=== PATIENT | female | born 1980 | race Caucasian/White ===

== ENCOUNTER 2020-09-14 07:09 | Inpatient (IN) ==
--- NOTE | 2020-09-14 07:34 | Emergency Department Note ---
Impression & Plan Pneumonia due to 2019 novel coronavirus, Hypokalemia, Hypomagnesemia, Hypophosphatemia, Hypoxia ED Provider Note NAME: OSCAR [id number] KINA AGE: 39 SEX: F ARRIVES VIA: Ambulance INFORMANT: Patient, ED PROVIDER(S): Jethro Hebert MD CHIEF COMPLAINT: Hypoxia, Sob PLAN: Disposition: Admit MEDICAL DECISION MAKING: The patient is a 39-year-old woman current snf inmate at [facility] with a past medical history of diabetes, morbid obesity, mood disorder, hypothyroidism hyper lipidemia, GERD who presents emerged department from snf facility for worsening shortness of breath with hypoxia in the 70s in the setting of being diagnosed with COVID-19 on Saturday seen emergency department 2 days ago for worsening symptoms with evidence of Covid pneumonia but with O2 saturation > 92% on room air and was started on dexamethasone. Since then, the patient has been worsening and feels as though she is unable to lie flat without becoming severely short of breath. Per EMS the patient was placed initially on nonrebreather to improve her oxygen saturation and so she was transitioned to nasal cannula. The patient denies any nausea or vomiting but does report regular diarrhea up to 5 times a day. On arrival the patient is ill-appearing, uncomfortable, febrile to 30.3 with heart in the 90s, tachypneic in the mid to upper 20s with blood pressure stable. She is saturating 94% on nasal cannula, 4 L. She does appear dry with cracked mucous membranes. Lungs with scant rhonchi at the bases with intermittent wheeze with mild increased work of breathing/accessory muscle use. EKG without overt acute ischemia. CXR with progression of multifocal PNA 2/2 Covid19. WBC and platelets wnl. H/H similar to prior. VBG unremarkable. Chemistry without acidosis. Potassium 3.0, Magnesium 1.5, and phosphorus 2.4 with repletion provided. LFTs unremarkable. Troponin negative. Bnp wnl. Procalcitonin 0.06, nonspecific and not convincing for superimposed bacterial infection at this time. UA negative for infection. Patient with some improvement after IVF hydration, dexamethasone, mucinex, Combivent. She agrees with plan for ad mission. Resident, Dr. Quijano discussed case with [place]. Gloria, [facility] [place], who will evaluate the patient for admission. This patient was managed with the assistance of resident, Dr. Quijano. I discussed the case with the resident, examined the patient, and confirm the findings and plan as documented in this note. Triage Nursing notes reviewed and agree them. Prior medical records reviewed Vital Signs: reviewed and remarkable for hypoxia and tachypnea. Differential diagnosis: Reactive airway disease, pneumonia, pneumothorax, COPD, CHF, infections, cardiac ischemia, pulmonary embolism, musculoskeletal, gastrointestinal, as well as other pathologies. ER treatment provided: See below. Diagnostics interpreted by me: ECG: Normal sinus rhythm, 92 bpm, no ectopy, no overt ST elevation or depression, QTC 42, QRS 88. Cardiac Monitoring: An order for continuous cardiac monitoring was placed and demonstrated Normal sinus rhythm, 92 bpm, no ectopy. Laboratory studies: See below Imaging studies: XR chest 1V portable CLINICAL HISTORY: SEPSIS COMPARISON STUDY: 09/12/2020 FINDINGS: The cardiac and mediastinal contours remain stable. There are multifocal airspace opacities consistent with a multifocal pneumonia. The findings are minimally progressive. Note is again made of a spinal stimulator.[ IMPRESSION: 1. Slight progression in the multifocal airspace opacities consistent with a multifocal pneumonia. -- CT angio chest PE protocol CT DOSE: 518.68 mGycm HISTORY: 39 years-old Female with PE. Acute hypoxia. COVID Positive. TECHNIQUE: Multiple CTA images of the chest were obtained after the intravenous administration of 120 ml Optiray 320. Coronal and sagittal MIPS were obtained from the axial data set and were submitted for review. All measurements were obtained according to NASCET criteria. A dose lowering technique was utilized adhering to the principles of ALARA. COMPARISON: Chest radiograph of same day FINDINGS: CTA: The heart is mildly enlarged. No pericardial effusion. No thoracic aortic aneurysm or dissection. There is patency of the imaged great vessels. Respiratory motion artifact limits the study. The pulmonary artery is opacified to the level of the proximal subsegmental branches and demonstrates no filling defects to suggest thromboembolic disease. CT CHEST: Unremarkable thyroid. Prominent mildly enlarged mediastinal and hilar lymph nodes measure up to 12 mm in short axis. Trace pleural effusions. No pneu mothorax. Moderate multilobar distribution of patchy groundglass and alveolar opacities. Central airways are patent. Hepatosplenomegaly with hepatic steatosis. Unremarkable soft tissues. The spinous processes at T8 and T9 or surgically absent. Postsurgical metallic density foci noted within the posterior aspect of the central canal and nearly the posterior elements at this level. IMPRESSION: 1. No pulmonary emboli. 2. Moderate multifocal groundglass and alveolar opacities throughout the bilat eral lungs is compatible with multifocal pneumonia. 3. Mild mediastinal and hilar adenopathy, likely reactive. 4. Hepatosplenomegaly with hepatic steatosis. ACT 112: Negative or not required by law. Consultation(s): Case was discussed with Dr. Gloria, [facility] [place], who will evaluate the patient for admission. HPI: The patient is a 39-year-old woman current snf inmate at [facility] with a past medical history of diabetes, morbid obesity, mood disorder, hypothyroidism hyper lipidemia, GERD who presents emerged department from snf facility for worsening shortness of breath with hypoxia in the 70s in the setting of being diagnosed with COVID-19 on Saturday seen emergency department 2 days ago for worsening symptoms with evidence of Covid pneumonia but with O2 saturation > 92% on room air and was started on dexamethasone. Since then, the patient has been worsening and feels as though she is unable to lie flat without becoming severely short of breath. Per EMS the patient was placed initially on nonrebreather to improve her oxygen saturation and so she was transitioned to nasal cannula. The patient denies any nausea or vomiting but does report regular diarrhea up to 5 times a day. ROS: See above HPI for pertinent positives & negatives. A total of 10 systems reviewed and were otherwise negative. PAST MEDICAL HISTORY:See Below PAST SURGICAL HISTORY:See Below FAMILY HISTORY:See Below SOCIAL HISTORY:See Below HOME MEDICATIONS:See Below ALLERGIES:See Below VITALS:See Below PHYSICAL EXAMINATION: GENERAL: Awake, alert, ill-appearing, in no distress, BMI 44. HENT: Normocephalic, atraumatic. Oropharynx with dry/cracked mm. EYES: Normal conjunctiva. Sclera non-icteric. NECK: Supple. No nuchal rigidity. FROM. No JVD. RESPIRATORY: Rhonchi at bases with intermittent wheeze. Mild increased WOB with accessory muscle use. CARDIAC: Regular rate, normal rhythm. Extremities warm and well perfused. Pulses equal. ABDOMEN: Soft, non-distended. No tenderness to palpation. No rebound or guarding. No masses. RECTAL: Deferred. MUSCULOSKELETAL: Chest examination reveals no tenderness. The back is symmetrical on inspection without obvious abnormality. There is no CVA tenderness to palpation. No joint edema. LOWER EXTREMITIES: Calves are equal size bilaterally and non-tender. No edema. No discoloration. NEURO: Normal sensorium. No sensory or motor deficits noted. SKIN: No rash or jaundice noted. Jethro Hebert MD Past Med/Surg History Medical History COVID-19 Diabetes GERD (gastroesophageal reflux disease) Hypercholesterolemia Hypothyroid Mood disorder Morbid obesity with BMI of 40.0-44.9, adult Family History Grandmother Cerebral aneurysm Other Myocardial infarction Stroke Denies family history of Deep vein thrombosis Pulmonary embolism Social History Smoking Status: Former smoker Number of Years Since Quit: 5; Hx Alcohol Use: No Hx Substance Use: No Preferred Language: Hungarian Communication Ability: Effective Kinesiology Professor Required: No Beliefs That Will Affect Care: None Current Living Situation: Other Current Living Situation Comment: [facility] Other Information That Helps Us Care for You: No Feels Safe at Home: No Assistive Devices: Oxygen - Continuous Allergies Allergies Allergy/AdvReac Type Severity Reaction Status Date / Time cephalexin [From Keflex] Allergy Severe Unknown Verified 09/14/20 17:54 ketorolac [From Toradol] Allergy Severe Unknown Verified 09/14/20 17:54 Penicillins Allergy Severe Unknown Verified 09/14/20 17:54 latex Allergy Mild Unknown Verified 09/14/20 17:54 Home Meds Home Medications Medication Instructions Recorded Confirmed albuterol sulfate 1 inh INHALATION QID PRN 09/12/20 09/14/20 ascorbic acid (vitamin C) [Vitamin 1,000 mg PO DAILY 09/12/20 09/14/20 C] baclofen 10 mg PO DAILY@11,16 09/12/20 09/14/20 bumetanide [Bumex] 1 mg PO BID 09/12/20 09/14/20 buspirone [BuSpar] 30 mg PO BID 09/12/20 09/14/20 cholecalciferol (vitamin D3) 50 mcg PO DAILY 09/12/20 09/14/20 [Vitamin D3] docusate sodium [Colace] 200 mg PO DAILY 09/12/20 09/14/20 gabapentin 300 mg PO TID 09/12/20 09/14/20 glimepiride 2 mg PO DAILY PRN 09/12/20 09/14/20 levothyroxine 50 mcg PO DAILY 09/12/20 09/14/20 metformin 1,000 mg PO BID 09/12/20 09/14/20 methocarbamol 1,000 mg PO BID 09/12/20 09/14/20 multivitamin 1 tab PO DAILY 09/12/20 09/14/20 nortriptyline 50 mg PO HS 09/12/20 09/14/20 omeprazole 40 mg PO DAILY 09/12/20 09/14/20 oxcarbazepine 150 mg PO BID 09/12/20 09/14/20 oxcarbazepine [Trileptal] 600 mg PO HS 09/12/20 09/14/20 pantoprazole 40 mg PO BID 09/12/20 09/14/20 prazosin 2 mg PO HS 09/12/20 09/14/20 propranolol 40 mg PO TID 09/12/20 09/14/20 quetiapine 400 mg PO BID 09/12/20 09/14/20 sertraline 200 mg PO DAILY 09/12/20 09/14/20 simvastatin 10 mg PO HS 09/12/20 09/14/20 topiramate 100 mg PO BID 09/12/20 09/14/20 trazodone 300 mg PO HS 09/12/20 09/14/20 trolamine salicylate [Analgesic 1 applic TOPICAL BID PRN 09/12/20 09/14/20 Creme] zinc sulfate 220 mg PO TID 09/12/20 09/14/20 dexamethasone 6 mg PO DAILY 09/14/20 09/14/20 Results & Data (ED) Vital Signs Vital Signs - 24 hr 09/14/20 07:21 09/14/20 07:23 09/14/20 07:30 Temperature 38.3 C H Temperature Source Oral Pulse Rate 94 H 93 H Pulse Rate from SpO2 Sensor 92 H Respiratory Rate 20 26 H Respiratory Effort / Characteristics Spontaneous Spontaneous Respiratory Depth Normal Blood Pressure 175/91 H 138/62 Blood Pressure Mean 119 87 Pulse Oximetry 79 L 94 94 Oxygen Delivery Method Room Air Nasal Cannula Oxygen Flow Rate 4 Sepsis Recent Fever Within 48 Hours Yes Sepsis New/Unexplained Change in Mental Status N/A Sepsis Action Taken by Nursing No Action Required 09/14/20 07:47 09/14/20 08:30 09/14/20 08:51 Temperature Temperature Source Pulse Rate 93 H 93 H Pulse Rate from SpO2 Sensor 93 H 93 H Respiratory Rate 29 H 22 Respiratory Effort / Characteristics Spontaneous Respiratory Depth Blood Pressure 136/80 125/87 Blood Pressure Mean 98 99 Pulse Oximetry 94 94 Oxygen Delivery Method Nasal Cannula Nasal Cannula Oxygen Flow Rate 4 4 Sepsis Recent Fever Within 48 Hours Sepsis New/Unexplained Change in Mental Status Sepsis Action Taken by Nursing 09/14/20 09:00 09/14/20 09:30 09/14/20 10:00 Temperature Temperature Source Pulse Rate 93 H 94 H 91 H Pulse Rate from SpO2 Sensor 93 H 94 H 89 Respiratory Rate 26 H 27 H 28 H Respiratory Effort / Characteristics Respiratory Depth Blood Pressure 135/76 142/86 H 134/63 Blood Pressure Mean 95 104 86 Pulse Oximetry 95 91 92 Oxygen Delivery Method Nasal Cannula Nasal Cannula Nasal Cannula Oxygen Flow Rate 4 4 4 Sepsis Recent Fever Within 48 Hours Sepsis New/Unexplained Change in Mental Status Sepsis Action Taken by Nursing 09/14/20 10:01 09/14/20 10:04 09/14/20 11:13 Temperature 38 C H Temperature Source Oral Pulse Rate 90 91 H Pulse Rate from SpO2 Sensor 91 H 91 H Respiratory Rate 33 H 23 Respiratory Effort / Characteristics Respiratory Depth Blood Pressure 123/61 Blood Pressure Mean 81 Pulse Oximetry 92 92 Oxygen Delivery Method Oxygen Flow Rate Sepsis Recent Fever Within 48 Hours Sepsis New/Unexplained Change in Mental Status Sepsis Action Taken by Nursing 09/14/20 11:30 09/14/20 12:07 09/14/20 12:30 Temperature Temperature Source Pulse Rate 88 91 H 90 Pulse Rate from SpO2 Sensor 88 91 H 90 Respiratory Rate 28 H 31 H 31 H Respiratory Effort / Characteristics Respiratory Depth Blood Pressure 108/51 L 134/67 130/85 Blood Pressure Mean 70 89 100 Pulse Oximetry 95 95 96 Oxygen Delivery Method Nasal Cannula Nasal Cannula Oxygen Flow Rate 4 4 Sepsis Recent Fever Within 48 Hours Sepsis New/Unexplained Change in Mental Status Sepsis Action Taken by Nursing Laboratory Data Attestation: I reviewed the patient's lab results. Result diagrams: 09/14/20 09:31 09/14/20 09:31 Lab Results 09/14/20 09/14/20 09/14/20 Range/Units 08:05 08:05 08:05 WBC Cancelled RBC Cancelled Hgb Cancelled Hct Cancelled MCV Cancelled MCH Cancelled MCHC Cancelled RDW Std Deviation Cancelled RDW Coeff of Giselle Cancelled Plt Count Cancelled MPV Cancelled Immature Gran % (Auto) Cancelled Neut % (Auto) Cancelled Lymph % (Auto) Cancelled [place]vier % (Auto) Cancelled Eos % (Auto) Cancelled Baso % (Auto) Cancelled Neut # (Auto) Cancelled Lymph # (Auto) Cancelled [place] # (Auto) Cancelled Eos # (Auto) Cancelled Baso # (Auto) Cancelled Immature Gran # (Auto) Cancelled Absolute Nucleated RBC Cancelled Nucleated RBC % (auto) Cancelled Neutrophils % (Manual) Cancelled Band Neutrophils % Cancelled Lymphocytes % (Manual) Cancelled Prolymphocyte % Cancelled Reactive Lymphs % (Man) Cancelled Monocytes % (Manual) Cancelled Eosinophils % (Manual) Cancelled Basophils % (Manual) Cancelled Metamyelocytes % (Man) Cancelled Myelocytes % (Man) Cancelled Promyelocytes % (Man) Cancelled Blast Cells % (Manual) Cancelled Plasma Cell % (Manual) Cancelled Other Cells % Cancelled Nucleated RBC % Cancelled Neutrophils # (Manual) Cancelled Band Neutrophils # Cancelled Total Absolute Neuts Cancelled Lymphocytes # (Manual) Cancelled Prolymphocyte # Cancelled Reactive Lymphs # Cancelled Total Abs Lymphocytes Cancelled Monocytes # (Manual) Cancelled Eosinophils # (Manual) Cancelled Basophils # (Manual) Cancelled Metamyelocytes # (Man) Cancelled Myelocytes # (Manual) Cancelled Promyelocytes # (Man) Cancelled Blast Cells # (Man) Cancelled Plasma Cell # (Manual) Cancelled Other Cells # Cancelled Nucleated RBCs # (Man) Cancelled Hypersegmented Neuts Cancelled Hyposegmented Neuts Cancelled Hypogranular Neuts Cancelled Large Granular Lymphs Cancelled # Lrg Granular Lymphs Cancelled Hairy Cells Cancelled Smudge Cells Cancelled Toxic Granulation Cancelled Toxic Vacuolation Cancelled Dohle Bodies Cancelled Micah Rods Cancelled Platelet Estimate Cancelled Hypogranular Platelets Cancelled Clumped Platelets Cancelled Giant Platelets Cancelled Platelet Satelliting Cancelled RBC Morphology Cancelled Polychromasia Cancelled Hypochromasia Cancelled Poikilocytosis Cancelled Basophilic Stippling Cancelled Anisocytosis Cancelled Microcytosis Cancelled Macrocytosis Cancelled Spherocytes Cancelled Pappenheimer Bodies Cancelled Sickle Cells Cancelled Target Cells Cancelled Tear Drop Cells Cancelled Ovalocytes Cancelled Stomatocytes Cancelled [place] Bodies Cancelled Echinocytes Cancelled Acanthocytes (Spur) Cancelled Rouleaux Cancelled RBC Agglutinates Cancelled Schistocytes Cancelled RBC Morph Comment Cancelled Sezary Cell Cancelled PT INR APTT PTT Ratio D-Dimer VBG pH (7.36-7.41) VBG pCO2 (38-50) mmHg VBG pO2 mmHg VBG HCO3 mmol/L VBG O2 Saturation % VBG Base Excess mEq/L Barometric Pressure mm/Hg Sodium 141 (136-145) mmol/L Potassium 2.9 L (3.5-5.1) mmol/L Chloride 106 (98-107) mmol/L Carbon Dioxide 25 (21-32) mmol/L Anion Gap 10.0 (3-11) BUN 13 (7-18) mg/dl Creatinine 0.95 (0.6-1.2) mg/dl Est Cr Clr Drug Dosing 103.2 ml/min Est GFR ( Amer) 87.4 Est GFR (Non-Af Amer) 75.4 BUN/Creatinine Ratio 13.3 (10-20) Glucose 165 H (70-99) mg/dl Lactate (0.4-2.0) mmol/L Calcium 9.0 (8.5-10.1) mg/dl Phosphorus 2.4 L (2.5-4.9) mg/dl Magnesium 1.5 L (1.8-2.4) mg/dl Total Bilirubin 0.3 (0.2-1) mg/dl Direct Bilirubin 0.1 (0-0.2) mg/dl AST 32 (15-37) U/L ALT 34 (12-78) U/L Alkaline Phosphatase 99 (45-117) U/L Troponin I < 0.015 (0-0.045) ng/ml NT-Pro-B Natriuret Pep 269 (0-450) pg/ml Total Protein 8.0 (6.4-8.2) gm/dl Albumin 3.2 L (3.4-5.0) gm/dl Globulin 4.8 H (2.5-4.0) gm/dl Albumin/Globulin Ratio 0.7 L (0.9-2) Procalcitonin (0-0.5) ng/ml HCG, Qual Cancelled Specimen Hemolysis 09/14/20 09/14/20 09/14/20 Range/Units 08:05 08:28 08:28 WBC RBC Hgb Hct MCV MCH MCHC RDW Std Deviation RDW Coeff of Giselle Plt Count MPV Immature Gran % (Auto) Neut % (Auto) Lymph % (Auto) [place]vier % (Auto) Eos % (Auto) Baso % (Auto) Neut # (Auto) Lymph # (Auto) [place] # (Auto) Eos # (Auto) Baso # (Auto) Immature Gran # (Auto) Absolute Nucleated RBC Nucleated RBC % (auto) Neutrophils % (Manual) Band Neutrophils % Lymphocytes % (Manual) Prolymphocyte % Reactive Lymphs % (Man) Monocytes % (Manual) Eosinophils % (Manual) Basophils % (Manual) Metamyelocytes % (Man) Myelocytes % (Man) Promyelocytes % (Man) Blast Cells % (Manual) Plasma Cell % (Manual) Other Cells % Nucleated RBC % Neutrophils # (Manual) Band Neutrophils # Total Absolute Neuts Lymphocytes # (Manual) Prolymphocyte # Reactive Lymphs # Total Abs Lymphocytes Monocytes # (Manual) Eosinophils # (Manual) Basophils # (Manual) Metamyelocytes # (Man) Myelocytes # (Manual) Promyelocytes # (Man) Blast Cells # (Man) Plasma Cell # (Manual) Other Cells # Nucleated RBCs # (Man) Hypersegmented Neuts Hyposegmented Neuts Hypogranular Neuts Large Granular Lymphs # Lrg Granular Lymphs Hairy Cells Smudge Cells Toxic Granulation Toxic Vacuolation Dohle Bodies [place] Rods Platelet Estimate Hypogranular Platelets Clumped Platelets Giant Platelets Platelet Satelliting RBC Morphology Polychromasia Hypochromasia Poikilocytosis Basophilic Stippling Anisocytosis Microcytosis Macrocytosis Spherocytes Pappenheimer Bodies Sickle Cells Target Cells Tear Drop Cells Ovalocytes Stomatocytes [place] Bodies Echinocytes Acanthocytes (Spur) Rouleaux RBC Agglutinates Schistocytes RBC Morph Comment Sezary Cell PT Cancelled INR Cancelled APTT Cancelled PTT Ratio Cancelled D-Dimer Cancelled VBG pH 7.43 H (7.36-7.41) VBG pCO2 36 L (38-50) mmHg VBG pO2 73 mmHg VBG HCO3 23 mmol/L VBG O2 Saturation 94.2 % VBG Base Excess -1.0 mEq/L Barometric Pressure 733.9 mm/Hg Sodium (136-145) mmol/L Potassium (3.5-5.1) mmol/L Chloride (98-107) mmol/L Carbon Dioxide (21-32) mmol/L Anion Gap (3-11) BUN (7-18) mg/dl Creatinine (0.6-1.2) mg/dl Est Cr Clr Drug Dosing ml/min Est GFR ( Amer) Est GFR (Non-Af Amer) BUN/Creatinine Ratio (10-20) Glucose (70-99) mg/dl Lactate 1.7 (0.4-2.0) mmol/L Calcium (8.5-10.1) mg/dl Phosphorus (2.5-4.9) mg/dl Magnesium (1.8-2.4) mg/dl Total Bilirubin (0.2-1) mg/dl Direct Bilirubin (0-0.2) mg/dl AST (15-37) U/L ALT (12-78) U/L Alkaline Phosphatase (45-117) U/L Troponin I (0-0.045) ng/ml NT-Pro-B Natriuret Pep (0-450) pg/ml Total Protein (6.4-8.2) gm/dl Albumin (3.4-5.0) gm/dl Globulin (2.5-4.0) gm/dl Albumin/Globulin Ratio (0.9-2) Procalcitonin (0-0.5) ng/ml HCG, Qual Specimen Hemolysis 09/14/20 09/14/20 09/14/20 Range/Units 09:31 09:31 09:31 WBC 5.85 RBC 3.82 L Hgb 10.6 L Hct 32.4 L MCV 84.8 MCH 27.7 MCHC 32.7 RDW Std Deviation 46.0 RDW Coeff of Giselle 14.8 H Plt Count 221 MPV 11.3 H Immature Gran % (Auto) 0.9 Neut % (Auto) 76.7 Lymph % (Auto) 20.3 Sevier % (Auto) 1.9 Eos % (Auto) 0.2 Baso % (Auto) 0.0 Neut # (Auto) 4.49 Lymph # (Auto) 1.19 L [place] # (Auto) 0.11 Eos # (Auto) 0.01 Baso # (Auto) 0.00 Immature Gran # (Auto) 0.05 H Absolute Nucleated RBC Nucleated RBC % (auto) Neutrophils % (Manual) Band Neutrophils % Lymphocytes % (Manual) Prolymphocyte % Reactive Lymphs % (Man) Monocytes % (Manual) Eosinophils % (Manual) Basophils % (Manual) Metamyelocytes % (Man) Myelocytes % (Man) Promyelocytes % (Man) Blast Cells % (Manual) Plasma Cell % (Manual) Other Cells % Nucleated RBC % Neutrophils # (Manual) Band Neutrophils # Total Absolute Neuts Lymphocytes # (Manual) Prolymphocyte # Reactive Lymphs # Total Abs Lymphocytes Monocytes # (Manual) Eosinophils # (Manual) Basophils # (Manual) Metamyelocytes # (Man) Myelocytes # (Manual) Promyelocytes # (Man) Blast Cells # (Man) Plasma Cell # (Manual) Other Cells # Nucleated RBCs # (Man) Hypersegmented Neuts Hyposegmented Neuts Hypogranular Neuts Large Granular Lymphs # Lrg Granular Lymphs Hairy Cells Smudge Cells Toxic Granulation Toxic Vacuolation Dohle Bodies [place] Rods Platelet Estimate Hypogranular Platelets Clumped Platelets Giant Platelets Platelet Satelliting RBC Morphology Polychromasia Hypochromasia Poikilocytosis Basophilic Stippling Anisocytosis Microcytosis Macrocytosis Spherocytes Pappenheimer Bodies Sickle Cells Target Cells Tear Drop Cells Ovalocytes Stomatocytes [place] Bodies Echinocytes Acanthocytes (Spur) Rouleaux RBC Agglutinates Schistocytes RBC Morph Comment Sezary Cell PT INR APTT PTT Ratio D-Dimer VBG pH (7.36-7.41) VBG pCO2 (38-50) mmHg VBG pO2 mmHg VBG HCO3 mmol/L VBG O2 Saturation % VBG Base Excess mEq/L Barometric Pressure mm/Hg Sodium 140 (136-145) mmol/L Potassium 3.0 L (3.5-5.1) mmol/L Chloride 107 (98-107) mmol/L Carbon Dioxide 23 (21-32) mmol/L Anion Gap 10.0 (3-11) BUN 13 (7-18) mg/dl Creatinine 0.86 (0.6-1.2) mg/dl Est Cr Clr Drug Dosing 114.0 ml/min Est GFR ( Amer) 98.6 Est GFR (Non-Af Amer) 85.1 BUN/Creatinine Ratio 14.8 (10-20) Glucose 158 H (70-99) mg/dl Lactate (0.4-2.0) mmol/L Calcium 8.7 (8.5-10.1) mg/dl Phosphorus (2.5-4.9) mg/dl Magnesium (1.8-2.4) mg/dl Total Bilirubin 0.3 (0.2-1) mg/dl Direct Bilirubin (0-0.2) mg/dl AST 35 (15-37) U/L ALT 34 (12-78) U/L Alkaline Phosphatase 92 (45-117) U/L Troponin I (0-0.045) ng/ml NT-Pro-B Natriuret Pep (0-450) pg/ml Total Protein 7.7 (6.4-8.2) gm/dl Albumin 3.0 L (3.4-5.0) gm/dl Globulin 4.7 H (2.5-4.0) gm/dl Albumin/Globulin Ratio 0.6 L (0.9-2) Procalcitonin 0.06 (0-0.5) ng/ml HCG, Qual Negative Specimen Hemolysis 09/14/20 Range/Units 10:38 WBC RBC Hgb Hct MCV MCH MCHC RDW Std Deviation RDW Coeff of Giselle Plt Count MPV Immature Gran % (Auto) Neut % (Auto) Lymph % (Auto) [place] % (Auto) Eos % (Auto) Baso % (Auto) Neut # (Auto) Lymph # (Auto) [place] # (Auto) Eos # (Auto) Baso # (Auto) Immature Gran # (Auto) Absolute Nucleated RBC Nucleated RBC % (auto) Neutrophils % (Manual) Band Neutrophils % Lymphocytes % (Manual) Prolymphocyte % Reactive Lymphs % (Man) Monocytes % (Manual) Eosinophils % (Manual) Basophils % (Manual) Metamyelocytes % (Man) Myelocytes % (Man) Promyelocytes % (Man) Blast Cells % (Manual) Plasma Cell % (Manual) Other Cells % Nucleated RBC % Neutrophils # (Manual) Band Neutrophils # Total Absolute Neuts Lymphocytes # (Manual) Prolymphocyte # Reactive Lymphs # Total Abs Lymphocytes Monocytes # (Manual) Eosinophils # (Manual) Basophils # (Manual) Metamyelocytes # (Man) Myelocytes # (Manual) Promyelocytes # (Man) Blast Cells # (Man) Plasma Cell # (Manual) Other Cells # Nucleated RBCs # (Man) Hypersegmented Neuts Hyposegmented Neuts Hypogranular Neuts Large Granular Lymphs # Lrg Granular Lymphs Hairy Cells Smudge Cells Toxic Granulation Toxic Vacuolation Dohle Bodies Mic[place] Rods Platelet Estimate Hypogranular Platelets Clumped Platelets Giant Platelets Platelet Satelliting RBC Morphology Polychromasia Hypochromasia Poikilocytosis Basophilic Stippling Anisocytosis Microcytosis Macrocytosis Spherocytes Pappenheimer Bodies Sickle Cells Target Cells Tear Drop Cells Ovalocytes Stomatocytes [place] Bodies Echinocytes Acanthocytes (Spur) Rouleaux RBC Agglutinates Schistocytes RBC Morph Comment Sezary Cell PT 10.8 INR 1.0 APTT 31.0 PTT Ratio 1.1 D-Dimer 710 H* VBG pH (7.36-7.41) VBG pCO2 (38-50) mmHg VBG pO2 mmHg VBG HCO3 mmol/L VBG O2 Saturation % VBG Base Excess mEq/L Barometric Pressure mm/Hg Sodium (136-145) mmol/L Potassium (3.5-5.1) mmol/L Chloride (98-107) mmol/L Carbon Dioxide (21-32) mmol/L Anion Gap (3-11) BUN (7-18) mg/dl Creatinine (0.6-1.2) mg/dl Est Cr Clr Drug Dosing ml/min Est GFR ( Amer) Est GFR (Non-Af Amer) BUN/Creatinine Ratio (10-20) Glucose (70-99) mg/dl Lactate (0.4-2.0) mmol/L Calcium (8.5-10.1) mg/dl Phosphorus (2.5-4.9) mg/dl Magnesium (1.8-2.4) mg/dl Total Bilirubin (0.2-1) mg/dl Direct Bilirubin (0-0.2) mg/dl AST (15-37) U/L ALT (12-78) U/L Alkaline Phosphatase (45-117) U/L Troponin I (0-0.045) ng/ml NT-Pro-B Natriuret Pep (0-450) pg/ml Total Protein (6.4-8.2) gm/dl Albumin (3.4-5.0) gm/dl Globulin (2.5-4.0) gm/dl Albumin/Globulin Ratio (0.9-2) Procalcitonin (0-0.5) ng/ml HCG, Qual Specimen Hemolysis Administered Medications Acetaminophen (Acetaminophen 325 Mg Tab) 650 mg PO Q4H PRN PRN Reason: Pain or Fever Stop: 10/14/20 13:53 Last Admin: 09/14/20 17:50 Dose: 650 mg Documented by: [id number] Albuterol (Albut/Ipratrop 3mg/0.5mg Neb 3 Ml Vial) 3 ml NEB QIDR [facility] Stop: 10/14/20 14:59 Last Admin: 09/14/20 19:06 Dose: 3 ml Documented by: [id number] Admin: 09/14/20 15:37 Dose: 3 ml Documented by: [id number] Baclofen (Baclofen 10 Mg Tab) 10 mg PO DAILY@11,16 [facility] Stop: 10/14/20 15:59 Last Admin: 09/14/20 19:40 Dose: 10 mg Documented by: [id number] Bumetanide (Bumetanide 1 Mg Tab) 1 mg PO [id number] [facility] Stop: 10/14/20 16:59 Last Admin: 09/14/20 19:40 Dose: 1 mg Documented by: [id number] Buspirone HCl (Buspirone 15 Mg Tab) 30 mg PO BID [facility] Stop: 10/14/20 20:59 Last Admin: 09/14/20 22:57 Dose: 30 mg Documented by: [id number] Gabapentin (Gabapentin 300 Mg Cap) 300 mg PO TID [facility] Stop: 10/14/20 13:59 Last Admin: 09/14/20 22:57 Dose: 300 mg Documented by: [id number] Admin: 09/14/20 15:39 Dose: 300 mg Documented by: [id number] Heparin Sodium (Porcine) (Heparin Sod 5,000 Unit/0.5 Ml Vial) 5,000 units SQ Q8 [facility] Stop: 10/14/20 14:29 Last Admin: 09/14/20 21:37 Dose: 5,000 units Documented by: [id number] Admin: 09/14/20 15:39 Dose: 5,000 units Documented by: [id number] Ibuprofen (Ibuprofen 200 Mg Tab) 800 mg PO Q8H PRN PRN Reason: Pain Stop: 10/14/20 21:07 Last Admin: 09/14/20 21:26 Dose: 800 mg Documented by: [id number] Insulin Aspart (Insulin Aspart 100 Units/Ml 3 Ml Pen) 0 units SC ACHS [facility] Stop: 10/14/20 16:29 Last Admin: 09/14/20 21:38 Dose: 4 units Documented by: [id number] Cosigned by: [id number] Admin: 09/14/20 18:19 Dose: 7 units Documented by: [id number] Cosigned by: [id number] Methocarbamol (Methocarbamol 500 Mg Tablet) 1,000 mg PO BID [facility] Stop: 10/14/20 20:59 Last Admin: 09/14/20 22:58 Dose: 1,000 mg Documented by: [id number] Nortriptyline HCl (Nortriptyline Hcl 25 Mg Cap) 50 mg PO [facility] Stop: 10/14/20 20:59 Last Admin: 09/14/20 21:28 Dose: 50 mg Documented by: [id number] Oxcarbazepine (Oxcarbazepine 150 Mg Tablet) 150 mg PO BID@0700,1600 [facility] Stop: 10/14/20 15:59 Last Admin: 09/14/20 15:41 Dose: 150 mg Documented by: [id number] Oxcarbazepine (Oxcarbazepine 150 Mg Tablet) 600 mg PO HS [facility] Stop: 10/14/20 20:59 Last Admin: 09/14/20 21:29 Dose: 600 mg Documented by: [id number] Pantoprazole Sodium (Pantoprazole 40 Mg Tab) 40 mg PO BID [facility] Stop: 10/14/20 20:59 Last Admin: 09/14/20 21:28 Dose: 40 mg Documented by: [id number] Prazosin HCl (Prazosin Hcl 1 Mg Cap) 2 mg PO [facility] Stop: 10/14/20 20:59 Last Admin: 09/14/20 21:28 Dose: 2 mg Documented by: [id number] Propranolol HCl (Propranolol Hcl 20 Mg Tab) 40 mg PO TID [facility] Stop: 10/14/20 14:29 Last Admin: 09/14/20 21:29 Dose: 40 mg Documented by: [id number] Admin: 09/14/20 15:40 Dose: 40 mg Documented by: [id number] Quetiapine Fumarate (Quetiapine Fumarate 200 Mg Tab) 400 mg PO BID [facility] Stop: 10/14/20 20:59 Last Admin: 09/14/20 21:32 Dose: 400 mg Documented by: [id number] Simvastatin (Simvastatin 10 Mg Tab) 10 mg PO HS [facility] Stop: 10/14/20 20:59 Last Admin: 09/14/20 21:33 Dose: 10 mg Documented by: [id number] Sodium Chloride (Sodium Chloride 0.9% 10ml Flush) 30 ml IV DAILY@1300 [facility] Stop: 09/18/20 13:01 Last Admin: 09/14/20 17:53 Dose: 30 ml Documented by: [id number] Topiramate (Topiramate 100 Mg Tab) 100 mg PO BID [facility] Stop: 10/14/20 20:59 Last Admin: 09/14/20 21:34 Dose: 100 mg Documented by: [id number] Trazodone HCl (Trazodone Hcl 100 Mg Tab) 300 mg PO HS [facility] Stop: 10/14/20 20:59 Last Admin: 09/14/20 21:33 Dose: 300 mg Documented by: [id number] Zinc Sulfate (Zinc Sulfate 220 Mg Capsule) 220 mg PO TID [facility] Stop: 10/14/20 20:59 Last Admin: 09/14/20 21:32 Dose: 220 mg Documented by: [id number] Discontinued Medications Albuterol (Ipratropium Iva/Albuterol Respimat Inh) 2 puffs INH NOW STA Stop: 09/14/20 07:52 Last Admin: 09/14/20 08:55 Dose: 2 puffs Documented by: [id number] Dexamethasone (Dexamethasone Sod Inj 10 Mg/Ml Vial) 6 mg IV NOW ONE Stop: 09/14/20 07:52 Last Admin: 09/14/20 08:54 Dose: 6 mg Documented by: [id number] Guaifenesin (Guaifenesin 600 Mg Tabcr) 600 mg PO NOW STA Stop: 09/14/20 07:52 Last Admin: 09/14/20 08:51 Dose: 600 mg Documented by: [id number] Acetaminophen (Ofirmev) 1,000 mg in 100 mls @ 400 mls/hr IV NOW STA Stop: 09/14/20 08:05 Last Infusion: 09/14/20 09:23 Dose: 0 mls/hr Documented by: [id number] Admin: 09/14/20 08:54 Dose: 400 mls/hr Documented by: [id number] Sodium Chloride (Nss 1000ml) 1,000 mls @ 999 mls/hr IV .Q1H1M ONE Stop: 09/14/20 08:56 Last Infusion: 09/14/20 09:53 Dose: 0 mls/hr Documented by: [id number] Admin: 09/14/20 08:52 Dose: 999 mls/hr Documented by: [id number] Magnesium Sulfate/Dextrose (Magnesium Sulfate / D5w) 1 gm in 100 mls @ 100 mls/hr IV NOW STA Stop: 09/14/20 10:05 Last Infusion: 09/14/20 10:56 Dose: 0 mls/hr Documented by: [id number] Admin: 09/14/20 09:40 Dose: 100 mls/hr Documented by: [id number] Potassium Chloride (K Branden / Wtr) 10 meq in 100 mls @ 100 mls/hr IV Q1H [facility] Stop: 09/14/20 11:14 Last Infusion: 09/14/20 11:59 Dose: 0 mls/hr Documented by: [id number] Admin: 09/14/20 10:57 Dose: 100 mls/hr Documented by: [id number] Infusion: 09/14/20 10:56 Dose: 0 mls/hr Documented by: [id number] Admin: 09/14/20 09:40 Dose: 100 mls/hr Documented by: [id number] Potassium Phosphate 6 mmol/ (Sodium Chloride) 252 mls @ 88 mls/hr IV ONE ONE Stop: 09/14/20 14:21 Last Infusion: 09/14/20 16:02 Dose: 0 mls/hr Documented by: [id number] Admin: 09/14/20 12:05 Dose: 88 mls/hr Documented by: [id number] Remdesivir 200 mg/ Sodium (Chloride) 250 mls @ 125 mls/hr IV ONE ONE; Protocol Stop: 09/14/20 16:29 Last Infusion: 09/14/20 17:44 Dose: 0 mls/hr Documented by: [id number] Admin: 09/14/20 15:40 Dose: 125 mls/hr Documented by: [id number] Ioversol (Optiray 320 125ml) 120 ml IV ONCE ONE Stop: 09/14/20 11:55 Last Admin: 09/14/20 11:55 Dose: 120 ml Documented by: [id number] Potassium Phosphate (Potassium Phos 3 Mmol/1 Ml Infusion) 6 mmol IV NOW STA Stop: 09/14/20 09:11 Last Admin: 09/14/20 12:06 Dose: Not Given Documented by: [id number] Discharge Plan Visit Data Chief Complaint: Shortness of Breath/Dyspnea ED Provider: Jethro Hebert ED Midlevel Provider: Lidia Quijano Discharge Problem: Pneumonia due to 2019 novel coronavirus, Hypokalemia, Hypomagnesemia, Hypophosphatemia, Hypoxia Patient Disposition: Admitted As Inpatient Discharge Instructions Interventions: ED Discharge Assessment Last Done: 09/14/20 13:16
[2020-09-14] MEDS ORDERED: guaiFENesin 600 MG TABCR PO STA (07:51)
[2020-09-14] MEDS ORDERED: DEXAMETHASONE SOD INJ 10 MG/ML VIAL IV ONE (07:51)
[2020-09-14] MEDS ORDERED: IPRATROPIUM BROMIDE/ALBUTEROL respimat INH INH STA (07:51)
[2020-09-14] MEDS ORDERED: ACETAMINOPHEN 1,000 MG/100 ML VIAL IV STA (07:51)
[2020-09-14] MEDS ORDERED: SODIUM CHLORIDE 0.9% 1000ML 1,000 ML IV ONE (07:56)
[2020-09-14 08:42] LABS: Oxygen Saturation VBG 94.2 %; pH VBG 7.43 (7.36-7.41)
[2020-09-14 08:58] LABS: Alanine Aminotransferase 34 U/L (12-78); Albumin Level 3.2 gm/dl (3.4-5.0); Aspartate Aminotransferase 32 U/L (15-37); BUN Creatinine Ratio 13.3 (10-20); Bilirubin Direct 0.1 mg/dl (0-0.2); Blood Urea Nitrogen 13 mg/dl (7-18); Carbon Dioxide 25 mmol/L (21-32); Chloride 106 mmol/L (98-107); Creatinine Clr Calc Pharmacy 103.2 ml/min; Est GFR (African American) 87.4; Est GFR (Non-African American) 75.4; Glucose 165 mg/dl (70-99); Magnesium 1.5 mg/dl (1.8-2.4); Potassium 2.9 mmol/L (3.5-5.1); Sodium 141 mmol/L (136-145)
[2020-09-14 09:03] LABS: Albumin Globulin Ratio 0.7 (0.9-2); Alkaline Phosphatase 99 U/L (45-117); Bilirubin,Total 0.3 mg/dl (0.2-1); Globulin 4.8 gm/dl (2.5-4.0); NT Pro B Type Natriuretic Pept 269 pg/ml (0-450); Phosphorus 2.4 mg/dl (2.5-4.9); Troponin I < 0.015 ng/ml (0-0.045)
[2020-09-14] MEDS ORDERED: MAGNESIUM SULFATE / D5W 1 GM/100 ML BAG IV STA (09:06)
[2020-09-14] MEDS ORDERED: POTASSIUM PHOS 3 MMOL/1 ML INFUSION IV STA (09:10)
[2020-09-14 09:39] LABS: Eosinophils # (auto) 0.01 K/uL (0-0.5); Eosinophils % (auto) 0.2 %; Hematocrit (blood only) 32.4 % (37-47); Hemoglobin 10.6 g/dL (12.0-16.0); Immature Granulocytes # (auto) 0.05 K/uL (0.00-0.02); Immature Granulocytes % (auto) 0.9 %; Lymphocytes # (auto) 1.19 K/uL (1.2-3.4); Lymphocytes % (auto) 20.3 %; Mean Corpuscular Hemoglobin 27.7 pg (25-34); Mean Corpuscular Hgb Conc 32.7 g/dL (32-36); Mean Corpuscular Volume 84.8 fL (80-100); Mean Platelet Volume 11.3 fL (7.4-10.4); Monocytes # (auto) 0.11 K/uL (0.11-0.59); Monocytes % (auto) 1.9 %; Neutrophils # (auto) 4.49 K/uL (1.4-6.5); Neutrophils % (auto) 76.7 %; Platelet Count 221 K/uL (130-400); RDW Coefficient of Variation 14.8 % (11.5-14.5); Red Blood Count 3.82 M/uL (4.2-5.4); White Blood Count 5.85 K/uL (4.8-10.8)
[2020-09-14] MEDS: POTASSIUM CHLORIDE / WTR 10 MEQ/100 ML PLCT IV SCH ×2 (09:40→10:57)
--- NOTE | 2020-09-14 09:40 | XRay Report ---
XR chest 1V portable CLINICAL HISTORY: SEPSIS COMPARISON STUDY: 09/12/2020 FINDINGS: The cardiac and mediastinal contours remain stable. There are multifocal airspace opacities consistent with a multifocal pneumonia. The findings are minimally progressive. Note is again made o f a spinal stimulator.[ IMPRESSION: 1. Slight progression in the multifocal airspace opacities consistent with a multifocal pneumonia. ACT 112: Negative or not required by law. Electronically signed by: Neftali Middleton M.D. 09/14/2020 9:39 AM
[2020-09-14 09:58] LABS: Pregnancy Test, Serum Negative (Negative)
--- NOTE | 2020-09-14 10:00 | Electrocardiogram Report ---
Test Reason : Blood Pressure : / mmHG Vent. Rate : 092 BPM Atrial Rate : 092 BPM P-R Int : 172 ms QRS Dur : 088 ms QT Int : 390 ms P-R-T Axes : 022 022 012 degrees QTc Int : 482 ms Normal sinus rhythm Poor R wave progression, consider anterior VA vs. lead placement vs. LVH Abnormal ECG When compared with ECG of 12-SEP-2020 09:49, No significant change was found Confirmed by Shahriar Lunsford ([id number]) on 09/14/2020 9:59:54 AM Referred By: REFERRED SELF Confirmed By:Edwin Lunsford
[2020-09-14 10:20] LABS: Albumin Globulin Ratio 0.6 (0.9-2); BUN Creatinine Ratio 14.8 (10-20); Bilirubin,Total 0.3 mg/dl (0.2-1); Calcium 8.7 mg/dl (8.5-10.1); Est GFR (African American) 98.6; Est GFR (Non-African American) 85.1; Globulin 4.7 gm/dl (2.5-4.0); Total Protein 7.7 gm/dl (6.4-8.2)
[2020-09-14 10:21] LABS: Procalcitonin 0.06 ng/ml (0-0.5)
--- NOTE | 2020-09-14 10:39 | Emergency Department Note ---
ED Visit Note This patient was seen with Dr. Hebert. We discussed and agreed upon the history, physical, assessment and plan. . Resident Activity Tracking Resident Involvement: Resident Care Provided Care Provided: Adult ED
[2020-09-14 10:58] LABS: Partial Thromboplastin Ratio 1.1; Prothrombin Time 10.8 Seconds (9.0-12.0)
[2020-09-14 10:59] LABS: D Dimer 710 ug/L FEU (0-500)
[2020-09-14] MEDS ORDERED: POTASSIUM PHOSPHATE 6 MMOL in SODIUM CHLORIDE 0.9% 250 ML IV ONE (11:30)
[2020-09-14] MEDS ORDERED: OPTIRAY 320 125ml IV ONE (11:54)
--- NOTE | 2020-09-14 12:10 | CT Scan Report ---
CT angio chest PE protocol CT DOSE: 518.68 mGycm HISTORY: 39 years-old Female with PE. Acute hypoxia. COVID Positive. TECHNIQUE: Multiple CTA images of the chest were obtained after the intravenous administration of 120 ml Optiray 320. Coronal and sagittal MIPS were obtained from the axial data set and were submitted for review. All measurements were obtained according to NASCET criteria. A dose lowering technique w as utilized adhering to the principles of ALARA. COMPARISON: Chest radiograph of same day FINDINGS: CTA: The heart is mildly enlarged. No pericardial effusion. No thoracic aortic aneurysm or dissection. The re is patency of the imaged great vessels. Respiratory motion artifact limits the study. The pulmonar y artery is opacified to the level of the proximal subsegmental branches and demonstrates no filling defects to suggest thromboembolic disease. CT CHEST: Unremarkable thyroid. Prominent mildly enlarged mediastinal and hilar lymph nodes measure up to 12 mm in short axis. Trace pleural effusions. No pneumothorax. Moderate multilobar distribution of patchy groundglass and alveolar opacities. Central airways are patent. Hepatosplenomegaly with hepatic steatosis. Unremarkable soft tissues. The spinous processes at T8 and T9 or surgically absent. Postsurgical metallic density foci noted within the posterior aspect of the central canal and nearly the posterior elements at this level. IMPRESSION: 1. No pulmonary emboli. 2. Moderate multifocal groundglass and alveolar opacities throughout the bilateral lungs is compatibl e with multifocal pneumonia. 3. Mild mediastinal and hilar adenopathy, likely reactive. 4. Hepatosplenomegaly with hepatic steatosis. ACT 112: Negative or not required by law. The above report was generated using voice recognition software. It may contain grammatical, syntax o r spelling errors. Electronically signed by: Anant Catalan M.D. 09/14/2020 12:09 PM
--- NOTE | 2020-09-14 12:41 | History & Physical Report ---
Date of Service September 14, 2020 Assessment & Plan (1) Pneumonia due to 2019 novel coronavirus: Hypoxia to the 70s in the ED COVID + on 09/08 with random screening, sx started 09/10 Started on dexa and inhalers from the ED on 09/12, not hypoxic at that time Continue with dexa, start remdesivir Nebs Blood cx pending Lactic acid and procal WNL, will hold on abx for now Trop neg Ddimer elevated CXR and CTA with multifocal PNA, neg for PE (2) Hypokalemia: Replace and monitor (3) Hypomagnesemia: Replace and monitor (4) Hypophosphatemia: Replace and monitor (5) Anemia: 10.6 on admission, was 10.5 in ED on 09/12 Monitor (6) Diabetes: A1c pending Holding metformin due to IV contrast Continue glimeperide unless pt stops taking reliable PO SSI PRN (7) GERD (gastroesophageal reflux disease): continue home meds (8) Hypothyroid: continue home meds (9) Hypercholesterolemia: continue home meds (10) Mood disorder: continue home meds (11) Morbid obesity with BMI of 40.0-44.9, adult: (12) DVT prophylaxis: History of Present Illness Primary Care Provider: [facility] 39 y/o F c/o worsening SOB. Pt tested positive on 09/08 during a random screening. She started to have SOB and cough on 09/10. She was seen in the ED on 09/12 for worsening SOB and cough. She was maintaining her O2 sats at that time and d/c'd back to care home with dexamethasone. Pt has also been using an inhaler since that time. Over the last two days she has had worsening SOB to the point where if she moves at all she is SOB. Not SOB at rest. She was noted to be in the 80s at the care home and in the 70s in the ED today. She feels chest tightness with the SOB, but no srinivasa chest pain. She has not had much of an appetite the last few days due to nausea, but she does feel hungry now. No emesis. She has had diarrhea. Pt denies fever, abd pain, LE pain or swelling. Allergies Allergy/AdvReac Type Severity Reaction Status Date / Time cephalexin [From Keflex] Allergy Unknown Unknown Unverified 09/14/20 08:05 ketorolac [From Toradol] Allergy Unknown Unknown Unverified 09/14/20 08:05 latex Allergy Unknown Unknown Unverified 09/14/20 08:05 Penicillins Allergy Unknown Unknown Unverified 09/14/20 08:05 Home Medications Medication Instructions Recorded Confirmed Type albuterol sulfate 1 inh INHALATION QID PRN 09/12/20 09/14/20 History ascorbic acid (vitamin C) [Vitamin 1,000 mg PO DAILY 09/12/20 09/14/20 History C] baclofen 10 mg PO DAILY@11,16 09/12/20 09/14/20 History bumetanide [Bumex] 1 mg PO BID 09/12/20 09/14/20 History buspirone [BuSpar] 30 mg PO BID 09/12/20 09/14/20 History cholecalciferol (vitamin D3) 50 mcg PO DAILY 09/12/20 09/14/20 History [Vitamin D3] docusate sodium [Colace] 200 mg PO DAILY 09/12/20 09/14/20 History gabapentin 300 mg PO TID 09/12/20 09/14/20 History glimepiride 2 mg PO DAILY PRN 09/12/20 09/14/20 History levothyroxine 50 mcg PO DAILY 09/12/20 09/14/20 History metformin 1,000 mg PO BID 09/12/20 09/14/20 History methocarbamol 1,000 mg PO BID 09/12/20 09/14/20 History multivitamin 1 tab PO DAILY 09/12/20 09/14/20 History nortriptyline 50 mg PO HS 09/12/20 09/14/20 History omeprazole 40 mg PO DAILY 09/12/20 09/14/20 History oxcarbazepine 150 mg PO BID 09/12/20 09/14/20 History oxcarbazepine [Trileptal] 600 mg PO HS 09/12/20 09/14/20 History pantoprazole 40 mg PO BID 09/12/20 09/14/20 History prazosin 2 mg PO HS 09/12/20 09/14/20 History propranolol 40 mg PO TID 09/12/20 09/14/20 History quetiapine 400 mg PO BID 09/12/20 09/14/20 History sertraline 200 mg PO DAILY 09/12/20 09/14/20 History simvastatin 10 mg PO HS 09/12/20 09/14/20 History topiramate 100 mg PO BID 09/12/20 09/14/20 History trazodone 300 mg PO HS 09/12/20 09/14/20 History trolamine salicylate [Analgesic 1 applic TOPICAL BID PRN 09/12/20 09/14/20 History Creme] zinc sulfate 220 mg PO TID 09/12/20 09/14/20 History dexamethasone 6 mg PO DAILY 09/14/20 09/14/20 History Past Med/Surg History Medical History Diabetes GERD (gastroesophageal reflux disease) Hypercholesterolemia Hypothyroid Mood disorder Morbid obesity with BMI of 40.0-44.9, adult Family History (Updated 09/14/20 @ 12:49 by Jennifer Gloria DO) Grandmother Cerebral aneurysm Other Myocardial infarction Stroke Denies family history of Deep vein thrombosis Pulmonary embolism Social History (Updated 09/14/20 @ 12:50 by Jennifer Gloria DO) Smoking Status: Former smoker Number of Years Since Quit: 5; Hx Alcohol Use: No Hx Substance Use: No Current Living Situation: Other Current Living Situation Comment: care home Feels Safe at Home: Yes Review of Systems Review of Systems: Pertinent positives and negatives reviewed in HPI--all others negative Physical Exam Constitutional: WD/WN, vitals as above Eyes: normal visual cook by confrontation and + anicteric sclerae Neck: normal visual inspection and trachea midline Respiratory: normal respiratory effort; no respiratory distress Auscultation: + crackles; no wheezes Cardiovascular: Rate/Rhythm: regular rate and regular rhythm Gastrointestinal (Abdomen): Inspection/Auscultation: abdomen not distended Percussion/Palpation: abdomen soft; abdomen nontender Musculoskeletal: Head/Neck/Chest: normocephalic and head atraumatic negative for edema, peripheral pulses intact Skin: no rashes, warm and dry Neurologic: awake; not confused Speech / Cognition: normal speech Psychiatric: A+Ox3, euthymic affect Results & Data Results & Data ([facility]) Vital Signs (Past 12 Hours) Vital Signs Temp Pulse Resp BP Pulse Ox 09/14/20 12:30 90 31 H 130/85 96 09/14/20 12:07 91 H 31 H 134/67 95 09/14/20 11:30 88 28 H 108/51 L 95 09/14/20 11:13 91 H 23 123/61 92 09/14/20 10:04 38 C H 09/14/20 10:01 90 33 H 92 09/14/20 10:00 91 H 28 H 134/63 92 09/14/20 09:30 94 H 27 H 142/86 H 91 09/14/20 09:00 93 H 26 H 135/76 95 09/14/20 08:51 93 H 22 125/87 94 09/14/20 08:30 93 H 29 H 136/80 94 09/14/20 07:30 93 H 26 H 138/62 94 09/14/20 07:23 94 09/14/20 07:21 38.3 C H 94 H 20 175/91 H 79 L Diagnostic Findings CXR: worsening multifocal PNA CTA: multifocal PNA, neg for PE ECG Additional Comments: abn lead placement vs NH vs LVH, same as 09/12 Code Status & VTE Plan Code Status Full code VTE Prophylaxis Plan VTE Prophylaxis will be ordered: Yes PG Care Time/CCT Total # of Minutes Spent Total Time Spent with Patient: Total time spent is greater than 50% in coordination of care (as documented) at patient's floor/unit and/or counseling patient: Coding Level of Care Code 04683 Initial Inpt Care Lvl 3 Diagnoses Pneumonia due to 2019 novel coronavirus U07.1; J12.82 Hypokalemia E87.6 Hypomagnesemia E83.42 Hypophosphatemia E83.39 Anemia D64.9 Diabetes E11.9 GERD (gastroesophageal reflux disease) K21.9 Hypothyroid E03.9 Hypercholesterolemia E78.00 Mood disorder F39 Morbid obesity with BMI of 40.0-44.9, adult E66.01; Z68.41 DVT prophylaxis Z29.9
[2020-09-14] MEDS ORDERED: GLUCOSE 40% GEL 15 GM TUBE PO PRN (13:54)
[2020-09-14] MEDS ORDERED: MAGNESIUM HYDROXIDE SUSP 30 ML UDC PO PRN (13:54)
[2020-09-14] MEDS ORDERED: ONDANSETRON INJ 2 MG/ML 2 ML VIAL IV PRN (13:54)
[2020-09-14] MEDS ORDERED: GLUCAGON FOR INJ 1 MG VIAL SQ PRN (13:54)
[2020-09-14] MEDS ORDERED: GLIMEPIRIDE 2 MG TAB PO PRN (13:54)
[2020-09-14] MEDS ORDERED: ALBUTEROL HFA 8 GM INHALER INH PRN (13:54)
[2020-09-14] MEDS ORDERED: GLUCOSE 10 TABS/TUBE PO PRN (13:54)
[2020-09-14] MEDS ORDERED: DEXTROSE 50% 50 ML SYRINGE IV PRN (13:54)
[2020-09-14] MEDS ORDERED: TROLAMINE SALICYLATE 10% CRM 255 APPLN/85 GM TUBE EXT PRN (13:54)
[2020-09-14] MEDS ORDERED: CARBOHYDRATES FOR HYPOGLYCEMIA PO PRN (13:54)
[2020-09-14] MEDS ORDERED: REMDESIVIR 200 MG in SODIUM CHLORIDE 0.9% 210 ML IV ONE (14:30)
[2020-09-14] MEDS: ALBUT/IPRATROP 3MG/0.5MG NEB 3 ML VIAL NEB SCH ×2 (15:37→19:06)
[2020-09-14] MEDS: HEPARIN SOD 5,000 UNIT/0.5 ML VIAL SQ SCH ×2 (15:39→21:37)
[2020-09-14] MEDS: GABAPENTIN 300 MG CAP PO SCH ×2 (15:39→22:57)
[2020-09-14] MEDS: PROPRANOLOL HCL 20 MG TAB PO SCH ×2 (15:40→21:29)
[2020-09-14] MEDS: OXcarbazepine 150 MG TABLET PO SCH ×2 (15:41→21:29)
[2020-09-14] MEDS: ACETAMINOPHEN 325 MG TAB PO PRN (17:50)
[2020-09-14] MEDS: SODIUM CHLORIDE 0.9% 10ML FLUSH IV SCH (17:53)
[2020-09-14] MEDS: INSULIN ASPART 100 UNITS/ML 3 ML PEN SC SCH ×2 (18:19→21:38)
[2020-09-14] MEDS: BACLOFEN 10 MG TAB PO SCH (19:40)
[2020-09-14] MEDS: BUMETANIDE 1 MG TAB PO SCH (19:40)
[2020-09-14] MEDS ORDERED: PRAZOSIN HCL 1 MG CAP PO SCH (21:00)
[2020-09-14] MEDS ORDERED: NORTRIPTYLINE HCL 25 MG CAP PO SCH (21:00)
[2020-09-14] MEDS ORDERED: traZODone HCL 100 MG TAB PO SCH (21:00)
[2020-09-14] MEDS ORDERED: IBUPROFEN 200 MG TAB PO PRN (21:08)
[2020-09-14 21:21] LABS: Appearance Urine Clear (Clear); Bacteria Urine Automated Negative (Negative); Bilirubin Urine Negative (Negative); Blood Urine Negative (Negative); Cast Urine Automated 0 /lpf (0-5); Color Urine Yellow; Glucose Urine UA 3+ (Negative); Ketones Urine 1+ (Negative); Leukocyte Esterase Urine Negative (Negative); Nitrite Urine Negative (Negative); RBC Urine Automated 0-4 /hpf (0-4); Specific Gravity Urine 1.025 (1.000-1.030); Urobilinogen Urine Negative (Negative); pH Urine 7.5 (4.5-7.5)
[2020-09-14] MEDS: PANTOprazole 40 MG TAB PO SCH (21:28)
[2020-09-14] MEDS: QUEtiapine FUMARATE 200 MG TAB PO SCH (21:32)
[2020-09-14] MEDS: ZINC SULFATE 220 MG CAPSULE PO SCH (21:32)
[2020-09-14] MEDS: SIMVASTATIN 10 MG TAB PO SCH (21:33)
[2020-09-14] MEDS: TOPIRAMATE 100 MG TAB PO SCH (21:34)
[2020-09-14 22:05] LABS: Protein Urine 1+ (Negative)
[2020-09-14] MEDS: busPIRone 15 MG TAB PO SCH (22:57)
[2020-09-14] MEDS: METHOCARBAMOL 500 MG TABLET PO SCH (22:58)
[2020-09-15] MEDS: LEVOTHYROXINE SODIUM 50 MCG TABLET PO SCH (06:10)
[2020-09-15] MEDS: HEPARIN SOD 5,000 UNIT/0.5 ML VIAL SQ SCH (06:11)
[2020-09-15] MEDS: ALBUT/IPRATROP 3MG/0.5MG NEB 3 ML VIAL NEB SCH ×4 (06:27→19:50)
[2020-09-15 07:15] LABS: Basophils # (auto) 0.03 K/uL (0-0.2); Basophils % (auto) 0.5 %; Eosinophils # (auto) 0.01 K/uL (0-0.5); Eosinophils % (auto) 0.2 %; Hematocrit (blood only) 32.8 % (37-47); Hemoglobin 10.7 g/dL (12.0-16.0); Immature Granulocytes # (auto) 0.12 K/uL (0.00-0.02); Immature Granulocytes % (auto) 1.9 %; Lymphocytes # (auto) 1.57 K/uL (1.2-3.4); Lymphocytes % (auto) 24.9 %; Mean Corpuscular Hemoglobin 27.9 pg (25-34); Mean Corpuscular Hgb Conc 32.6 g/dL (32-36); Mean Corpuscular Volume 85.6 fL (80-100); Mean Platelet Volume 10.6 fL (7.4-10.4); Monocytes # (auto) 0.17 K/uL (0.11-0.59); Monocytes % (auto) 2.7 %; Neutrophils # (auto) 4.41 K/uL (1.4-6.5); Neutrophils % (auto) 69.8 %; Platelet Count 237 K/uL (130-400); RDW Coefficient of Variation 14.9 % (11.5-14.5); RDW Standard Deviation 46.2 fL (36.4-46.3); Red Blood Count 3.83 M/uL (4.2-5.4); White Blood Count 6.31 K/uL (4.8-10.8)
[2020-09-15 07:29] LABS: Estimated Average Glucose 212 mg/dl
[2020-09-15 07:44] LABS: BUN Creatinine Ratio 13.7 (10-20); Calcium 9.1 mg/dl (8.5-10.1); Est GFR (Non-African American) 88.8; Magnesium 1.8 mg/dl (1.8-2.4); Potassium 3.2 mmol/L (3.5-5.1)
[2020-09-15 07:54] LABS: Phosphorus 3.7 mg/dl (2.5-4.9)
--- NOTE | 2020-09-15 08:02 | Hospitalist Progress Note ---
Date of Service September 15, 2020 Assessment & Plan (1) Pneumonia due to 2019 novel coronavirus: Hypoxia to the 70s in the ED COVID + on 09/08 with random screening, sx started 09/10 Started on dexa and inhalers from the ED on 09/12, not hypoxic at that time Continue with dexamethasone, start remdesivir progressive support required with NIPPV, despite this progressive tachypnea, given morbid obesity concern for decompensation will transfer to ICU to consider early intubation Blood cx currently negative Lactic acid and procal WNL, not on antibiotics Trop neg Ddimer elevated CTA 09/14/20 IMPRESSION: 1. No pulmonary emboli. 2. Moderate multifocal ground glass and alveolar opacities throughout the bilateral lungs is compatible with multifocal pneumonia. 3. Mild mediastinal and hilar adenopathy, likely reactive. 4. Hepatosplenomegaly with hepatic steatosis. (2) Anemia: 10.6 on admission, was 10.5 in ED on 09/12 Monitor (3) Diabetes: A1c pending Holding metformin due to IV contrast significant hyperglycemia due to dexamethasone, now with glycemic pharmacy control and lynne will need basal boluls coverage (4) GERD (gastroesophageal reflux disease): protonix bid (5) Hypothyroid: synthroid 50 mcg a day (6) Hypercholesterolemia: statins have been shown to be helpful, if intubated will give via ng or og tube (7) Mood disorder: her medications may have respiratory supression, will stop all but zoloft at reduced doses and tripeptal (8) Morbid obesity with BMI of 40.0-44.9, adult: by her medications appears to have LBP issues with muscle relaxants, will hold these due to concern for respiratory suppression (9) DVT prophylaxis: lovenox (10) HTN (hypertension): prazosin and propranolol on hold if rebound tachycardia will use prn metoprolol Admission and Anticipated Discharge Date Admission Date: September 14, 2020 Subjective pt was visited on two occasions, in the am she was less responsive than in the afternoon, later in the afternoon Dr Sheth recommended transfer to ICu for impending respiratory failure as she was tachypneic on Bipap with high oxygen requirements and the Lucina score was worsening to suggest impending intubation Review of Systems Review of Systems: Review of systems are challenging to obtain due to her tachypneic state and significant distress Physical Exam Physical Exam: The patient appeared in moderate to severe distress she is morbidly obese she is lying prone on BiPAP Vital signs as documented. Chronic increasing oxygen demand she is markedly tachypneic Head exam is normocephalic atraumatic no scleral icterus Lungs are extremely poor air movement Cardiac exam, Rhythm is regular.. No murmurs, Abdominal exam reveals normal bowel sounds, soft Extremities are nonedematous and both pedal pulses are present Neurologic exam is alert and responds to commands in the afternoon Skin is without bruises or rashes Results & Data Results & Data ([facility]) Vital Signs (Past 12 Hours) Vital Signs Temp Pulse Pulse Resp BP Pulse Ox 09/15/20 07:43 102.6 F H 91 H 22 150/84 H 97 09/15/20 07:00 91 H 36 H 93 09/15/20 06:30 88 28 H 88 L 09/15/20 04:00 98.8 F 77 20 120/61 95 09/14/20 23:59 94 H 09/14/20 23:55 99.7 F H 82 22 90/46 L 92 PG Care Time/CCT Total # of Minutes Spent Total Time Spent with Patient: Total time spent is greater than 50% in coordination of care (as documented) at patient's floor/unit and/or counseling patient: Coding Level of Care Code 34447 Subseq Hosp Care Lvl 3 Diagnoses Pneumonia due to 2019 novel coronavirus U07.1; J12.82 Anemia D64.9 Diabetes E11.9 GERD (gastroesophageal reflux disease) K21.9 Hypothyroid E03.9 Hypercholesterolemia E78.00 Mood disorder F39 Morbid obesity with BMI of 40.0-44.9, adult E66.01; Z68.41 DVT prophylaxis Z29.9 HTN (hypertension) I10
[2020-09-15] MEDS: BUMETANIDE 1 MG TAB PO SCH (08:05)
[2020-09-15] MEDS: METHOCARBAMOL 500 MG TABLET PO SCH (08:06)
[2020-09-15] MEDS: ZINC SULFATE 220 MG CAPSULE PO SCH ×2 (08:06→15:07)
[2020-09-15] MEDS: TOPIRAMATE 100 MG TAB PO SCH (08:06)
[2020-09-15] MEDS: GABAPENTIN 300 MG CAP PO SCH ×2 (08:06→15:07)
[2020-09-15] MEDS: busPIRone 15 MG TAB PO SCH ×2 (08:06→20:32)
[2020-09-15] MEDS: PANTOprazole 40 MG TAB PO SCH ×2 (08:07→20:31)
[2020-09-15] MEDS: QUEtiapine FUMARATE 200 MG TAB PO SCH (08:08)
[2020-09-15] MEDS: PROPRANOLOL HCL 20 MG TAB PO SCH (08:09)
[2020-09-15] MEDS: DEXAMETHASONE SOD PHOSPHATE 6 MG in SYRINGE 0 ML IV SCH (08:09)
[2020-09-15] MEDS: OXcarbazepine 150 MG TABLET PO SCH ×3 (08:09→20:33)
[2020-09-15] MEDS: DOCUSATE SODIUM 100 MG CAP PO SCH (08:10)
[2020-09-15] MEDS ORDERED: LORazepam 1 MG/2 ML VIAL IV PRN (08:15)
[2020-09-15] MEDS: INSULIN ASPART 100 UNITS/ML 3 ML PEN SC SCH ×4 (08:25→23:30)
[2020-09-15] MEDS ORDERED: PANTOprazole 40 MG TAB PO SCH (09:00)
[2020-09-15] MEDS ORDERED: ASCORBIC ACID 500 MG TAB PO SCH (09:00)
[2020-09-15] MEDS ORDERED: MULTIVITAMIN TAB PO SCH (09:00)
[2020-09-15] MEDS ORDERED: SERTRALINE HCL 100 MG TABLET PO SCH (09:00)
[2020-09-15] MEDS ORDERED: POTASSIUM CHLORIDE CRTAB 20 MEQ TABCR PO SCH (09:00)
[2020-09-15] MEDS ORDERED: CHOLECALCIFEROL 1,000 UNITS 25 MCG TAB PO SCH (09:00)
[2020-09-15] MEDS: ENOXAPARIN INJ 60 MG/0.6 ML SYR SQ SCH ×2 (11:20→20:29)
[2020-09-15] MEDS: REMDESIVIR 100 MG in SODIUM CHLORIDE 0.9% 230 ML IV SCH (11:20)
[2020-09-15] MEDS: BACLOFEN 10 MG TAB PO SCH (11:21)
[2020-09-15] MEDS: SODIUM CHLORIDE 0.9% 10ML FLUSH IV SCH (12:15)
[2020-09-15] MEDS ORDERED: BUMETANIDE 1 MG in SYRINGE 0 ML IV ONE (13:00)
[2020-09-15] MEDS ORDERED: PHARMACY GLYCEMIC MGMT CONSULT PRN (13:25)
[2020-09-15] MEDS ORDERED: INSULIN GLARGINE SOLOSTAR 100 UNITS/ML 3 ML PEN SC ONE ×2 (14:15→21:00)
--- NOTE | 2020-09-15 14:58 | Pharmacy Report ---
Pharmacy Glycemic Short Note 2 - Date of Service September 15, 2020 - Glycemic Short BSG Results (Last 24 hours): 09/14/20 09/14/20 09/14/20 16:47 16:49 20:28 Glucose POC Glucose 357 H* 370 H* 189 H 09/15/20 09/15/20 09/15/20 06:09 07:45 11:50 Glucose 150 H POC Glucose 228 H 310 H* 09/15/20 11:51 Glucose POC Glucose 314 H* OUTPATIENT ANTIDIABETIC REGIMEN: * glimeperide 2mg, metformin 1000 mg BID * A1c 9.0% 09/15 ASSESSMENT: * KM is admitted with COVID-19 infection, currently being treated with dexamethasone 6 mg IV daily and remdesivir * Patient has had episodes of hyperglycemia, likely related to steroid use + stress from infection, will utilize NPH with steroid administration * Will begin lantus with weight based stress of 2 with additional dose for tonight up to full day of weight based stress of 3 (adjusted body weight) * Will tighten novolog parameters to adjusted weight based stress of 3 PLAN FOR INPATIENT GLYCEMIC CONTROL: * Hold outpatient oral diabetes medications * Basal insulin * Lantus 28 units x1, scale for 0-12 units HS x 1, further dosing to be determined * Bolus insulin * NovoLog per scale ACHS or Q6hrs while NPO * Goal Range: Low 110 mg/dL - High 140 mg/dL * Correction Factor: 20 mg/dL/unit * Nutritional / Prandial insulin per carb ratio of 1 unit per 7 grams CHO consumed
[2020-09-15] MEDS ORDERED: INSULIN ASPART 100 UNITS/ML 3 ML PEN SC ONE (15:45)
[2020-09-15] MEDS ORDERED: ETOMIDATE 2 MG/ML 20 ML VIAL IV ONE ×2 (16:04→17:46)
[2020-09-15] MEDS ORDERED: PROPOFOL IV EMULSION 10 MG/ML 100 ML VIAL IV ONE ×2 (16:04→17:44)
[2020-09-15] MEDS ORDERED: ROCURONIUM BROMIDE 10 MG/ML 5 ML VIAL IV ONE ×2 (16:04→17:47)
[2020-09-15] MEDS ORDERED: fentaNYL citrate 100 MCG/2 ML VIAL ONE (16:29)
--- NOTE | 2020-09-15 17:42 | Critical Care Consultation ---
Date of Consultation September 15, 2020 Assessment & Plan (1) COVID-19: Neurologic: Analgesics and sedation: We will initiate propofol and fentanyl drips for pain control analgesia. Delirium precautions. Notably, she was also previously on baclofen 10 mg p.o. daily, BuSpar 30 p.o. twice daily, quetiapine 400 mg p.o. twice daily, propranolol 40 mg 3 times daily, prazosin 2 mg nightly, nortriptyline 50 mg nightly, trazodone 300 mg nightly, Zoloft 200 mg daily, gabapentin 300 mg p.o. 3 times daily, methocarbamol 1000 mg p.o. twice daily and Topamax 100 mg p.o. twice daily. We will start back gabapentin at reduced doses of 100 mg 3 times daily, Zoloft at 50 mg daily and quetiapine at 100 mg twice a day. I am going to hold her baclofen, BuSpar, propranolol, Trileptal, prazosin, methocarbamol and nortriptyline. Sedation will likely prove to be very difficult in this patient. We will have our pharmacist confirm these medications from the retirement. Pulmonary: Intubated on 09/15/2020. Continue lung protective ventilation strategy. FiO2 is down to 50%. PEEP of 16. Tidal volume of 370 mL/kg. Plateau pressure was 29 cm H2O. Chest x-ray reviewed with bilateral infiltrates. CT chest with contrast reviewed yesterday which demonstrated patchy multifocal groundglass opacities. No evidence of pulmonary embolism was seen. Continue Decadron 6 mg IV daily for dysregulated inflammatory response. Once her glucose is improved we will consider increasing Decadron to 20 mg for 5 days and 10 mg for 5 days for the DEXA ARDS trial. Cardiovascular: No issues currently. She is mildly hypertensive due to agitation while being on the ventilator. This will be better controlled once sedation kicks in. Continue simvastatin for hyperlipidemia. We will check an EKG to evaluate QTC. QTC yesterday was 482. Gastrointestinal: We are having difficulty passing a feeding tube through her mouth or nose. Will reattempt when she is better sedated. Will initiate tube feeds tomorrow. Continue Protonix. Renal: No issues presently. We will hold on the bumetanide pushes that were given earlier. Infectious disease: Procalcitonin within normal limits. Blood cultures negative to date. No indication for antibiotics at this time. Will obtain sputum cultures. Hematologic: No issues currently. Continue DVT prophylaxis with Lovenox. Endocrine: Initiating insulin drip given her hyperglycemia. She does have a history of diabetes mellitus. VTE prophylaxis: Lovenox as above CODE STATUS: Full code Family at bedside: Not available due to the COVID-19 pandemic and given her incarceration history Disposition: Remain in the ICU Had numerous discussions with the respiratory therapist, hospitalist and nursing team. I have personally spent 91 minutes of critical care time in the direct management of this patient. This is a life/limb threatening event. This includes time spent evaluating patient, direct bedside care, chart review, placing orders, interpretation of diagnostic studies, discussion with consultants, patient, and family members, as well as other required patient management activities. This time is exclusive of all separately billable procedures, and teaching time and separate from and in addition to any other critical care service time. Thank you for allowing us to participate in the care of this patient. (2) Hypoxia: (3) GERD (gastroesophageal reflux disease): (4) Mood disorder: (5) Morbid obesity with BMI of 40.0-44.9, adult: (6) Hyperglycemia: (7) Abnormal CT scan, chest: History of Present Illness Reason for Consultation: Covid pneumonia and hypoxemic respiratory failure Requesting Physician: Dr. Bonner Attending Physician: Oli Bonner MD History of Present Illness 39-year-old female with a past medical history of mood disorder, hypercholesterolemia, morbid obesity, incarceration for the last 5 years, diabetes mellitus, GERD and previous tobacco abuse disorder presenting to the hospital on 09/14/2020 due to shortness of breath and hypoxemic respiratory failure. She was found to be positive on 09/08 on random screening at the shelter. She notes that this past Saturday she had increasing shortness of breath. She was actually seen in the emergency department on 09/13. She was given Decadron and sent back to the shelter. Patient notes that she has been coughing and has some mild substernal chest pain. She has felt slightly feverish. She has had periods of lethargy during this hospitalization which was thought to be sedation from her chronic home medications. She has been requiring high amounts of support from BiPAP. At the time of my exam, she was on 50% FiO2 and 15/8 on BiPAP. She was very tachypneic with respiratory rates in the high 30s to mid 40s. She was tripoding at times. I had a long discussion with the patient regarding intubation and mechanical ventilation. She consented to proceeding with intubation and mechanical ventilation. Allergies Allergy/AdvReac Type Severity Reaction Status Date / Time cephalexin [From Keflex] Allergy Severe Unknown Verified 09/14/20 17:54 ketorolac [From Toradol] Allergy Severe Unknown Verified 09/14/20 17:54 Penicillins Allergy Severe Unknown Verified 09/14/20 17:54 latex Allergy Mild Unknown Verified 09/14/20 17:54 Home Medications Medication Instructions Recorded Confirmed Type albuterol sulfate 1 inh INHALATION QID PRN 09/12/20 09/14/20 History ascorbic acid (vitamin C) [Vitamin 1,000 mg PO DAILY 09/12/20 09/14/20 History C] baclofen 10 mg PO DAILY@11,16 09/12/20 09/14/20 History bumetanide [Bumex] 1 mg PO BID 09/12/20 09/14/20 History buspirone [BuSpar] 30 mg PO BID 09/12/20 09/14/20 History cholecalciferol (vitamin D3) 50 mcg PO DAILY 09/12/20 09/14/20 History [Vitamin D3] docusate sodium [Colace] 200 mg PO DAILY 09/12/20 09/14/20 History gabapentin 300 mg PO TID 09/12/20 09/14/20 History glimepiride 2 mg PO DAILY PRN 09/12/20 09/14/20 History levothyroxine 50 mcg PO DAILY 09/12/20 09/14/20 History metformin 1,000 mg PO BID 09/12/20 09/14/20 History methocarbamol 1,000 mg PO BID 09/12/20 09/14/20 History multivitamin 1 tab PO DAILY 09/12/20 09/14/20 History nortriptyline 50 mg PO HS 09/12/20 09/14/20 History omeprazole 40 mg PO DAILY 09/12/20 09/14/20 History oxcarbazepine 150 mg PO BID 09/12/20 09/14/20 History oxcarbazepine [Trileptal] 600 mg PO HS 09/12/20 09/14/20 History pantoprazole 40 mg PO BID 09/12/20 09/14/20 History prazosin 2 mg PO HS 09/12/20 09/14/20 History propranolol 40 mg PO TID 09/12/20 09/14/20 History quetiapine 400 mg PO BID 09/12/20 09/14/20 History sertraline 200 mg PO DAILY 09/12/20 09/14/20 History simvastatin 10 mg PO HS 09/12/20 09/14/20 History topiramate 100 mg PO BID 09/12/20 09/14/20 History trazodone 300 mg PO HS 09/12/20 09/14/20 History trolamine salicylate [Analgesic 1 applic TOPICAL BID PRN 09/12/20 09/14/20 History Creme] zinc sulfate 220 mg PO TID 09/12/20 09/14/20 History dexamethasone 6 mg PO DAILY 09/14/20 09/14/20 History Patient History Medical History COVID-19 Diabetes GERD (gastroesophageal reflux disease) Hypercholesterolemia Hypothyroid Mood disorder Morbid obesity with BMI of 40.0-44.9, adult Family History Grandmother Cerebral aneurysm Other Myocardial infarction Stroke Denies family history of Deep vein thrombosis Pulmonary embolism Social History Smoking Status: Former smoker Number of Years Since Quit: 5; Hx Alcohol Use: No Hx Substance Use: No Preferred Language: Sinhala Communication Ability: Effective Exchange Mechanic Required: No Beliefs That Will Affect Care: None Current Living Situation: Other Current Living Situation Comment: Longterm Other Information That Helps Us Care for You: No Feels Safe at Home: No Assistive Devices: Oxygen - Continuous Review of Systems Review of Systems: All systems reviewed & are unremarkable except as noted in HPI & below Physical Exam Constitutional: Morbidly obese appearing female in severe distress. Eyes: PERRL, conjunctivae normal, anicteric sclerae ENMT: external ear and nose normal, oropharynx normal Neck: normal visual inspection Respiratory: + cough and + tachypneic Decreased air entry bilaterally. Cardiovascular: Rate/Rhythm: regular rhythm and + tachycardic Heart Sounds: no murmur Extremities: no edema Gastrointestinal (Abdomen): normal bowel sounds, soft, nontender, no hepatosplenomegaly Musculoskeletal: no cyanosis or clubbing, extremities motor strength 5/5 Skin: Numerous tattoos on her body. Neurologic: PERRL, EOMI, accommodation nl, no face palsy, no dysarthria Psychiatric: A+Ox3, euthymic affect Results & Data Results & Data ([facility]) Vital Signs (Past 12 Hours) Vital Signs Temp Pulse Pulse Resp BP Pulse Ox Pulse Ox 09/15/20 17:23 85 25 H 97 09/15/20 15:30 87 87 38 H 91 09/15/20 14:07 159/88 H 09/15/20 14:00 96 09/15/20 11:49 97.9 F 85 30 H 118/65 91 09/15/20 11:16 83 83 38 H 91 09/15/20 09:52 98.8 F 09/15/20 07:56 90 09/15/20 07:52 91 H 36 H 92 09/15/20 07:43 102.6 F H 91 H 22 150/84 H 97 09/15/20 07:00 91 H 36 H 93 09/15/20 06:30 88 28 H 88 L I reviewed her vital signs, labs and imaging Coding Level of Care Code 72791 Prolonged Care (int'l) Diagnoses COVID-19 U07.1 Hypoxia R09.02 GERD (gastroesophageal reflux disease) K21.9 Mood disorder F39 Morbid obesity with BMI of 40.0-44.9, adult E66.01; Z68.[address] scan, chest R93.89 Time Spent (min) 91
[2020-09-15] MEDS ORDERED: STAT IV Infusion **Titration per Protocol STA ×3 (17:46→18:09)
--- NOTE | 2020-09-15 17:53 | Procedure Note ---
Procedure Note Date of Service September 15, 2020 Note INTUBATION PROCEDURE NOTE: Dr. Magdy Briggs A time-out was completed verifying correct patient, procedure, site, positioning. Patient was evaluated and required intubation for acute hypoxemic respiratory failure. Sedative agent used: 30 mg of etomidate Paralysis agent used: 50 mg of rocuronium Verbal consent was obtained from the patient due to the COVID-19 pandemic in an effort to reduce viral transmission. Patient was aware of the risks and benefits. Number of attempts: 2 The patient was prepared in the appropriate fashion. Sedation was achieved utilizing etomidate and rocuronium as noted above. The patient was easily ventilated using [id number] to achieve adequate oxygenation. A 7 Welsh endotracheal tube was placed under video laryngoscope guidance to 22 cm at the lip. The stylette was removed and balloon was inflated with 10mL of air. Appropriate Colorimetric change was appreciated. Bilateral breath sounds were heard without air sounds in the abdomen. The initial intubation attempt was aborted due to patient's severe agitation. After giving rocuronium administration, the patient was bagged to 85% and the endotracheal tube was inserted without issue. Saturations were in the mid 90s after intubation. Post Intubation Chest X-ray ordered Patient tolerated the procedure well and there were no immediate complications. Coding CPT Codes Resuscitation - Resuscitation: 10773 Endotracheal Intubation, emergency ([id number]) [facility] Procedure Codes (Charges) Resuscitation Resuscitation: 12764 Endotracheal Intubation, emergency
[2020-09-15] MEDS ORDERED: INSULIN PROTOCOL GOAL RANGE ONE (18:02)
[2020-09-15] MEDS: PROPOFOL BOLUS FROM BAG IV PRN ×2 (18:03→19:30)
[2020-09-15] MEDS: propofoL 1,000 MG/100 ML VIAL IV SCH ×2 (18:03→21:15)
[2020-09-15] MEDS ORDERED: fentaNYL citrate 100 MCG/2 ML VIAL IV STA (18:06)
[2020-09-15] MEDS ORDERED: PHARMACY GLYCEMIC MGMT CONSULT STA (18:06)
[2020-09-15] MEDS ORDERED: fentaNYL DRIP 1,250 MCG/250 ML BAG IV SCH (18:06)
--- NOTE | 2020-09-15 18:08 | XRay Report ---
XR chest 1V portable CLINICAL HISTORY: Respiratory failure COMPARISON STUDY: 09/14/2020 FINDINGS: There is been interval insertion of an endotracheal tube positioned approximately 5 cm abov e the elias. The cardiac and mediastinal contours remain stable. There are multifocal pulmonary airs pace opacities stable to slightly improved when compared the prior study. There is no pneumothorax. T here are no large pleural effusions[. Spinal electrodes are again evident IMPRESSION: 1. Multifocal pulmonary airspace opacities consistent with a multifocal pneumonia 2. Interval placement of an endotracheal tube approximately 5 cm above the elias ACT 112: Negative or not required by law. Electronically signed by: Neftali Middleton M.D. 09/15/2020 6:07 PM
[2020-09-15] MEDS: fentaNYL DRIP 1,250 MCG/250 ML BAG IV SCH (18:43)
[2020-09-15] MEDS ORDERED: NovoLIN-R BOLUS FROM BAG IV ONE (19:00)
[2020-09-15] MEDS: INSULIN REGULAR 250 UNITS in SODIUM CHLORIDE 0.9% 247.5 ML IV SCH (19:20)
[2020-09-15] MEDS: GABAPENTIN 100 MG CAP PO SCH (20:30)
[2020-09-15] MEDS: QUEtiapine FUMARATE 100 MG TABLET PO SCH (20:31)
[2020-09-15] MEDS: SIMVASTATIN 10 MG TAB PO SCH (20:33)
--- NOTE | 2020-09-15 20:44 | XRay Report ---
XR KUB/Abdomen 1 view CLINICAL HISTORY: OG tube insertion COMPARISON STUDY: Chest x-ray dated 09/07/2020 FINDINGS: A single view centered on the hemidiaphragms is provided for interpretation. The recently p laced orogastric tube is positioned within the stomach. There are bilateral pulmonary airspace opacit ies. There is a spinal stimulator. Postsurgical changes are present within the lumbar spine. IMPRESSION: The orogastric tube is positioned within the stomach. ACT 112: Negative or not required by law. Electronically signed by: Neftali Middleton M.D. 09/15/2020 8:43 PM
[2020-09-16] MEDS ORDERED: INSULIN ASPART 100 UNITS/ML 3 ML PEN SC SCH
[2020-09-16] MEDS: propofoL 1,000 MG/100 ML VIAL IV SCH ×8 (00:20→22:51)
[2020-09-16] MEDS: INSULIN ASPART 100 UNITS/ML 3 ML PEN SC SCH ×4 (04:12→19:57)
[2020-09-16] MEDS: LEVOTHYROXINE SODIUM 50 MCG TABLET PO SCH (05:29)
[2020-09-16 05:34] LABS: Basophils # (auto) 0.02 K/uL (0-0.2); Basophils % (auto) 0.3 %; Eosinophils # (auto) 0.02 K/uL (0-0.5); Eosinophils % (auto) 0.3 %; Hematocrit (blood only) 32.1 % (37-47); Hemoglobin 10.4 g/dL (12.0-16.0); Immature Granulocytes # (auto) 0.21 K/uL (0.00-0.02); Immature Granulocytes % (auto) 3.7 %; Lymphocytes # (auto) 1.51 K/uL (1.2-3.4); Lymphocytes % (auto) 26.3 %; Mean Corpuscular Hemoglobin 27.2 pg (25-34); Mean Corpuscular Hgb Conc 32.4 g/dL (32-36); Monocytes % (auto) 3.5 %; Neutrophils # (auto) 3.78 K/uL (1.4-6.5); Neutrophils % (auto) 65.9 %; Platelet Count 247 K/uL (130-400); RDW Coefficient of Variation 14.8 % (11.5-14.5); RDW Standard Deviation 45.5 fL (36.4-46.3); Red Blood Count 3.82 M/uL (4.2-5.4); White Blood Count 5.74 K/uL (4.8-10.8)
[2020-09-16 06:20] LABS: Albumin Globulin Ratio 0.6 (0.9-2); Albumin Level 2.7 gm/dl (3.4-5.0); BUN Creatinine Ratio 26.8 (10-20); Bilirubin,Total 0.3 mg/dl (0.2-1); Calcium 8.4 mg/dl (8.5-10.1); Creatinine Clr Calc Pharmacy 139.1 ml/min; Est GFR (African American) 127.1; Est GFR (Non-African American) 109.7; Globulin 4.8 gm/dl (2.5-4.0); Magnesium 2.1 mg/dl (1.8-2.4); Phosphorus 3.3 mg/dl (2.5-4.9); Potassium 2.8 mmol/L (3.5-5.1); Total Protein 7.5 gm/dl (6.4-8.2)
[2020-09-16] MEDS: fentaNYL DRIP 1,250 MCG/250 ML BAG IV SCH ×2 (06:35→20:21)
[2020-09-16] MEDS ORDERED: POTASSIUM CHLORIDE 20 MEQ/15 ML UDC PO STA ×2 (06:43→15:11)
[2020-09-16] MEDS: POTASSIUM CHLORIDE / WTR 10 MEQ/100 ML PLCT IV SCH ×4 (07:39→10:32)
[2020-09-16] MEDS: ALBUT/IPRATROP 3MG/0.5MG NEB 3 ML VIAL NEB SCH ×2 (07:50→10:43)
[2020-09-16] MEDS: DEXAMETHASONE SOD PHOSPHATE 6 MG in SYRINGE 0 ML IV SCH (08:38)
--- NOTE | 2020-09-16 08:38 | XRay Report ---
XR chest 1V portable CLINICAL HISTORY: Respiratory failure COMPARISON STUDY: 09/15/2020 FINDINGS: There is an endotracheal tube approximately 3.5 cm above the elias. There is an enteric tu be which passes into the stomach. Spinal electrodes are again visualized. The cardiac and mediastinal contours remain stable. There are subtle bilateral pulmonary airspace opacities.[ IMPRESSION: 1. Subtle bilateral pulmonary airspace opacities consistent with a multifocal pneumonia. 2. Satisfactory positioning of the lines and tubes. ACT 112: Negative or not required by law. Electronically signed by: Neftali Middleton M.D. 09/16/2020 8:37 AM
[2020-09-16] MEDS: QUEtiapine FUMARATE 100 MG TABLET PO SCH ×2 (08:39→20:03)
[2020-09-16] MEDS: SERTRALINE HCL 50 MG TABLET PO SCH (08:39)
[2020-09-16] MEDS: ENOXAPARIN INJ 60 MG/0.6 ML SYR SQ SCH ×2 (08:39→19:58)
[2020-09-16] MEDS: busPIRone 15 MG TAB PO SCH (08:40)
[2020-09-16] MEDS: DOCUSATE SODIUM 100 MG CAP PO SCH ×2 (08:40→10:52)
[2020-09-16] MEDS: OXcarbazepine 150 MG TABLET PO SCH (08:47)
[2020-09-16] MEDS ORDERED: BUMETANIDE 1 MG in SYRINGE 0 ML IV SCH (09:00)
[2020-09-16] MEDS ORDERED: SERTRALINE HCL 100 MG TABLET PO SCH (09:00)
[2020-09-16] MEDS: FAMOTIDINE 20 MG in SYRINGE 3 ML IV SCH ×2 (09:17→20:04)
[2020-09-16] MEDS ORDERED: INSULIN GLARGINE SOLOSTAR 100 UNITS/ML 3 ML PEN SC SCH ×2 (10:30→18:00)
[2020-09-16 10:31] LABS: iSTAT Allen Test Pass; iSTAT Arterial Blood Gas HCO3 28 meg/L (19-24); iSTAT Arterial Blood Gas pCO2 43 mmHg (35-46); iSTAT Arterial Blood Gas pH 7.42 (7.35-7.45); iSTAT Arterial Blood Gas pO2 59 mmHg (80-95); iSTAT Carbon Dioxide 29 mmol/L (24-31); iSTAT FiO2 35 %; iSTAT Site L Radial
[2020-09-16] MEDS: BACLOFEN 10 MG TAB PO SCH (10:31)
[2020-09-16] MEDS: GABAPENTIN 100 MG CAP PO SCH ×3 (10:31→20:03)
[2020-09-16 11:04] LABS: iSTAT Arterial Blood Gas pH 7.36 (7.35-7.45)
[2020-09-16 11:05] LABS: iSTAT Art Bld Gas pCO2 Correct 44 mmHg (35-46); iSTAT Art Bld Gas pH Corrected 7.356 (7.35-7.45); iSTAT Arterial Blood Gas pCO2 44 mmHg (35-46); iSTAT Arterial Blood Gas pO2 67 mmHg (80-95); iSTAT Arterial Blood Gas pO2 C 67; iSTAT Carbon Dioxide 26 mmol/L (24-31)
[2020-09-16 11:06] LABS: iSTAT Arterial Blood Gas HCO3 25 meg/L (19-24)
[2020-09-16 11:07] LABS: iSTAT Allen Test Acceptable; iSTAT FiO2 50 %; iSTAT Sample Type Arterial; iSTAT Site R Radial
--- NOTE | 2020-09-16 11:47 | Critical Care Progress Note ---
Date of Service September 16, 2020 Assessment & Plan (1) COVID-19: Currently on insulin drip. Currently on insulin drip. Currently on an insulin drip. Currently on an insulin drip. Currently on an insulin drip.Neurologic: Analgesics and sedation: We will initiate propofol and fentanyl drips for pain control analgesia. Delirium precautions. Notably, she was also previously on baclofen 10 mg p.o. daily, BuSpar 30 p.o. twice daily, quetiapine 400 mg p.o. twice daily, propranolol 40 mg 3 times daily, prazosin 2 mg nightly, nortriptyline 50 mg nightly, trazodone 300 mg nightly, Zoloft 200 mg daily, gabapentin 300 mg p.o. 3 times daily, methocarbamol 1000 mg p.o. twice daily and Topamax 100 mg p.o. twice daily. We will start back gabapentin at reduced doses of 100 mg 3 times daily, Zoloft at 50 mg daily and quetiapine at 100 mg twice a day. I am going to hold her baclofen, BuSpar, propranolol, Trileptal, prazosin, methocarbamol and nortriptyline. Sedation will likely prove to be very difficult in this patient. We will have our pharmacist confirm these medications from the custodial. Pulmonary: Intubated on 09/15/2020. Continue lung protective ventilation strategy. FiO2 is down to 50%. PEEP of 14. Tidal volume of 370 mL/kg. Plateau pressure was 28 cm H2O. Chest x-ray reviewed with bilateral infiltrates. CT chest with contrast reviewed which demonstrated patchy multifocal groundglass opacities. No evidence of pulmonary embolism was seen. Continue Decadron 6 mg IV daily for dysregulated inflammatory response. Cardiovascular: No issues currently. Continue simvastatin for hyperlipidemia. Will check EKG today to follow-up on QTC. Gastrointestinal: We are having difficulty passing a feeding tube through her mouth or nose. Will reattempt when she is better sedated. Will initiate tube feeds tomorrow. Continue Protonix. Renal: No issues presently. We will hold on the bumetanide pushes that were given earlier. Infectious disease: Procalcitonin within normal limits. Blood cultures negative to date. No indication for antibiotics at this time. Hematologic: No issues currently. Continue DVT prophylaxis with Lovenox. Endocrine: Currently on insulin drip. VTE prophylaxis: Lovenox as above CODE STATUS: Full code Family at bedside: Not available due to the COVID-19 pandemic and given her incarceration history Disposition: Remain in the ICU Had numerous discussions with the respiratory therapist, hospitalist and nursing team. I have personally spent 35 minutes of critical care time in the direct management of this patient. This is a life/limb threatening event. This includes time spent evaluating patient, direct bedside care, chart review, placing orders, interpretation of diagnostic studies, discussion with consultants, patient, and family members, as well as other required patient management activities. This time is exclusive of all separately billable procedures, and teaching time and separate from and in addition to any other critical care service time. Thank you for allowing us to participate in the care of this patient. (2) Hypoxia: (3) GERD (gastroesophageal reflux disease): (4) Mood disorder: (5) Morbid obesity with BMI of 40.0-44.9, adult: (6) Hyperglycemia: (7) Abnormal CT scan, chest: Admission and Anticipated Discharge Date Admission Date: September 14, 2020 Subjective Patient is heavily sedated today on the ventilator. No acute issues overnight. Nursing was able to place an OG tube. Review of Systems Review of Systems: Unobtainable due to endotracheal tube and Unobtainable due to reduced consciousness Physical Exam Constitutional: + obese and + mechanically ventilated Intubated. Eyes: PERRL, conjunctivae normal, anicteric sclerae ENMT: external ear and nose normal, oropharynx normal Mouth: + small oral opening ET tube in place Neck: normal visual inspection Respiratory: Auscultation: + diminished lung sounds and + bronchovesicular breath sounds Decreased air entry bilaterally. Cardiovascular: RRR, no murmur, no edema Extremities: no edema Gastrointestinal (Abdomen): normal bowel sounds, soft, nontender, no hepatosplenomegaly Musculoskeletal: no cyanosis or clubbing, extremities motor strength 5/5 Skin: no rashes, warm and dry Numerous tattoos on her body. Neurologic: + obtunded Psychiatric: A+Ox3, euthymic affect Unable to assess while intubated Results & Data Results & Data ([facility]) Vital Signs (Past 12 Hours) Vital Signs Temp Pulse Resp BP Pulse Ox 09/16/20 11:00 99.0 F 73 93 09/16/20 10:38 98.8 F 75 126/76 94 09/16/20 10:30 98.8 F 77 93 09/16/20 10:00 98.6 F 81 94 09/16/20 09:39 98.4 F 79 120/70 94 09/16/20 09:30 98.4 F 79 94 09/16/20 09:00 98.4 F 84 92 09/16/20 08:40 98.4 F 80 92 09/16/20 08:39 98.4 F 80 133/82 93 09/16/20 08:30 98.4 F 81 91 09/16/20 08:05 84 09/16/20 08:00 98.4 F 84 91 09/16/20 07:39 97.7 F 76 142/102 H 93 09/16/20 07:30 97.5 F L 76 95 09/16/20 07:25 73 25 H 93 09/16/20 07:00 97.3 F L 72 93 09/16/20 06:39 97.2 F L 73 132/95 93 09/16/20 06:30 97.0 F L 71 93 09/16/20 06:00 96.1 F L 72 93 09/16/20 05:38 95.5 F L 72 133/103 H 96 09/16/20 05:00 97.5 F L 74 97 09/16/20 04:50 69 25 H 95 09/16/20 04:38 97.9 F 70 128/82 93 09/16/20 03:40 97.9 F 70 133/95 93 09/16/20 02:39 98.2 F 69 116/68 94 09/16/20 02:30 98.2 F 69 94 09/16/20 02:04 98.4 F 70 129/69 93 09/16/20 02:00 98.4 F 71 93 09/16/20 01:58 71 25 H 93 09/16/20 01:40 98.6 F 72 92 09/16/20 01:39 98.6 F 72 129/69 92 09/16/20 00:27 99.1 F 78 145/88 H 97 09/16/20 00:12 99.1 F 79 132/86 97 09/15/20 23:59 81 09/15/20 23:57 99.1 F 79 137/80 97 09/15/20 23:42 99.1 F 79 142/82 H 96 Vital signs, labs and imaging reviewed Coding Level of Care Code Critical Care 1st 30-74 mins Diagnoses COVID-19 U07.1 Hypoxia R09.02 GERD (gastroesophageal reflux disease) K21.9 Mood disorder F39 Morbid obesity with BMI of 40.0-44.9, adult E66.01; Z68.[address] scan, chest R93.89 Time Spent (min) 35
[2020-09-16] MEDS: REMDESIVIR 100 MG in SODIUM CHLORIDE 0.9% 230 ML IV SCH (12:36)
[2020-09-16] MEDS: PEPTAMEN INTENSE VHP 1.0 CAL 1,000 ML BAG OG SCH (12:38)
[2020-09-16] MEDS: SODIUM CHLORIDE 0.9% 10ML FLUSH IV SCH (13:39)
[2020-09-16] MEDS ORDERED: ALBUT/IPRATROP 3MG/0.5MG NEB 3 ML VIAL NEB PRN (14:08)
[2020-09-16 14:27] LABS: Calcium 8.6 mg/dl (8.5-10.1); Creatinine Clr Calc Pharmacy 137.2 ml/min; Est GFR (African American) 126.5; Est GFR (Non-African American) 109.1; Magnesium 2.1 mg/dl (1.8-2.4); Potassium 3.9 mmol/L (3.5-5.1)
--- NOTE | 2020-09-16 14:46 | Pharmacy Report ---
Pharmacy Glycemic Short Note 2 - Date of Service September 16, 2020 - Glycemic Short BSG Results (Last 24 hours): 09/15/20 09/15/20 09/15/20 15:21 15:22 17:48 Glucose POC Glucose 339 H* 371 H* 351 H* 09/15/20 09/15/20 09/15/20 19:27 20:39 21:26 Glucose POC Glucose 281 H 191 H 161 H 09/15/20 09/15/20 09/16/20 22:31 23:28 00:32 Glucose POC Glucose 153 H 146 H 147 H 09/16/20 09/16/20 09/16/20 02:33 03:32 04:33 Glucose POC Glucose 128 H 131 H 124 H 09/16/20 09/16/20 09/16/20 05:00 05:33 06:22 Glucose 125 H POC Glucose 133 H 145 H 09/16/20 09/16/20 09/16/20 07:29 08:35 09:21 Glucose POC Glucose 158 H 172 H 182 H 09/16/20 09/16/20 09/16/20 10:36 11:39 12:45 Glucose POC Glucose 214 H 210 H 246 H 09/16/20 13:44 Glucose POC Glucose 238 H OUTPATIENT ANTIDIABETIC REGIMEN: * glimeperide 2mg, metformin 1000 mg BID * A1c 9.0% 09/15 ASSESSMENT: 09/16 * Patient was intubated yesterday afternoon and initiated on an insulin infusion, currently maintained at 3.4 units/hr * Continuing dexamethasone 6 mg IV daily for now, may begin ARDS dosing 20 mg x 5 days, 10 mg x 5 days * Gave 10 units of lantus this morning after discussion with provider, will give an additional 20 units this evening, if drip is able to be transitioned off may want to utilize ICU protocol that weights in favor of q4H novolog with scale with a reduced lantus dose. Alternative strategy would be Lantus + NPH 09/15 * KM is admitted with COVID-19 infection, currently being treated with dexamethasone 6 mg IV daily and remdesivir * Patient has had episodes of hyperglycemia, likely related to steroid use + stress from infection, will utilize NPH with steroid administration * Will begin lantus with weight based stress of 2 with additional dose for tonight up to full day of weight based stress of 3 (adjusted body weight) * Will tighten novolog parameters to adjusted weight based stress of 3 PLAN FOR INPATIENT GLYCEMIC CONTROL: * Hold outpatient oral diabetes medications * Basal insulin * Lantus 10 units this morning, lantus 20 units x 1 this PM * Insulin infusion running @ 3.4 units/hr
[2020-09-16] MEDS ORDERED: FUROSEMIDE 40 MG in SYRINGE 0 ML IV ONE (15:30)
--- NOTE | 2020-09-16 15:32 | Electrocardiogram Report ---
Test Reason : Blood Pressure : / mmHG Vent. Rate : 066 BPM Atrial Rate : 066 BPM P-R Int : 174 ms QRS Dur : 080 ms QT Int : 440 ms P-R-T Axes : 032 063 062 degrees QTc Int : 461 ms Normal sinus rhythm Low voltage QRS Borderline ECG When compared with ECG of 14-SEP-2020 07:29, Criteria for Anterior infarct are no longer Present Criteria for Anterolateral infarct are no longer Present T wave inversion no longer evident in Inferior leads Nonspecific T wave abnormality no longer evident in Anterior leads Confirmed by Shahriar Lunsford ([id number]) on 09/16/2020 3:31:54 PM Referred By: REFERRED SELF Confirmed By:Edwin Lunsford
[2020-09-16] MEDS ORDERED: INSULIN GLARGINE SOLOSTAR 100 UNITS/ML 3 ML PEN SC ONE (18:00)
[2020-09-16] MEDS: ICU ELECTROLYTE REPLACEMENT PROTOCOL SCH (18:22)
--- NOTE | 2020-09-16 18:22 | Hospitalist Progress Note ---
Date of Service September 16, 2020 Assessment & Plan (1) Pneumonia due to 2019 novel coronavirus: Hypoxia to the 70s in the ED COVID + on 09/08 with random screening, sx started 09/10 Started on dexa and inhalers from the ED on 09/12, not hypoxic at that time Continue with dexamethasone, remdesivir progressive support required ill transfer to ICU now she is debated ventilated 09/07/2020 with a lung protective strategy and sedated Blood cx currently negative Lactic acid and procal WNL, not on antibiotics Trop neg Ddimer elevated CTA 09/14/20 IMPRESSION: 1. No pulmonary emboli. 2. Moderate multifocal ground glass and alveolar opacities throughout the bilateral lungs is compatible with multifocal pneumonia. 3. Mild mediastinal and hilar adenopathy, likely reactive. 4. Hepatosplenomegaly with hepatic steatosis. (2) Anemia: 10.6 on admission, was 10.5 in ED on 09/12 Monitor (3) Diabetes: A1c 9.0 now on insulin drip Holding metformin due to IV contrast significant hyperglycemia due to dexamethasone, now with glycemic pharmacy control (4) GERD (gastroesophageal reflux disease): protonix bid (5) Hypothyroid: synthroid 50 mcg a day (6) Hypercholesterolemia: statins have been shown to be helpful, if intubated will give via ng or og tube (7) Mood disorder: her medications may have respiratory supression, intensive care unit attending is using pharmacy oversight to determine what medications we can restart safely in this patient and what medications may be inappropriately on her med reconciliation list (8) Morbid obesity with BMI of 40.0-44.9, adult: by her medications appears to have LBP issues with muscle relaxants, will hold these due to concern for respiratory suppression (9) DVT prophylaxis: lovenox (10) HTN (hypertension): prazosin and propranolol on hold if rebound tachycardia will use prn metoprolol Admission and Anticipated Discharge Date Admission Date: September 14, 2020 Subjective Patient be transferred to ICU and been intubated 09/15/2019 she is hyperglycemic requiring insulin infusion pharmacy is assisting in medication management due to multiple psychotropic medications she was on at the present Review of Systems Review of Systems: Unobtainable due to endotracheal tube Physical Exam Physical Exam: The patient appeared in moderate to severe distress she is morbidly obese she is being ventilated Vital signs as documented. Chronic increasing oxygen demand she is markedly tachypneic Head exam is normocephalic atraumatic no scleral icterus Lungs are bilateral coarse breath sounds Cardiac exam, Rhythm is regular.. No murmurs, Abdominal exam reveals normal bowel sounds, soft Extremities are nonedematous and both pedal pulses are present Neurologic exam is alert and responds to commands in the afternoon Skin is without bruises or rashes Results & Data Results & Data ([facility]) Vital Signs (Past 12 Hours) Vital Signs Temp Pulse Resp BP Pulse Ox 09/16/20 17:00 97.9 F 70 94 09/16/20 16:41 67 09/16/20 16:39 97.9 F 69 155/91 H 94 09/16/20 16:30 97.9 F 69 94 09/16/20 16:00 98.1 F 65 95 09/16/20 15:39 98.1 F 65 141/73 H 96 09/16/20 15:30 98.1 F 64 96 09/16/20 15:00 98.2 F 71 96 09/16/20 14:55 67 22 95 09/16/20 14:39 98.2 F 66 142/79 H 96 09/16/20 14:30 98.2 F 66 96 09/16/20 14:00 98.2 F 66 96 09/16/20 13:39 98.2 F 67 141/77 H 95 09/16/20 13:30 98.2 F 69 95 09/16/20 13:00 98.4 F 69 96 09/16/20 12:39 96.3 F L 70 139/81 94 09/16/20 12:30 96.8 F L 71 94 09/16/20 12:00 97.9 F 73 93 09/16/20 11:39 98.6 F 74 130/71 93 09/16/20 11:30 98.8 F 73 94 09/16/20 11:20 77 25 H 94 09/16/20 11:00 99.0 F 73 93 09/16/20 10:38 98.8 F 75 126/76 94 09/16/20 10:30 98.8 F 77 93 09/16/20 10:00 98.6 F 81 94 09/16/20 09:39 98.4 F 79 120/70 94 09/16/20 09:30 98.4 F 79 94 09/16/20 09:00 98.4 F 84 92 09/16/20 08:40 98.4 F 80 92 09/16/20 08:39 98.4 F 80 133/82 93 09/16/20 08:30 98.4 F 81 91 09/16/20 08:05 84 09/16/20 08:00 98.4 F 84 91 09/16/20 07:39 97.7 F 76 142/102 H 93 09/16/20 07:30 97.5 F L 76 95 09/16/20 07:25 73 25 H 93 09/16/20 07:00 97.3 F L 72 93 09/16/20 06:39 97.2 F L 73 132/95 93 09/16/20 06:30 97.0 F L 71 93 PG Care Time/CCT Total # of Minutes Spent Total Time Spent with Patient: Total time spent is greater than 50% in coordination of care (as documented) at patient's floor/unit and/or counseling patient: Coding Level of Care Code 06829 Subseq Hosp Care Lvl 2 Diagnoses Pneumonia due to 2019 novel coronavirus U07.1; J12.82 Anemia D64.9 Diabetes E11.9 GERD (gastroesophageal reflux disease) K21.9 Hypothyroid E03.9 Hypercholesterolemia E78.00 Mood disorder F39 Morbid obesity with BMI of 40.0-44.9, adult E66.01; Z68.41 DVT prophylaxis Z29.9 HTN (hypertension) I10
[2020-09-16] MEDS: INSULIN REGULAR 250 UNITS in SODIUM CHLORIDE 0.9% 247.5 ML IV SCH (19:58)
[2020-09-16] MEDS: SIMVASTATIN 10 MG TAB PO SCH (20:06)
[2020-09-17] MEDS: INSULIN ASPART 100 UNITS/ML 3 ML PEN SC SCH ×6 (00:47→20:00)
[2020-09-17] MEDS: propofoL 1,000 MG/100 ML VIAL IV SCH ×11 (01:38→19:38)
[2020-09-17] MEDS: PROPOFOL BOLUS FROM BAG IV PRN (01:48)
[2020-09-17 04:37] LABS: iSTAT Allen Test Pass; iSTAT Arterial Blood Gas HCO3 25 meg/L (19-24); iSTAT Arterial Blood Gas pCO2 42 mmHg (35-46); iSTAT Arterial Blood Gas pH 7.39 (7.35-7.45); iSTAT Arterial Blood Gas pO2 70 mmHg (80-95); iSTAT Carbon Dioxide 27 mmol/L (24-31); iSTAT FiO2 50 %; iSTAT Site R Radial
[2020-09-17] MEDS: fentaNYL DRIP 1,250 MCG/250 ML BAG IV SCH ×2 (04:57→11:03)
[2020-09-17 05:34] LABS: Hematocrit (blood only) 31.6 % (37-47); Hemoglobin 10.1 g/dL (12.0-16.0); Mean Corpuscular Hemoglobin 27.7 pg (25-34); Mean Corpuscular Volume 86.8 fL (80-100); Mean Platelet Volume 10.4 fL (7.4-10.4); Platelet Count 308 K/uL (130-400); RDW Coefficient of Variation 14.8 % (11.5-14.5); RDW Standard Deviation 46.8 fL (36.4-46.3); Red Blood Count 3.64 M/uL (4.2-5.4); White Blood Count 8.21 K/uL (4.8-10.8)
[2020-09-17 06:34] LABS: ALC (manual) 2.27 K/uL (1.2-3.4); ANC (manual) 5.48 K/uL (1.4-6.5); Eosinophils # (manual) 0.09 K/uL (0-0.5); Eosinophils % (manual) 1.1 %; Lymphocytes # (manual) 2.27 K/uL (1.2-3.4); Lymphocytes % (manual) 27.6 %; Metamyelocytes # (manual) 0.38 K/uL (0-0); Metamyelocytes % (manual) 4.6 %; Neutrophils # (manual) 5.48 K/uL (1.4-6.5); Neutrophils % (manual) 66.7 %; RBC Morphology Unremarkable
[2020-09-17 06:41] LABS: Albumin Globulin Ratio 0.6 (0.9-2); Albumin Level 2.7 gm/dl (3.4-5.0); BUN Creatinine Ratio 26.2 (10-20); Bilirubin,Total 0.4 mg/dl (0.2-1); Calcium 9.2 mg/dl (8.5-10.1); Creatinine Clr Calc Pharmacy 133.7 ml/min; Est GFR (African American) 120.2; Est GFR (Non-African American) 103.7; Globulin 4.9 gm/dl (2.5-4.0); Magnesium 2.2 mg/dl (1.8-2.4); Phosphorus 3.6 mg/dl (2.5-4.9); Potassium 3.3 mmol/L (3.5-5.1); Total Protein 7.6 gm/dl (6.4-8.2)
[2020-09-17] MEDS: ICU ELECTROLYTE REPLACEMENT PROTOCOL SCH ×2 (06:53→18:15)
[2020-09-17] MEDS: LEVOTHYROXINE SODIUM 50 MCG TABLET PO SCH (07:01)
[2020-09-17] MEDS: POTASSIUM CHLORIDE 20 MEQ/15 ML UDC PO SCH ×4 (07:03→22:45)
--- NOTE | 2020-09-17 08:54 | Pharmacy Report ---
Pharmacy Glycemic Short Note 2 - Date of Service September 17, 2020 - Glycemic Short BSG Results (Last 24 hours): 09/16/20 09/16/20 09/16/20 09:21 10:36 11:39 Glucose POC Glucose 182 H 214 H 210 H 09/16/20 09/16/20 09/16/20 12:45 13:42 13:44 Glucose 226 H POC Glucose 246 H 238 H 09/16/20 09/16/20 09/16/20 14:47 16:05 17:01 Glucose POC Glucose 241 H 254 H 258 H 09/16/20 09/16/20 09/16/20 18:10 19:04 20:16 Glucose POC Glucose 227 H 177 H 144 H 09/16/20 09/17/20 09/17/20 21:29 00:43 03:54 Glucose POC Glucose 113 H 135 H 130 H 09/17/20 09/17/20 05:26 08:23 Glucose 131 H POC Glucose 218 H OUTPATIENT ANTIDIABETIC REGIMEN: * glimeperide 2mg, metformin 1000 mg BID * A1c 9.0% 09/15 ASSESSMENT: 09/17 * Insulin infusion transitioned to SC insulin yesterday * Patient received 30 units of Lantus and 2 units of Novolog (32 units total) * Continues on dexamethasone 6 mg IV * Will utilize ICU protocol q4h with corresponding Lantus 13 units SC BID * Instructions to cover tube feeds added to Novolog order * K+: 3.3 this morning - given 80 mEq of KCl PO * Lunch BSG of 307 mg/dL -> if still uncontrolled at 1600 check will consider IV insulin bolus vs. insulin gtt 09/16 * Patient was intubated yesterday afternoon and initiated on an insulin infusion, currently maintained at 3.4 units/hr * Continuing dexamethasone 6 mg IV daily for now, may begin ARDS dosing 20 mg x 5 days, 10 mg x 5 days * Gave 10 units of lantus this morning after discussion with provider, will give an additional 20 units this evening, if drip is able to be transitioned off may want to utilize ICU protocol that weights in favor of q4H novolog with scale with a reduced lantus dose. Alternative strategy would be Lantus + NPH 09/15 * KM is admitted with COVID-19 infection, currently being treated with dexamethasone 6 mg IV daily and remdesivir * Patient has had episodes of hyperglycemia, likely related to steroid use + stress from infection, will utilize NPH with steroid administration * Will begin lantus with weight based stress of 2 with additional dose for tonight up to full day of weight based stress of 3 (adjusted body weight) * Will tighten novolog parameters to adjusted weight based stress of 3 PLAN FOR INPATIENT GLYCEMIC CONTROL: * Hold outpatient oral diabetes medications * Basal insulin * Lantus 13 units SC BID * Bolus insulin * NovoLog per scale q4h - see EHR for details * Nutritional / Prandial insulin per carb ratio of 1 unit per 7 grams CHO consumed * --cover tube feeds
--- NOTE | 2020-09-17 08:54 | XRay Report ---
XR chest 1V portable CLINICAL HISTORY: Respiratory failure. COMPARISON STUDY: Chest CT September 14, 2020. Chest radiograph September 16, 2020. FINDINGS: Tip of endotracheal tube is approximately 3.2 cm above the elias. Tip of nasogastric tube is below the lower aspect of this image but at least within the body of the stomach. Spinal electrode s are again noted. Cardiomediastinal silhouette is stable. There is no pneumothorax. Moderate bilater al airspace opacities persist. These have slightly progressed. IMPRESSION: 1. Tip of endotracheal tube approximately 3.2 cm above the elias. 2. Moderate bilateral airspace opacities, slightly increased since prior exam. The findings represent an infectious process. ACT 112: Negative or not required by law. Electronically signed by: Alistair Ernst M.D. 09/17/2020 8:53 AM
--- NOTE | 2020-09-17 09:09 | Critical Care Progress Note ---
Date of Service September 17, 2020 Assessment & Plan (1) COVID-19: Neurologic: Analgesics and sedation: Continue propofol, will wean fentanyl drips further. We will start her on a ketamine infusion. Notably, she was also previously on baclofen 10 mg p.o. daily, BuSpar 30 p.o. twice daily, quetiapine 400 mg p.o. twice daily, propranolol 40 mg 3 times daily, prazosin 2 mg nightly, nortriptyline 50 mg nightly, trazodone 300 mg nightly, Zoloft 200 mg daily, gabapentin 300 mg p.o. 3 times daily, methocarbamol 1000 mg p.o. twice daily and Topamax 100 mg p.o. twice daily. We are continuing gabapentin 100 mg 3 times a day, Zoloft 50 mg daily and increasing quetiapine to 200 mg twice a day and baclofen 5 mg daily. Pulmonary: Intubated on 09/15/2020. Continue lung protective ventilation strategy. FiO2 is down to 50%. PEEP of 14. Tidal volume of 370 mL/kg. Continue to wean the ventilator as able. Chest x-ray reviewed with left greater than right infiltrates. CT chest with contrast reviewed which demonstrated patchy multifocal groundglass opacities. No evidence of pulmonary embolism was seen. Continue Decadron 6 mg IV daily for dysregulated inflammatory response. Cardiovascular: No issues currently. Continue simvastatin for hyperlipidemia. We will obtain a follow-up EKG today his we are going up on the quetiapine. Gastrointestinal: Continue tube feeds and Protonix. I am going to check a triglyceride level given the high amounts of propofol that she is requiring. Renal: No issues presently. Replacing electrolytes per ICU protocol. Infectious disease: Procalcitonin within normal limits. Blood cultures negative to date. No indication for antibiotics at this time. Hematologic: No issues currently. Continue DVT prophylaxis with Lovenox. Endocrine: Only on long-acting insulin. This is being managed by the ICU pharmacist. VTE prophylaxis: Lovenox as above CODE STATUS: Full code Family at bedside: Not available due to the COVID-19 pandemic and given her incarceration history Disposition: Remain in the ICU I have personally spent 42 minutes of critical care time in the direct management of this patient. This is a life/limb threatening event. This includes time spent evaluating patient, direct bedside care, chart review, placing orders, interpretation of diagnostic studies, discussion with consultants, patient, and family members, as well as other required patient management activities. This time is exclusive of all separately billable procedures, and teaching time and separate from and in addition to any other critical care service time. Thank you for allowing us to participate in the care of this patient. (2) Hypoxia: (3) GERD (gastroesophageal reflux disease): (4) Mood disorder: (5) Morbid obesity with BMI of 40.0-44.9, adult: (6) Hyperglycemia: (7) Abnormal CT scan, chest: Admission and Anticipated Discharge Date Admission Date: September 14, 2020 Subjective Patient is currently intubated and sedated. She is requiring 250 mcg of fentanyl and 50 of propofol. She is off her insulin drip. No significant events overnight. Requiring 50% FiO2 and 14 of PEEP. She is awake and tracking with her eyes. She follows commands. Review of Systems Review of Systems: Unobtainable due to endotracheal tube and Unobtainable due to reduced consciousness Results & Data Results & Data ([facility]) Vital Signs (Past 12 Hours) Vital Signs Temp Pulse Resp BP Pulse Ox 09/17/20 06:30 99.0 F 78 93 09/17/20 06:00 95.2 F L 85 92 09/17/20 05:39 97.3 F L 88 144/86 H 93 09/17/20 05:30 96.8 F L 92 H 91 09/17/20 05:00 96.6 F L 91 H 90 09/17/20 04:39 98.1 F 80 136/74 93 09/17/20 04:30 98.1 F 77 92 09/17/20 04:24 79 22 93 09/17/20 04:00 98.1 F 84 92 09/17/20 03:39 98.1 F 79 137/71 93 09/17/20 03:30 98.1 F 78 93 09/17/20 03:00 98.6 F 76 94 09/17/20 02:39 98.6 F 79 120/70 93 09/17/20 02:30 98.6 F 75 94 09/17/20 02:00 98.8 F 77 92 09/17/20 01:39 98.8 F 76 132/67 92 09/17/20 01:30 98.8 F 76 92 01/30/21 01:00 98.8 F 82 91 09/17/20 00:54 98.6 F 83 146/91 H 91 09/17/20 00:39 98.4 F 91 H 174/97 H 92 09/17/20 00:30 98.6 F 90 93 09/17/20 00:00 57.6 F L 79 93 09/16/20 23:39 55.9 F L 82 160/91 H 94 09/16/20 23:30 45.3 F L 79 23 93 09/16/20 23:00 85.6 F L 72 95 09/16/20 22:39 72.1 F L 81 159/87 H 96 09/16/20 22:30 75.0 F L 79 95 09/16/20 22:00 78.8 F L 74 95 09/16/20 21:39 78.1 F L 77 138/79 94 09/16/20 21:30 97.2 F L 82 94 I reviewed the vital signs, labs and imaging Coding Level of Care Code Critical Care 1st 30-74 mins Diagnoses COVID-19 U07.1 Hypoxia R09.02 GERD (gastroesophageal reflux disease) K21.9 Mood disorder F39 Morbid obesity with BMI of 40.0-44.9, adult E66.01; Z68.[address] scan, chest R93.89 Time Spent (min) 42
[2020-09-17] MEDS: DOCUSATE SODIUM SYRUP 100 MG/10 ML UDC PO SCH (09:12)
[2020-09-17] MEDS: ENOXAPARIN INJ 60 MG/0.6 ML SYR SQ SCH ×2 (09:13→19:44)
[2020-09-17] MEDS: GABAPENTIN 100 MG CAP PO SCH ×2 (09:13→19:45)
[2020-09-17] MEDS: BACLOFEN 10 MG TAB PO SCH (09:13)
[2020-09-17] MEDS: SERTRALINE HCL 50 MG TABLET PO SCH (09:13)
[2020-09-17] MEDS: DEXAMETHASONE SOD PHOSPHATE 6 MG in SYRINGE 0 ML IV SCH (09:14)
[2020-09-17] MEDS: INSULIN GLARGINE SOLOSTAR 100 UNITS/ML 3 ML PEN SC SCH ×2 (09:20→21:18)
[2020-09-17] MEDS: FAMOTIDINE 20 MG in SYRINGE 3 ML IV SCH ×2 (09:21→19:47)
[2020-09-17] MEDS ORDERED: MIDAZOLAM HCL 5 MG/ML VIAL IV STA (09:24)
[2020-09-17] MEDS ORDERED: MIDAZOLAM HCL 1 MG/ML 2ML VIAL ONE (09:24)
[2020-09-17] MEDS ORDERED: STAT IV Infusion **Titration per Protocol STA ×2 (09:24→18:10)
[2020-09-17] MEDS: KETAMINE HCL / NSS 500 MG/500 ML BAG IV SCH ×2 (09:46→23:58)
[2020-09-17] MEDS: QUEtiapine FUMARATE 100 MG TABLET PO SCH (11:06)
[2020-09-17] MEDS: REMDESIVIR 100 MG in SODIUM CHLORIDE 0.9% 230 ML IV SCH (11:49)
--- NOTE | 2020-09-17 13:22 | Electrocardiogram Report ---
Test Reason : Blood Pressure : / mmHG Vent. Rate : 084 BPM Atrial Rate : 084 BPM P-R Int : 158 ms QRS Dur : 088 ms QT Int : 372 ms P-R-T Axes : 026 032 017 degrees QTc Int : 439 ms Normal sinus rhythm Poor R wave progression, consider anterior NH vs. lead placement vs. LVH Abnormal ECG When compared with ECG of 16-SEP-2020 14:58, Minimal criteria for Anterior infarct are now Present Confirmed by Ender Howell ([id number]) on 09/17/2020 1:22:18 PM Referred By: REFERRED SELF Confirmed By:Ender Howell
[2020-09-17] MEDS: SODIUM CHLORIDE 0.9% 10ML FLUSH IV SCH (14:22)
[2020-09-17] MEDS ORDERED: BACLOFEN 10 MG TAB PO STA (14:47)
[2020-09-17] MEDS ORDERED: MIDAZOLAM HCL 1 MG/ML 2ML VIAL IV PRN (14:49)
--- NOTE | 2020-09-17 15:23 | Hospitalist Progress Note ---
Date of Service September 17, 2020 Assessment & Plan (1) Pneumonia due to 2019 novel coronavirus: Hypoxia to the 70s in the ED COVID + on 09/08 with random screening, sx started 09/10 Started on dexa and inhalers from the ED on 09/12, not hypoxic at that time Continue with dexamethasone, remdesivir progressive support required ill transfer to ICU now she is debated ventilated 09/07/2020 with a lung protective strategy and sedated Blood cx currently negative Lactic acid and procal WNL, not on antibiotics Trop neg Ddimer elevated CTA 09/14/20 IMPRESSION: 1. No pulmonary emboli. 2. Moderate multifocal ground glass and alveolar opacities throughout the bilateral lungs is compatible with multifocal pneumonia. 3. Mild mediastinal and hilar adenopathy, likely reactive. 4. Hepatosplenomegaly with hepatic steatosis. (2) Anemia: 10.6 on admission, was 10.5 in ED on 09/12 Monitor (3) Diabetes: A1c 9.0 now on insulin drip Holding metformin due to IV contrast significant hyperglycemia due to dexamethasone, now with glycemic pharmacy control (4) GERD (gastroesophageal reflux disease): protonix bid (5) Hypothyroid: synthroid 50 mcg a day (6) Hypercholesterolemia: statins have been shown to be helpful, if intubated will give via ng or og tube (7) Mood disorder: her medications may have respiratory supression, intensive care unit attending is using pharmacy oversight to determine what medications we can restart safely in this patient and what medications may be inappropriately on her med reconciliation list (8) Morbid obesity with BMI of 40.0-44.9, adult: by her medications appears to have LBP issues with muscle relaxants, will hold these due to concern for respiratory suppression (9) DVT prophylaxis: lovenox (10) HTN (hypertension): prazosin and propranolol on hold if rebound tachycardia will use prn metoprolol Admission and Anticipated Discharge Date Admission Date: September 14, 2020 Subjective Patient be transferred to ICU and been intubated 09/15/2019 she is hyperglycemic requiring insulin infusion pharmacy is assisting in medication management due to multiple psychotropic medications she was on at the present Review of Systems Review of Systems: Review of systems are challenging to obtain due to her tachypneic state and significant distress Physical Exam Physical Exam: The patient appeared in moderate to severe distress she is morbidly obese she is being ventilated Vital signs as documented. Chronic increasing oxygen demand she is markedly tachypneic Head exam is normocephalic atraumatic no scleral icterus Lungs are bilateral coarse breath sounds Cardiac exam, Rhythm is regular.. No murmurs, Abdominal exam reveals normal bowel sounds, soft Extremities are nonedematous and both pedal pulses are present Neurologic exam is alert and responds to commands in the afternoon Skin is without bruises or rashes Results & Data Results & Data ([facility]) Vital Signs (Past 12 Hours) Vital Signs Temp Pulse Resp BP Pulse Ox 09/17/20 15:11 80 09/17/20 11:55 80 22 91 09/17/20 10:39 98.2 F 81 118/61 91 09/17/20 09:39 98.2 F 85 130/66 92 09/17/20 08:40 80 22 92 09/17/20 08:39 98.4 F 80 123/66 92 09/17/20 08:00 77 09/17/20 07:39 98.4 F 82 119/63 91 09/17/20 06:30 99.0 F 78 93 09/17/20 06:00 95.2 F L 85 92 09/17/20 05:39 97.3 F L 88 144/86 H 93 09/17/20 05:30 96.8 F L 92 H 91 09/17/20 05:00 96.6 F L 91 H 90 09/17/20 04:39 98.1 F 80 136/74 93 09/17/20 04:30 98.1 F 77 92 09/17/20 04:24 79 22 93 09/17/20 04:00 98.1 F 84 92 09/17/20 03:39 98.1 F 79 137/71 93 09/17/20 03:30 98.1 F 78 93 PG Care Time/CCT Total # of Minutes Spent Total Time Spent with Patient: Total time spent is greater than 50% in coordination of care (as documented) at patient's floor/unit and/or counseling patient: Coding Level of Care Code 46335 Subseq Hosp Care Lvl 2 Diagnoses Pneumonia due to 2019 novel coronavirus U07.1; J12.82 Anemia D64.9 Diabetes E11.9 GERD (gastroesophageal reflux disease) K21.9 Hypothyroid E03.9 Hypercholesterolemia E78.00 Mood disorder F39 Morbid obesity with BMI of 40.0-44.9, adult E66.01; Z68.41 DVT prophylaxis Z29.9 HTN (hypertension) I10
[2020-09-17] MEDS ORDERED: NovoLIN-R BOLUS FROM BAG IV ONE (16:15)
[2020-09-17] MEDS: INSULIN REGULAR 250 UNITS in SODIUM CHLORIDE 0.9% 247.5 ML IV SCH (16:27)
[2020-09-17] MEDS: HYDROmorphone INJ 0.5 MG/0.5 ML SYR IV PRN (17:39)
[2020-09-17 17:59] LABS: BUN Creatinine Ratio 22.2 (10-20); Calcium 8.7 mg/dl (8.5-10.1); Creatinine Clr Calc Pharmacy 143.6 ml/min; Est GFR (African American) 127.7; Est GFR (Non-African American) 110.2; Magnesium 2.1 mg/dl (1.8-2.4); Phosphorus 2.9 mg/dl (2.5-4.9)
[2020-09-17 18:00] LABS: Potassium 3.9 mmol/L (3.5-5.1)
[2020-09-17] MEDS: DEXMEDETOMIDINE HCL 200 MCG in SODIUM CHLORIDE 0.9% 48 ML IV SCH (18:23)
[2020-09-17] MEDS: QUEtiapine FUMARATE 200 MG TAB PO SCH (19:44)
[2020-09-17] MEDS: busPIRone 5 MG TAB PO SCH (19:45)
[2020-09-17] MEDS: SIMVASTATIN 10 MG TAB PO SCH (19:46)
[2020-09-18] MEDS: INSULIN ASPART 100 UNITS/ML 3 ML PEN SC SCH ×6 (00:45→20:00)
[2020-09-18] MEDS: DEXMEDETOMIDINE HCL 200 MCG in SODIUM CHLORIDE 0.9% 48 ML IV SCH ×4 (01:00→11:58)
[2020-09-18] MEDS: propofoL 1,000 MG/100 ML VIAL IV SCH ×3 (01:40→13:21)
[2020-09-18] MEDS: fentaNYL DRIP 1,250 MCG/250 ML BAG IV SCH ×3 (03:56→20:01)
[2020-09-18] MEDS: PEPTAMEN INTENSE VHP 1.0 CAL 1,000 ML BAG OG SCH (04:40)
[2020-09-18 05:11] LABS: Hematocrit (blood only) 30.9 % (37-47); Hemoglobin 9.7 g/dL (12.0-16.0); Mean Corpuscular Hemoglobin 27.5 pg (25-34); Mean Corpuscular Hgb Conc 31.4 g/dL (32-36); Mean Corpuscular Volume 87.5 fL (80-100); Mean Platelet Volume 10.4 fL (7.4-10.4); Nucleated RBC # (auto) 0.05 K/uL (0-0); Nucleated RBC % (auto) 0.6 %; Platelet Count 336 K/uL (130-400); RDW Coefficient of Variation 14.9 % (11.5-14.5); RDW Standard Deviation 47.1 fL (36.4-46.3); Red Blood Count 3.53 M/uL (4.2-5.4); White Blood Count 8.42 K/uL (4.8-10.8)
[2020-09-18 05:21] LABS: iSTAT Art Bld Gas pCO2 Correct 47 mmHg (35-46); iSTAT Art Bld Gas pH Corrected 7.344 (7.35-7.45); iSTAT Arterial Blood Gas HCO3 25 meg/L (19-24); iSTAT Arterial Blood Gas pCO2 45 mmHg (35-46); iSTAT Arterial Blood Gas pH 7.36 (7.35-7.45); iSTAT Arterial Blood Gas pO2 61 mmHg (80-95); iSTAT Arterial Blood Gas pO2 C 64; iSTAT Carbon Dioxide 26 mmol/L (24-31); iSTAT FiO2 40 %; iSTAT Hematocrit 28 % (37-47); iSTAT Hemoglobin 9.5 g/dl (12.0-16.0); iSTAT Potassium 3.6 mmol/L (3.3-5.0); iSTAT Site Art Line; iSTAT Sodium 144 mmol/L (135-144)
[2020-09-18 05:29] LABS: ALC (manual) 2.29 K/uL (1.2-3.4); ANC (manual) 5.01 K/uL (1.4-6.5); Eosinophils # (manual) 0.08 K/uL (0-0.5); Eosinophils % (manual) 0.9 %; Lymphocytes # (manual) 2.29 K/uL (1.2-3.4); Lymphocytes % (manual) 27.2 %; Metamyelocytes # (manual) 0.15 K/uL (0-0); Metamyelocytes % (manual) 1.8 %; Monocytes # (manual) 0.45 K/uL (0.11-0.59); Monocytes % (manual) 5.3 %; Myelocytes # (manual) 0.45 K/uL (0-0); Myelocytes % (manual) 5.3 %; Neutrophils # (manual) 5.01 K/uL (1.4-6.5); Neutrophils % (manual) 59.5 %; RBC Morphology Unremarkable
[2020-09-18 05:41] LABS: Albumin Level 2.5 gm/dl (3.4-5.0); BUN Creatinine Ratio 25.3 (10-20); Calcium 9.1 mg/dl (8.5-10.1); Potassium 3.7 mmol/L (3.5-5.1)
[2020-09-18] MEDS: HYDROmorphone INJ 0.5 MG/0.5 ML SYR IV PRN (05:52)
[2020-09-18] MEDS: MIDAZOLAM HCL 1 MG/ML 2ML VIAL IV PRN ×4 (05:52→20:16)
[2020-09-18 05:53] LABS: Albumin Globulin Ratio 0.5 (0.9-2); Bilirubin,Total 0.3 mg/dl (0.2-1); Globulin 4.7 gm/dl (2.5-4.0); Phosphorus 3.9 mg/dl (2.5-4.9); Total Protein 7.2 gm/dl (6.4-8.2)
[2020-09-18] MEDS ORDERED: MIDAZOLAM HCL 1 MG/ML 2ML VIAL IV STA (06:42)
[2020-09-18] MEDS: ICU ELECTROLYTE REPLACEMENT PROTOCOL SCH ×2 (06:44→18:32)
[2020-09-18] MEDS: MAGNESIUM SULFATE / D5W 1 GM/100 ML BAG IV SCH ×2 (06:44→08:28)
[2020-09-18] MEDS: POTASSIUM CHLORIDE 20 MEQ/15 ML UDC PO SCH ×2 (06:44→10:07)
[2020-09-18] MEDS: LEVOTHYROXINE SODIUM 50 MCG TABLET PO SCH (06:46)
[2020-09-18] MEDS: KETAMINE HCL / NSS 500 MG/500 ML BAG IV SCH ×3 (06:56→19:53)
--- NOTE | 2020-09-18 07:18 | XRay Report ---
XR chest 1V portable CLINICAL HISTORY: Respiratory failure. COMPARISON STUDY: Chest radiograph September 17, 2020. FINDINGS: The tip of the endotracheal tube is 1.1 cm above the elias. Tip of nasogastric tube is bel ow the lower aspect of this image but at least within the body of the stomach. Spinal electrodes are noted. Lung volumes are diminished. Mild cardiomegaly is noted. There has been increase in extensive bilateral airspace opacities. There is no pneumothorax. There are suspected trace bilateral pleural e ffusions. IMPRESSION: 1. Tip of endotracheal tube 1.1 cm above the elias. The tube could be withdrawn 1 cm. 2. Increase in extensive bilateral airspace opacities suggestive of an infectious process. 3. Suspected trace bilateral pleural effusions. No pneumothorax. ACT 112: Negative or not required by law. Electronically signed by: Alistair Ernst M.D. 09/18/2020 7:16 AM
[2020-09-18] MEDS ORDERED: FUROSEMIDE 40 MG in SYRINGE 0 ML IV ONE ×2 (07:45→08:30)
[2020-09-18] MEDS: QUEtiapine FUMARATE 200 MG TAB PO SCH ×3 (08:28→19:55)
[2020-09-18] MEDS: SERTRALINE HCL 50 MG TABLET PO SCH ×2 (08:28→10:04)
[2020-09-18] MEDS: ENOXAPARIN INJ 60 MG/0.6 ML SYR SQ SCH ×2 (08:30→19:56)
[2020-09-18] MEDS: DOCUSATE SODIUM SYRUP 100 MG/10 ML UDC PO SCH (08:31)
[2020-09-18] MEDS: BACLOFEN 10 MG TAB PO SCH (08:31)
[2020-09-18] MEDS: busPIRone 5 MG TAB PO SCH ×3 (08:31→19:54)
[2020-09-18] MEDS: INSULIN GLARGINE SOLOSTAR 100 UNITS/ML 3 ML PEN SC SCH ×2 (08:32→16:20)
[2020-09-18] MEDS: FAMOTIDINE 20 MG in SYRINGE 3 ML IV SCH ×2 (08:32→19:57)
[2020-09-18] MEDS: DEXAMETHASONE SOD PHOSPHATE 6 MG in SYRINGE 0 ML IV SCH (08:36)
--- NOTE | 2020-09-18 08:46 | Pharmacy Report ---
Pharmacy Glycemic Short Note 2 - Date of Service September 18, 2020 - Glycemic Short BSG Results (Last 24 hours): 09/17/20 09/17/20 09/17/20 11:54 11:56 15:37 Glucose POC Glucose 303 H* 307 H* 321 H* 09/17/20 09/17/20 09/17/20 15:39 17:20 17:24 Glucose 242 H POC Glucose 312 H* 241 H 09/17/20 09/17/20 09/17/20 18:21 19:57 20:12 Glucose POC Glucose 198 H 126 H 124 H 09/17/20 09/17/20 09/17/20 20:27 20:40 20:54 Glucose POC Glucose 138 H 133 H 139 H 09/17/20 09/17/20 09/17/20 21:09 21:27 21:41 Glucose POC Glucose 129 H 139 H 143 H 09/17/20 09/18/20 09/18/20 22:53 00:02 00:51 Glucose POC Glucose 141 H 154 H 155 H 09/18/20 09/18/20 09/18/20 01:52 02:47 03:52 Glucose POC Glucose 138 H 149 H 146 H 09/18/20 09/18/20 09/18/20 04:44 04:50 05:43 Glucose 137 H POC Glucose 156 H 139 H 09/18/20 07:00 Glucose POC Glucose 157 H OUTPATIENT ANTIDIABETIC REGIMEN: * glimeperide 2mg, metformin 1000 mg BID * A1c 9.0% 09/15 ASSESSMENT: 09/18 * BSGs trended up throughout the day yesterday, 130, 218, 307, 312 mg/dL * Insulin infusion initiated around dinnertime and has been infusing since that time * BSGs consistently in 100-200 mg/dL range this morning, but increased significantly with increase in dexamethasone this morning * Will plan to continue insulin infusion today and provide steroid-induced hyperglycemia with NPH * Dexamethasone increased to 20 mg IV daily x 5 days, followed by 10 mg daily x 5 days per ARDS protocol * NPH 0.4 unit/kg based on adjusted body weight to start * Peptamen intense currently infusing at 50 mL/hr providing ~16 g CHO over 4 hour period 09/17 * Insulin infusion transitioned to SC insulin yesterday * Patient received 30 units of Lantus and 2 units of Novolog (32 units total) * Continues on dexamethasone 6 mg IV * Will utilize ICU protocol q4h with corresponding Lantus 13 units SC BID * Instructions to cover tube feeds added to Novolog order * K+: 3.3 this morning - given 80 mEq of KCl PO * Lunch BSG of 307 mg/dL -> if still uncontrolled at 1600 check will consider IV insulin bolus vs. insulin gtt 09/16 * Patient was intubated yesterday afternoon and initiated on an insulin infusion, currently maintained at 3.4 units/hr * Continuing dexamethasone 6 mg IV daily for now, may begin ARDS dosing 20 mg x 5 days, 10 mg x 5 days * Gave 10 units of lantus this morning after discussion with provider, will give an additional 20 units this evening, if drip is able to be transitioned off may want to utilize ICU protocol that weights in favor of q4H novolog with scale with a reduced lantus dose. Alternative strategy would be Lantus + NPH 09/15 * KM is admitted with COVID-19 infection, currently being treated with dexamethasone 6 mg IV daily and remdesivir * Patient has had episodes of hyperglycemia, likely related to steroid use + stress from infection, will utilize NPH with steroid administration * Will begin lantus with weight based stress of 2 with additional dose for tonight up to full day of weight based stress of 3 (adjusted body weight) * Will tighten novolog parameters to adjusted weight based stress of 3 PLAN FOR INPATIENT GLYCEMIC CONTROL: * Hold outpatient oral diabetes medications\ * Continue IV insulin infusion * Basal insulin * Lantus 13 units SC x 1 given this morning * ----Will increase to 20 units SC BID * NPH 35 units (0.4 unit/kg of adjusted body weight) * Bolus insulin * NovoLog per scale q4h - see EHR for details * Nutritional / Prandial insulin per carb ratio of 1 unit per 5 grams CHO consumed * --cover tube feeds
[2020-09-18] MEDS ORDERED: INSULIN HUMAN NPH SC ONE ×2 (09:00→09:30)
--- NOTE | 2020-09-18 09:05 | Critical Care Progress Note ---
Date of Service September 18, 2020 Assessment & Plan (1) COVID-19: Neurologic: Analgesics and sedation: Patient continues to be very difficult to sedate due to her history of mood disorder and drug abuse. I have stopped her propofol due to hypertriglyceridemia. She is currently on ketamine, Precedex and fentanyl. I have increased her baclofen to 10 mg daily, BuSpar to 10 mg 3 times daily, quetiapine to 400 mg p.o. twice daily, gabapentin to 300 mg 3 times daily, Zoloft at 50 mg daily and Trileptal 150 mg p.o. twice daily. Continue as needed Versed and Dilaudid. Notably, she was also previously on baclofen 10 mg p.o. daily, BuSpar 30 p.o. twice daily, quetiapine 400 mg p.o. twice daily, propranolol 40 mg 3 times daily, prazosin 2 mg nightly, nortriptyline 50 mg nightly, trazodone 300 mg nightly, Zoloft 200 mg daily, gabapentin 300 mg p.o. 3 times daily, methocarbamol 1000 mg p.o. twice daily and Topamax 100 mg p.o. twice daily. Pulmonary: Intubated on 09/15/2020. Continue lung protective ventilation strategy. FiO2 is down to 50%. PEEP of 14. Tidal volume of 370 mL/kg. Continue to wean the ventilator as able. Chest x-ray with increasing bilateral infiltrates. She had a low-grade fever overnight. I am checking a procalcitonin going to start her on cefepime. Sputum cultures ordered. CT chest with contrast reviewed which demonstrated patchy multifocal groundglass opacities. No evidence of pulmonary embolism was seen. We will increase Decadron to 20 mg for 5 days followed by 10 mg for 5 days per the DEXA ARDS protocol. Cardiovascular: No issues currently. Continue simvastatin for hyperlipidemia. Will obtain an EKG as we are uptitrating many of her psychiatric medications. Gastrointestinal: Continue tube feeds and Protonix. Rechecking triglycerides today. Continue famotidine 20 mg twice daily. Renal: No issues presently. Replacing electrolytes per ICU protocol. Giving 1 dose of 40 mg IV Lasix today. She is 3 L positive since admission. Infectious disease: Sputum cultures, procalcitonin pending as above. Starting cefepime. MRSA screen negative earlier this admission. Hematologic: No issues currently. Continue DVT prophylaxis with Lovenox. Endocrine: Currently on an insulin drip. Receiving long-acting insulin as per ICU pharmacist. VTE prophylaxis: Lovenox as above CODE STATUS: Full code Family at bedside: Not available due to the COVID-19 pandemic and given her incarceration history Disposition: Remain in the ICU I have personally spent 46 minutes of critical care time in the direct management of this patient. This is a life/limb threatening event. This includes time spent evaluating patient, direct bedside care, chart review, placing orders, interpretation of diagnostic studies, discussion with consultants, patient, and family members, as well as other required patient management activi ties. This time is exclusive of all separately billable procedures, and teaching time and separate from and in addition to any other critical care service time. Thank you for allowing us to participate in the care of this patient. (2) Hypoxia: (3) GERD (gastroesophageal reflux disease): (4) Mood disorder: (5) Morbid obesity with BMI of 40.0-44.9, adult: (6) Hyperglycemia: (7) Abnormal CT scan, chest: (8) Hypertriglyceridemia: (9) Polypharmacy: (10) Acute respiratory failure with hypoxia: (11) Drug withdrawal delirium: Admission and Anticipated Discharge Date Admission Date: September 14, 2020 Subjective Patient is currently on propofol, Precedex, ketamine and fentanyl continuous infusions. Still awake at times and is synchronous with the ventilator. Currently on 50% FiO2 and 14 of PEEP. She has not had any bowel movement since yesterday. Saturation of 89%. Otherwise no significant events overnight. Review of Systems Review of Systems: Unobtainable due to endotracheal tube and Unobtainable due to reduced consciousness Physical Exam Constitutional: + obese and + mechanically ventilated Intubated. Eyes: PERRL, conjunctivae normal, anicteric sclerae ENMT: external ear and nose normal, oropharynx normal Mouth: + small oral opening ET tube in place Neck: normal visual inspection Respiratory: Auscultation: + diminished lung sounds and + bronchovesicular breath sounds Decreased air entry bilaterally. Cardiovascular: RRR, no murmur, no edema Extremities: no edema Gastrointestinal (Abdomen): normal bowel sounds, soft, nontender, no hepatosplenomegaly Musculoskeletal: no cyanosis or clubbing, extremities motor strength 5/5 Skin: no rashes, warm and dry Numerous tattoos on her body. Neurologic: Unable to fully assess due to intubation status. She does open her eyes and tracks spontaneously. She moves her limbs purposefully. Psychiatric: Orientation: + not alert and + not oriented x 3 Eye Contact: + poor eye contact Unable to assess while intubated Results & Data Results & Data ([facility]) Vital Signs (Past 12 Hours) Vital Signs Temp Pulse Resp BP Pulse Ox 09/18/20 07:30 80 23 90 09/18/20 07:00 100.4 F H 74 89 L 09/18/20 06:40 100.2 F H 79 129/69 85 L 09/18/20 06:30 100.2 F H 73 90 09/18/20 06:00 100.6 F H 74 89 L 09/18/20 05:40 100.8 F H 90 171/90 H 96 09/18/20 05:31 100.8 F H 87 95 09/18/20 05:29 100.6 F H 86 147/71 H 94 09/18/20 05:04 84 25 H 89 L 09/18/20 05:00 100.0 F H 90 89 L 09/18/20 04:42 100.2 F H 88 129/89 90 09/18/20 04:30 100.0 F H 84 89 L 09/18/20 04:00 100.0 F H 70 91 09/18/20 03:39 100.0 F H 72 121/78 92 09/18/20 03:30 100.0 F H 71 92 09/18/20 03:00 100.0 F H 72 92 09/18/20 02:39 100.2 F H 72 125/75 92 09/18/20 02:30 100.2 F H 72 91 09/18/20 02:00 100.0 F H 77 90 09/18/20 01:39 100.0 F H 71 119/74 92 09/18/20 01:38 69 22 92 09/18/20 01:30 100.0 F H 69 92 09/18/20 01:00 99.9 F H 73 92 09/18/20 00:39 99.9 F H 71 122/79 92 09/18/20 00:30 99.9 F H 73 92 09/18/20 00:00 99.7 F H 72 93 09/17/20 23:39 99.7 F H 69 122/81 93 09/17/20 23:30 99.7 F H 71 92 09/17/20 23:00 99.7 F H 69 91 09/17/20 22:42 66 22 92 09/17/20 22:39 99.5 F 67 133/83 92 09/17/20 22:30 99.5 F 68 92 09/17/20 22:00 99.5 F 68 93 09/17/20 21:39 99.5 F 66 132/79 93 09/17/20 21:30 99.5 F 69 93 Chest x-ray with increasing bilateral airspace opacities. Vital signs reviewed. Labs reviewed. Coding Level of Care Code Critical Care 1st 30-74 mins Diagnoses COVID-19 U07.1 Hypoxia R09.02 GERD (gastroesophageal reflux disease) K21.9 Mood disorder F39 Morbid obesity with BMI of 40.0-44.9, adult E66.01; Z68.[address] scan, chest R93.89 Hypertriglyceridemia E78.1 Polypharmacy Z79.899 Acute respiratory failure with hypoxia J96.01 Drug withdrawal delirium F19.231 Time Spent (min) 46
[2020-09-18] MEDS ORDERED: CEFEPIME CONSULT ACTIVE PRN (09:08)
[2020-09-18] MEDS ORDERED: DEXAMETHASONE SOD PHOSPHATE IV STA (09:20)
[2020-09-18] MEDS: POLYETHYLENE (MIRALAX) 17 GM PACK PO SCH (10:04)
[2020-09-18] MEDS: CEFEPIME 2,000 MG in SYRINGE 0 ML IV SCH ×2 (10:04→18:59)
--- NOTE | 2020-09-18 12:38 | Electrocardiogram Report ---
Test Reason : Blood Pressure : / mmHG Vent. Rate : 088 BPM Atrial Rate : 088 BPM P-R Int : 178 ms QRS Dur : 086 ms QT Int : 386 ms P-R-T Axes : 010 012 008 degrees QTc Int : 467 ms Normal sinus rhythm Poor R wave progression, consider anterior [place] vs. lead placement vs. LVH Abnormal ECG When compared with ECG of 17-SEP-2020 09:33, No significant change Confirmed by Ender Howell ([id number]) on 09/18/2020 12:38:33 PM Referred By: REFERRED SELF Confirmed By:Ender Howell
[2020-09-18] MEDS: GABAPENTIN 100 MG CAP PO SCH ×2 (13:24→18:31)
[2020-09-18 13:49] LABS: BUN Creatinine Ratio 21.2 (10-20); Calcium 8.9 mg/dl (8.5-10.1); Creatinine Clr Calc Pharmacy 128.2 ml/min; Est GFR (African American) 114.5; Est GFR (Non-African American) 98.8; Magnesium 2.4 mg/dl (1.8-2.4); Potassium 4.2 mmol/L (3.5-5.1)
[2020-09-18] MEDS: REMDESIVIR 100 MG in SODIUM CHLORIDE 0.9% 230 ML IV SCH (13:57)
[2020-09-18] MEDS: DEXMEDETOMIDINE HCL 400 MCG in 0.9 % SODIUM CHLORIDE 96 ML IV SCH ×3 (14:00→20:53)
[2020-09-18] MEDS ORDERED: GABAPENTIN 300 MG CAP PO SCH (14:00)
[2020-09-18 14:04] LABS: Beta-Hydroxybutyrate 1.77 mg/dl (0.2-2.81)
[2020-09-18] MEDS: SODIUM CHLORIDE 0.9% 10ML FLUSH IV SCH (15:20)
[2020-09-18] MEDS: GABAPENTIN 250 MG/5 ML 470 ML BTL PO SCH ×2 (16:23→19:56)
[2020-09-18] MEDS: OXcarbazepine 150 MG TABLET PO SCH (16:24)
--- NOTE | 2020-09-18 16:47 | Hospitalist Progress Note ---
Date of Service September 18, 2020 Assessment & Plan (1) Pneumonia due to 2019 novel coronavirus: Hypoxia to the 70s in the ED COVID + on 09/08 with random screening, sx started 09/10 Started on dexa and inhalers from the ED on 09/12, not hypoxic at that time Continue with dexamethasone, now on high dose ardsnet protocol 20 mg a day x5d then 10 mg a day x 5 d, remdesivir completed progressive support required ill transfer to ICU now she is debated ventilated 09/07/2020 with a lung protective strategy and sedated Blood cx currently negative Lactic acid and procal WNL, not on antibiotics Trop neg Ddimer elevated CTA 09/14/20 IMPRESSION: 1. No pulmonary emboli. 2. Moderate multifocal ground glass and alveolar opacities throughout the bilateral lungs is compatible with multifocal pneumonia. 3. Mild mediastinal and hilar adenopathy, likely reactive. 4. Hepatosplenomegaly with hepatic steatosis. (2) Anemia: 10.6 on admission, stable (3) Diabetes: A1c 9.0 now on insulin drip Holding metformin due to IV contrast significant hyperglycemia due to dexamethasone, now with glycemic pharmacy control -> insulin gtt (4) GERD (gastroesophageal reflux disease): famotidine bid (5) Hypothyroid: synthroid 50 mcg a day (6) Hypercholesterolemia: statins have been shown to be helpful, if intubated will give via ng or og tube (7) Mood disorder: her medications may have respiratory supression, intensive care unit attending is using pharmacy oversight to determine what medications we can restart safely in this patient and what medications may be inappropriately on her med reconciliation list (8) Morbid obesity with BMI of 40.0-44.9, adult: by her medications appears to have LBP issues with muscle relaxants, will hold these due to concern for respiratory suppression (9) DVT prophylaxis: lovenox (10) HTN (hypertension): prazosin and propranolol on hold if rebound tachycardia will use prn metoprolol Admission and Anticipated Discharge Date Admission Date: September 14, 2020 Subjective Patient was transferred to ICU and intubated 09/15/2019 she is hyperglycemic requiring insulin infusion pharmacy is assisting in medication management due to multiple psychotropic medications she was on at presentation, she is sedated but requiring high doses of multiple medications Review of Systems Review of Systems: Unobtainable due to endotracheal tube Physical Exam Physical Exam: The patient appeared in moderate to severe distress she is morbidly obese she is being ventilated Vital signs as documented. Coarse BS bilateral chest rise Results & Data Results & Data ([facility]) Vital Signs (Past 12 Hours) Vital Signs Temp Pulse Resp BP Pulse Ox 09/18/20 15:15 73 20 95 09/18/20 11:25 77 23 93 09/18/20 08:00 80 09/18/20 07:30 80 23 90 09/18/20 07:00 100.4 F H 74 89 L 09/18/20 06:40 100.2 F H 79 129/69 85 L 09/18/20 06:30 100.2 F H 73 90 09/18/20 06:00 100.6 F H 74 89 L 09/18/20 05:40 100.8 F H 90 171/90 H 96 09/18/20 05:31 100.8 F H 87 95 09/18/20 05:29 100.6 F H 86 147/71 H 94 09/18/20 05:04 84 25 H 89 L 09/18/20 05:00 100.0 F H 90 89 L PG Care Time/CCT Total # of Minutes Spent Total Time Spent with Patient: Total time spent is greater than 50% in coordination of care (as documented) at patient's floor/unit and/or counseling patient: Coding Level of Care Code 42873 Subseq Hosp Care Lvl 2 Diagnoses Pneumonia due to 2019 novel coronavirus U07.1; J12.82 Anemia D64.9 Diabetes E11.9 GERD (gastroesophageal reflux disease) K21.9 Hypothyroid E03.9 Hypercholesterolemia E78.00 Mood disorder F39 Morbid obesity with BMI of 40.0-44.9, adult E66.01; Z68.41 DVT prophylaxis Z29.9 HTN (hypertension) I10
[2020-09-18] MEDS: DOCUSATE CALCIUM 240 MG CAPSULE PO SCH (19:54)
[2020-09-18] MEDS: SIMVASTATIN 10 MG TAB PO SCH (19:54)
[2020-09-19] MEDS: INSULIN ASPART 100 UNITS/ML 3 ML PEN SC SCH ×7 (00:06→23:43)
[2020-09-19] MEDS: DEXMEDETOMIDINE HCL 400 MCG in 0.9 % SODIUM CHLORIDE 96 ML IV SCH ×4 (00:07→11:35)
[2020-09-19] MEDS: HYDROmorphone INJ 0.5 MG/0.5 ML SYR IV PRN ×3 (00:23→04:57)
[2020-09-19] MEDS: MIDAZOLAM HCL 1 MG/ML 2ML VIAL IV PRN ×3 (00:23→04:57)
[2020-09-19] MEDS: PEPTAMEN INTENSE VHP 1.0 CAL 1,000 ML BAG OG SCH (00:26)
[2020-09-19] MEDS: KETAMINE HCL / NSS 500 MG/500 ML BAG IV SCH ×4 (02:03→15:05)
[2020-09-19] MEDS: CEFEPIME 2,000 MG in SYRINGE 0 ML IV SCH (02:03)
[2020-09-19] MEDS: INSULIN REGULAR 250 UNITS in SODIUM CHLORIDE 0.9% 247.5 ML IV SCH (04:00)
[2020-09-19 04:37] LABS: Hematocrit (blood only) 30.6 % (37-47); Hemoglobin 9.7 g/dL (12.0-16.0); Mean Corpuscular Hemoglobin 27.6 pg (25-34); Mean Corpuscular Hgb Conc 31.7 g/dL (32-36); Mean Corpuscular Volume 87.2 fL (80-100); Mean Platelet Volume 10.7 fL (7.4-10.4); Nucleated RBC # (auto) 0.07 K/uL (0-0); Nucleated RBC % (auto) 0.6 %; Platelet Count 342 K/uL (130-400); RDW Coefficient of Variation 14.7 % (11.5-14.5); RDW Standard Deviation 46.2 fL (36.4-46.3); Red Blood Count 3.51 M/uL (4.2-5.4); White Blood Count 11.55 K/uL (4.8-10.8)
[2020-09-19 05:00] LABS: ALC (manual) 2.01 K/uL (1.2-3.4); ANC (manual) 8.33 K/uL (1.4-6.5); Eosinophils % (manual) 0.9 %; Lymphocytes # (manual) 2.01 K/uL (1.2-3.4); Lymphocytes % (manual) 17.4 %; Metamyelocytes % (manual) 2.6 %; Monocytes % (manual) 3.5 %; Myelocytes % (manual) 3.5 %; Neutrophils # (manual) 8.33 K/uL (1.4-6.5); Neutrophils % (manual) 72.1 %; RBC Morphology Unremarkable
[2020-09-19 05:02] LABS: iSTAT Allen Test Pass; iSTAT Art Bld Gas pCO2 Correct 48 mmHg (35-46); iSTAT Arterial Blood Gas HCO3 25 meg/L (19-24); iSTAT Arterial Blood Gas pCO2 45 mmHg (35-46); iSTAT Arterial Blood Gas pH 7.36 (7.35-7.45); iSTAT Arterial Blood Gas pO2 55 mmHg (80-95); iSTAT Arterial Blood Gas pO2 C 60; iSTAT Carbon Dioxide 27 mmol/L (24-31); iSTAT FiO2 30 %; iSTAT Hematocrit 42 % (37-47); iSTAT Hemoglobin 14.3 g/dl (12.0-16.0); iSTAT Potassium 3.7 mmol/L (3.3-5.0); iSTAT Site L Radial; iSTAT Sodium 143 mmol/L (135-144)
[2020-09-19 05:04] LABS: Albumin Globulin Ratio 0.5 (0.9-2); Albumin Level 2.4 gm/dl (3.4-5.0); BUN Creatinine Ratio 29.3 (10-20); Bilirubin,Total 0.3 mg/dl (0.2-1); Creatinine Clr Calc Pharmacy 145.4 ml/min; Est GFR (African American) 128.3; Est GFR (Non-African American) 110.7; Globulin 4.6 gm/dl (2.5-4.0); Phosphorus 4.2 mg/dl (2.5-4.9)
[2020-09-19 05:26] LABS: Potassium 3.8 mmol/L (3.5-5.1)
[2020-09-19] MEDS: fentaNYL DRIP 1,250 MCG/250 ML BAG IV SCH (06:12)
[2020-09-19] MEDS: POTASSIUM CHLORIDE 20 MEQ/15 ML UDC PO SCH ×2 (06:12→08:12)
[2020-09-19] MEDS: MAGNESIUM SULFATE / D5W 1 GM/100 ML BAG IV SCH ×2 (06:12→07:49)
[2020-09-19] MEDS: ICU ELECTROLYTE REPLACEMENT PROTOCOL SCH ×2 (06:12→17:59)
[2020-09-19] MEDS: OXcarbazepine 150 MG TABLET PO SCH ×2 (06:13→17:07)
[2020-09-19] MEDS: LEVOTHYROXINE SODIUM 50 MCG TABLET PO SCH (06:13)
--- NOTE | 2020-09-19 07:55 | Critical Care Progress Note ---
Date of Service September 19, 2020 Assessment & Plan (1) COVID-19: Reason critically ill: 39y/o F who presented to the ICU on 09/15 following worsening respiratory status in the setting of COVID-19 infection Neuro: - given history of mood disorder, and drug abuse; patient continues to require multiple medications. -continue precedex, fentanyl, baclofen, buspar, seroquel, gabapentin, zoloft, and trileptal -continue as needed versed and dilaudid -discontinue ketamine Cardiac/Vascular: - Hyperlipidemia -continue simvastatin - continue to monitor on telemetry Respiratory: - patient intubated on 09/15 for concern for COVID-19 induced hypoxic respiratory failure - continue decadron 20mg for 5 days followed by 10mg for 5 additional days - continue on oxygen support maintaining O2 sats >90% GI/Nutrition: - s/p extubation, maintain NPO for 24 hours with swallow eval in AM - continue PPI Renal/Lytes: - no current electrolyte abnormalities - continue to monitor electrolytes and replace per ICU protocol ENDO: - continue to monitor per ICU protocol - pharmacy glycemic control consulted HEME: - hgb stable at 9.7 - continue to monitor ID: - COVID-19 positive from prior to admission - negative nasal MRSA earlier in hospital course - blood culture negative - discontinued Cefepime DVT Prophylaxis: - continue Lovenox, SCDs (2) Acute respiratory failure with hypoxia: (3) GERD (gastroesophageal reflux disease): (4) Hypoxia: (5) Hypertriglyceridemia: (6) Hyperglycemia: (7) Hypercholesterolemia: (8) Hypothyroid: Admission and Anticipated Discharge Date Admission Date: September 14, 2020 Supervising Physician Co-Signing Physician Notes Dr. Xie was resident physician during care of patient. I separately evaluated patient for arriaga portions of the history and the exam. I was present during the critical portion of medical decision making, and I discussed the case with the resident. I generally agree with the findings and plan. Patient's passed her spontaneous breathing trial we will proceed with a trial of extubation. Should the patient require reintubation I would highly advocate for tracheostomy as this will likely be prolonged ventilatory wean and the patient is already required multiple sedatives, early tracheostomy is associated with decreased ICU day and decreased sedation duration. Patient was discussed in multidisciplinary rounds I have personally spent 65 minutes of critical care time in the direct management of this patient. This is a life/limb threatening event. This includes time spent evaluating patient, direct bedside care, chart review, placing orders, interpretation of diagnostic studies, discussion with consultants, patient, and/or family members regarding treatment decisions, as well as other required patient management activities. This time is exclusive of all separately billable procedures, and teaching time and separate from and in addition to any other critical care service time. Subjective Patient had no acute events overnight; tolerated spontaneous breathing trial this morning, and was successfully extubated and transitioned to aerosol mask without complication. Continues to feel tired following being extubated but overall feels better. Review of Systems Review of Systems: All systems reviewed & are unremarkable except as noted in Subjective Physical Exam Constitutional: + obese Eyes: PERRL, conjunctivae normal, anicteric sclerae ENMT: external ear and nose normal, oropharynx normal Neck: normal visual inspection and trachea midline Respiratory: normal respiratory effort; no respiratory distress Auscultation: + wheezes (best heard over upper lobes); no crackles and no rales Cardiovascular: Rate/Rhythm: regular rate and regular rhythm Heart Sounds: no gallop, no murmur and no cardiac rub Vessels: normal peripheral pulses Extremities: no edema Gastrointestinal (Abdomen): normal bowel sounds, soft, nontender, no hepatosplenomegaly Musculoskeletal: no cyanosis or clubbing, extremities motor strength 5/5 Skin: no rashes, warm and dry Neurologic: PERRL, EOMI, accommodation nl, no face palsy, no dysarthria Psychiatric: A+Ox3, euthymic affect Results & Data Results & Data ([facility]) Vital Signs (Past 12 Hours) Vital Signs Temp Pulse Resp BP Pulse Ox 09/19/20 06:40 38.4 C H 66 138/83 93 09/19/20 06:30 38.4 C H 58 L 90 09/19/20 06:00 38.3 C H 66 94 09/19/20 05:40 38.3 C H 66 137/89 93 09/19/20 05:30 38.2 C H 66 93 09/19/20 05:00 38.2 C H 66 93 09/19/20 04:50 20 09/19/20 04:40 38.2 C H 68 143/88 H 91 09/19/20 04:30 38.2 C H 62 91 09/19/20 04:25 65 19 90 09/19/20 04:00 38.1 C H 63 89 L 09/19/20 03:40 38.1 C H 67 158/84 H 90 09/19/20 03:30 38.2 C H 67 91 09/19/20 03:00 38.2 C H 70 90 09/19/20 02:47 38.2 C H 71 158/98 H 89 L 09/19/20 02:45 38.2 C H 73 133/103 H 90 09/19/20 02:40 38.2 C H 72 162/102 H 85 L 09/19/20 02:30 38.3 C H 80 84 L 09/19/20 02:00 38.2 C H 66 91 09/19/20 01:52 66 21 91 09/19/20 01:40 38.2 C H 68 164/96 H 90 09/19/20 01:30 38.2 C H 66 91 09/19/20 01:06 38.2 C H 71 173/99 H 92 09/19/20 01:00 38.2 C H 70 91 09/19/20 00:40 38.2 C H 71 170/105 H 91 09/19/20 00:30 38.1 C H 71 90 09/19/20 00:00 38.1 C H 68 92 09/18/20 23:40 38.0 C H 68 160/97 H 91 09/18/20 23:30 38.0 C H 69 92 09/18/20 23:00 37.9 C H 69 92 09/18/20 22:40 37.8 C H 70 158/94 H 92 09/18/20 22:30 37.8 C H 68 91 09/18/20 22:00 37.7 C H 67 92 09/18/20 21:50 68 21 92 09/18/20 21:40 37.7 C H 67 152/89 H 92 09/18/20 21:30 37.7 C H 68 92 09/18/20 21:00 37.6 C H 68 91 09/18/20 20:40 37.7 C H 69 144/82 H 90 09/18/20 20:30 37.6 C H 74 92 09/18/20 20:00 37.7 C H 68 91 Laboratory Results 09/19/20 09/19/20 09/19/20 Range/Units 05:08 05:05 04:48 WBC (4.8-10.8) K/uL RBC (4.2-5.4) M/uL Hgb (12.0-16.0) g/dL POC Hgb 14.3 (12.0-16.0) g/dl Hct (37-47) % POC Hct 42 (37-47) % MCV (80-100) fL MCH (25-34) pg MCHC (32-36) g/dL RDW Std Deviation (36.4-46.3) fL RDW Coeff of Giselle (11.5-14.5) % Plt Count (130-400) K/uL MPV (7.4-10.4) fL Absolute Nucleated RBC (0-0) K/uL Nucleated RBC % (auto) % Neutrophils % (Manual) % Lymphocytes % (Manual) % Monocytes % (Manual) % Eosinophils % (Manual) % Metamyelocytes % (Man) % Myelocytes % (Man) % Neutrophils # (Manual) (1.4-6.5) K/uL Total Absolute Neuts (1.4-6.5) K/uL Lymphocytes # (Manual) (1.2-3.4) K/uL Total Abs Lymphocytes (1.2-3.4) K/uL Monocytes # (Manual) (0.11-0.59) K/uL Eosinophils # (Manual) (0-0.5) K/uL Metamyelocytes # (Man) (0-0) K/uL Myelocytes # (Manual) (0-0) K/uL RBC Morphology Sample Site L Radial POC pH 7.36 (7.35-7.45) POC pCO2 45 (35-46) mmHg POC pO2 55 L (80-95) mmHg POC HCO3 25 H (19-24) chuck/L POC Total CO2 27 (24-31) mmol/L POC Base Excess 0.0 (-9-1.8) chuck/L ABG pH (Temp Correct) 7.340 L (7.35-7.45) ABG pCO2 (Temp Corrct 48 H (35-46) mmHg POC ABG pO2 at Pt Temp 60 POC ABG O2 Sat 87.0 L (90-95) % Blue Test Pass O2 Delivery Device Ventilator POC O2 Rate 18 Minute Ventilation 6.8 POC FiO2 30 % Tidal Volume 370 PEEP 12 POC Sodium 143 (135-144) mmol/L Sodium (136-145) mmol/L POC Potassium 3.7 (3.3-5.0) mmol/L Potassium 3.8 (3.5-5.1) mmol/L Chloride (98-107) mmol/L Carbon Dioxide (21-32) mmol/L Anion Gap (3-11) BUN (7-18) mg/dl Creatinine (0.6-1.2) mg/dl Est Cr Clr Drug Dosing ml/min Est GFR ( Amer) Est GFR (Non-Af Amer) BUN/Creatinine Ratio (10-20) Glucose (70-99) mg/dl POC Glucose 143 H (70-99) mg/dl Calcium (8.5-10.1) mg/dl Phosphorus (2.5-4.9) mg/dl Magnesium 2.0 (1.8-2.4) mg/dl Total Bilirubin (0.2-1) mg/dl AST 21 (15-37) U/L ALT (12-78) U/L Alkaline Phosphatase (45-117) U/L Total Protein (6.4-8.2) gm/dl Albumin (3.4-5.0) gm/dl Globulin (2.5-4.0) gm/dl Albumin/Globulin Ratio (0.9-2) Triglycerides (0-150) mg/dl Beta-Hydroxybutyric Acd (0.2-2.81) mg/dl Procalcitonin (0-0.5) ng/ml 09/19/20 09/19/20 09/19/20 Range/Units 04:35 04:17 04:17 WBC 11.55 H (4.8-10.8) K/uL RBC 3.51 L (4.2-5.4) M/uL Hgb 9.7 L (12.0-16.0) g/dL POC Hgb 9.2 L (12.0-16.0) g/dl Hct 30.6 L (37-47) % POC Hct 27 L (37-47) % MCV 87.2 (80-100) fL MCH 27.6 (25-34) pg MCHC 31.7 L (32-36) g/dL RDW Std Deviation 46.2 (36.4-46.3) fL RDW Coeff of Giselle 14.7 H (11.5-14.5) % Plt Count 342 (130-400) K/uL MPV 10.7 H (7.4-10.4) fL Absolute Nucleated RBC 0.07 H (0-0) K/uL Nucleated RBC % (auto) 0.6 % Neutrophils % (Manual) 72.1 % Lymphocytes % (Manual) 17.4 % Monocytes % (Manual) 3.5 % Eosinophils % (Manual) 0.9 % Metamyelocytes % (Man) 2.6 % Myelocytes % (Man) 3.5 % Neutrophils # (Manual) 8.33 H (1.4-6.5) K/uL Total Absolute Neuts 8.33 H (1.4-6.5) K/uL Lymphocytes # (Manual) 2.01 (1.2-3.4) K/uL Total Abs Lymphocytes 2.01 (1.2-3.4) K/uL Monocytes # (Manual) 0.40 (0.11-0.59) K/uL Eosinophils # (Manual) 0.10 (0-0.5) K/uL Metamyelocytes # (Man) 0.30 H (0-0) K/uL Myelocytes # (Manual) 0.40 H (0-0) K/uL RBC Morphology Unremarkable Sample Site R Radial POC pH 7.37 (7.35-7.45) POC pCO2 46 (35-46) mmHg POC pO2 44 L (80-95) mmHg POC HCO3 27 H (19-24) chuck/L POC Total CO2 28 (24-31) mmol/L POC Base Excess 2.0 H (-9-1.8) chuck/L ABG pH (Temp Correct) 7.354 (7.35-7.45) ABG pCO2 (Temp Corrct 49 H (35-46) mmHg POC ABG pO2 at Pt Temp 48 POC ABG O2 Sat 78.0 L (90-95) % Blue Test Pass O2 Delivery Device Ventilator POC O2 Rate 18 Minute Ventilation 6.8 POC FiO2 30 % Tidal Volume 370 PEEP 12 POC Sodium 143 (135-144) mmol/L Sodium 143 (136-145) mmol/L POC Potassium 3.7 (3.3-5.0) mmol/L Potassium (3.5-5.1) mmol/L Chloride 111 H (98-107) mmol/L Carbon Dioxide 27 (21-32) mmol/L Anion Gap 5.0 (3-11) BUN 20 H (7-18) mg/dl Creatinine 0.67 (0.6-1.2) mg/dl Est Cr Clr Drug Dosing 145.4 ml/min Est GFR ( Amer) 128.3 Est GFR (Non-Af Amer) 110.7 BUN/Creatinine Ratio 29.3 H (10-20) Glucose 140 H (70-99) mg/dl POC Glucose (70-99) mg/dl Calcium 9.0 (8.5-10.1) mg/dl Phosphorus 4.2 (2.5-4.9) mg/dl Magnesium (1.8-2.4) mg/dl Total Bilirubin 0.3 (0.2-1) mg/dl AST (15-37) U/L ALT 31 (12-78) U/L Alkaline Phosphatase 95 (45-117) U/L Total Protein 7.0 (6.4-8.2) gm/dl Albumin 2.4 L (3.4-5.0) gm/dl Globulin 4.6 H (2.5-4.0) gm/dl Albumin/Globulin Ratio 0.5 L (0.9-2) Triglycerides 285 H (0-150) mg/dl Beta-Hydroxybutyric Acd (0.2-2.81) mg/dl Procalcitonin (0-0.5) ng/ml 09/19/20 09/19/20 09/19/20 Range/Units 03:56 02:47 02:07 WBC (4.8-10.8) K/uL RBC (4.2-5.4) M/uL Hgb (12.0-16.0) g/dL POC Hgb (12.0-16.0) g/dl Hct (37-47) % POC Hct (37-47) % MCV (80-100) fL MCH (25-34) pg MCHC (32-36) g/dL RDW Std Deviation (36.4-46.3) fL RDW Coeff of Giselle (11.5-14.5) % Plt Count (130-400) K/uL MPV (7.4-10.4) fL Absolute Nucleated RBC (0-0) K/uL Nucleated RBC % (auto) % Neutrophils % (Manual) % Lymphocytes % (Manual) % Monocytes % (Manual) % Eosinophils % (Manual) % Metamyelocytes % (Man) % Myelocytes % (Man) % Neutrophils # (Manual) (1.4-6.5) K/uL Total Absolute Neuts (1.4-6.5) K/uL Lymphocytes # (Manual) (1.2-3.4) K/uL Total Abs Lymphocytes (1.2-3.4) K/uL Monocytes # (Manual) (0.11-0.59) K/uL Eosinophils # (Manual) (0-0.5) K/uL Metamyelocytes # (Man) (0-0) K/uL Myelocytes # (Manual) (0-0) K/uL RBC Morphology Sample Site POC pH (7.35-7.45) POC pCO2 (35-46) mmHg POC pO2 (80-95) mmHg POC HCO3 (19-24) chuck/L POC Total CO2 (24-31) mmol/L POC Base Excess (-9-1.8) chuck/L ABG pH (Temp Correct) (7.35-7.45) ABG pCO2 (Temp Corrct (35-46) mmHg POC ABG pO2 at Pt Temp POC ABG O2 Sat (90-95) % Blue Test O2 Delivery Device POC O2 Rate Minute Ventilation POC FiO2 % Tidal Volume PEEP POC Sodium (135-144) mmol/L Sodium (136-145) mmol/L POC Potassium (3.3-5.0) mmol/L Potassium (3.5-5.1) mmol/L Chloride (98-107) mmol/L Carbon Dioxide (21-32) mmol/L Anion Gap (3-11) BUN (7-18) mg/dl Creatinine (0.6-1.2) mg/dl Est Cr Clr Drug Dosing ml/min Est GFR ( Amer) Est GFR (Non-Af Amer) BUN/Creatinine Ratio (10-20) Glucose (70-99) mg/dl POC Glucose 147 H 135 H 134 H (70-99) mg/dl Calcium (8.5-10.1) mg/dl Phosphorus (2.5-4.9) mg/dl Magnesium (1.8-2.4) mg/dl Total Bilirubin (0.2-1) mg/dl AST (15-37) U/L ALT (12-78) U/L Alkaline Phosphatase (45-117) U/L Total Protein (6.4-8.2) gm/dl Albumin (3.4-5.0) gm/dl Globulin (2.5-4.0) gm/dl Albumin/Globulin Ratio (0.9-2) Triglycerides (0-150) mg/dl Beta-Hydroxybutyric Acd (0.2-2.81) mg/dl Procalcitonin (0-0.5) ng/ml 09/19/20 09/19/20 09/18/20 Range/Units 01:06 00:03 23:07 WBC (4.8-10.8) K/uL RBC (4.2-5.4) M/uL Hgb (12.0-16.0) g/dL POC Hgb (12.0-16.0) g/dl Hct (37-47) % POC Hct (37-47) % MCV (80-100) fL MCH (25-34) pg MCHC (32-36) g/dL RDW Std Deviation (36.4-46.3) fL RDW Coeff of Giselle (11.5-14.5) % Plt Count (130-400) K/uL MPV (7.4-10.4) fL Absolute Nucleated RBC (0-0) K/uL Nucleated RBC % (auto) % Neutrophils % (Manual) % Lymphocytes % (Manual) % Monocytes % (Manual) % Eosinophils % (Manual) % Metamyelocytes % (Man) % Myelocytes % (Man) % Neutrophils # (Manual) (1.4-6.5) K/uL Total Absolute Neuts (1.4-6.5) K/uL Lymphocytes # (Manual) (1.2-3.4) K/uL Total Abs Lymphocytes (1.2-3.4) K/uL Monocytes # (Manual) (0.11-0.59) K/uL Eosinophils # (Manual) (0-0.5) K/uL Metamyelocytes # (Man) (0-0) K/uL Myelocytes # (Manual) (0-0) K/uL RBC Morphology Sample Site POC pH (7.35-7.45) POC pCO2 (35-46) mmHg POC pO2 (80-95) mmHg POC HCO3 (19-24) chuck/L POC Total CO2 (24-31) mmol/L POC Base Excess (-9-1.8) chuck/L ABG pH (Temp Correct) (7.35-7.45) ABG pCO2 (Temp Corrct (35-46) mmHg POC ABG pO2 at Pt Temp POC ABG O2 Sat (90-95) % Blue Test O2 Delivery Device POC O2 Rate Minute Ventilation POC FiO2 % Tidal Volume PEEP POC Sodium (135-144) mmol/L Sodium (136-145) mmol/L POC Potassium (3.3-5.0) mmol/L Potassium (3.5-5.1) mmol/L Chloride (98-107) mmol/L Carbon Dioxide (21-32) mmol/L Anion Gap (3-11) BUN (7-18) mg/dl Creatinine (0.6-1.2) mg/dl Est Cr Clr Drug Dosing ml/min Est GFR ( Amer) Est GFR (Non-Af Amer) BUN/Creatinine Ratio (10-20) Glucose (70-99) mg/dl POC Glucose 132 H 144 H 131 H (70-99) mg/dl Calcium (8.5-10.1) mg/dl Phosphorus (2.5-4.9) mg/dl Magnesium (1.8-2.4) mg/dl Total Bilirubin (0.2-1) mg/dl AST (15-37) U/L ALT (12-78) U/L Alkaline Phosphatase (45-117) U/L Total Protein (6.4-8.2) gm/dl Albumin (3.4-5.0) gm/dl Globulin (2.5-4.0) gm/dl Albumin/Globulin Ratio (0.9-2) Triglycerides (0-150) mg/dl Beta-Hydroxybutyric Acd (0.2-2.81) mg/dl Procalcitonin (0-0.5) ng/ml 09/18/20 09/18/20 09/18/20 Range/Units 22:07 20:58 20:09 WBC (4.8-10.8) K/uL RBC (4.2-5.4) M/uL Hgb (12.0-16.0) g/dL POC Hgb (12.0-16.0) g/dl Hct (37-47) % POC Hct (37-47) % MCV (80-100) fL MCH (25-34) pg MCHC (32-36) g/dL RDW Std Deviation (36.4-46.3) fL RDW Coeff of Giselle (11.5-14.5) % Plt Count (130-400) K/uL MPV (7.4-10.4) fL Absolute Nucleated RBC (0-0) K/uL Nucleated RBC % (auto) % Neutrophils % (Manual) % Lymphocytes % (Manual) % Monocytes % (Manual) % Eosinophils % (Manual) % Metamyelocytes % (Man) % Myelocytes % (Man) % Neutrophils # (Manual) (1.4-6.5) K/uL Total Absolute Neuts (1.4-6.5) K/uL Lymphocytes # (Manual) (1.2-3.4) K/uL Total Abs Lymphocytes (1.2-3.4) K/uL Monocytes # (Manual) (0.11-0.59) K/uL Eosinophils # (Manual) (0-0.5) K/uL Metamyelocytes # (Man) (0-0) K/uL Myelocytes # (Manual) (0-0) K/uL RBC Morphology Sample Site POC pH (7.35-7.45) POC pCO2 (35-46) mmHg POC pO2 (80-95) mmHg POC HCO3 (19-24) chuck/L POC Total CO2 (24-31) mmol/L POC Base Excess (-9-1.8) chuck/L ABG pH (Temp Correct) (7.35-7.45) ABG pCO2 (Temp Corrct (35-46) mmHg POC ABG pO2 at Pt Temp POC ABG O2 Sat (90-95) % Blue Test O2 Delivery Device POC O2 Rate Minute Ventilation POC FiO2 % Tidal Volume PEEP POC Sodium (135-144) mmol/L Sodium (136-145) mmol/L POC Potassium (3.3-5.0) mmol/L Potassium (3.5-5.1) mmol/L Chloride (98-107) mmol/L Carbon Dioxide (21-32) mmol/L Anion Gap (3-11) BUN (7-18) mg/dl Creatinine (0.6-1.2) mg/dl Est Cr Clr Drug Dosing ml/min Est GFR ( Amer) Est GFR (Non-Af Amer) BUN/Creatinine Ratio (10-20) Glucose (70-99) mg/dl POC Glucose 140 H 172 H 186 H (70-99) mg/dl Calcium (8.5-10.1) mg/dl Phosphorus (2.5-4.9) mg/dl Magnesium (1.8-2.4) mg/dl Total Bilirubin (0.2-1) mg/dl AST (15-37) U/L ALT (12-78) U/L Alkaline Phosphatase (45-117) U/L Total Protein (6.4-8.2) gm/dl Albumin (3.4-5.0) gm/dl Globulin (2.5-4.0) gm/dl Albumin/Globulin Ratio (0.9-2) Triglycerides (0-150) mg/dl Beta-Hydroxybutyric Acd (0.2-2.81) mg/dl Procalcitonin (0-0.5) ng/ml 09/18/20 09/18/20 09/18/20 Range/Units 19:05 18:10 17:03 WBC (4.8-10.8) K/uL RBC (4.2-5.4) M/uL Hgb (12.0-16.0) g/dL POC Hgb (12.0-16.0) g/dl Hct (37-47) % POC Hct (37-47) % MCV (80-100) fL MCH (25-34) pg MCHC (32-36) g/dL RDW Std Deviation (36.4-46.3) fL RDW Coeff of Giselle (11.5-14.5) % Plt Count (130-400) K/uL MPV (7.4-10.4) fL Absolute Nucleated RBC (0-0) K/uL Nucleated RBC % (auto) % Neutrophils % (Manual) % Lymphocytes % (Manual) % Monocytes % (Manual) % Eosinophils % (Manual) % Metamyelocytes % (Man) % Myelocytes % (Man) % Neutrophils # (Manual) (1.4-6.5) K/uL Total Absolute Neuts (1.4-6.5) K/uL Lymphocytes # (Manual) (1.2-3.4) K/uL Total Abs Lymphocytes (1.2-3.4) K/uL Monocytes # (Manual) (0.11-0.59) K/uL Eosinophils # (Manual) (0-0.5) K/uL Metamyelocytes # (Man) (0-0) K/uL Myelocytes # (Manual) (0-0) K/uL RBC Morphology Sample Site POC pH (7.35-7.45) POC pCO2 (35-46) mmHg POC pO2 (80-95) mmHg POC HCO3 (19-24) chuck/L POC Total CO2 (24-31) mmol/L POC Base Excess (-9-1.8) chuck/L ABG pH (Temp Correct) (7.35-7.45) ABG pCO2 (Temp Corrct (35-46) mmHg POC ABG pO2 at Pt Temp POC ABG O2 Sat (90-95) % Blue Test O2 Delivery Device POC O2 Rate Minute Ventilation POC FiO2 % Tidal Volume PEEP POC Sodium (135-144) mmol/L Sodium (136-145) mmol/L POC Potassium (3.3-5.0) mmol/L Potassium (3.5-5.1) mmol/L Chloride (98-107) mmol/L Carbon Dioxide (21-32) mmol/L Anion Gap (3-11) BUN (7-18) mg/dl Creatinine (0.6-1.2) mg/dl Est Cr Clr Drug Dosing ml/min Est GFR ( Amer) Est GFR (Non-Af Amer) BUN/Creatinine Ratio (10-20) Glucose (70-99) mg/dl POC Glucose 194 H 244 H 282 H (70-99) mg/dl Calcium (8.5-10.1) mg/dl Phosphorus (2.5-4.9) mg/dl Magnesium (1.8-2.4) mg/dl Total Bilirubin (0.2-1) mg/dl AST (15-37) U/L ALT (12-78) U/L Alkaline Phosphatase (45-117) U/L Total Protein (6.4-8.2) gm/dl Albumin (3.4-5.0) gm/dl Globulin (2.5-4.0) gm/dl Albumin/Globulin Ratio (0.9-2) Triglycerides (0-150) mg/dl Beta-Hydroxybutyric Acd (0.2-2.81) mg/dl Procalcitonin (0-0.5) ng/ml 09/18/20 09/18/20 09/18/20 Range/Units 16:10 15:06 14:03 WBC (4.8-10.8) K/uL RBC (4.2-5.4) M/uL Hgb (12.0-16.0) g/dL POC Hgb (12.0-16.0) g/dl Hct (37-47) % POC Hct (37-47) % MCV (80-100) fL MCH (25-34) pg MCHC (32-36) g/dL RDW Std Deviation (36.4-46.3) fL RDW Coeff of Giselle (11.5-14.5) % Plt Count (130-400) K/uL MPV (7.4-10.4) fL Absolute Nucleated RBC (0-0) K/uL Nucleated RBC % (auto) % Neutrophils % (Manual) % Lymphocytes % (Manual) % Monocytes % (Manual) % Eosinophils % (Manual) % Metamyelocytes % (Man) % Myelocytes % (Man) % Neutrophils # (Manual) (1.4-6.5) K/uL Total Absolute Neuts (1.4-6.5) K/uL Lymphocytes # (Manual) (1.2-3.4) K/uL Total Abs Lymphocytes (1.2-3.4) K/uL Monocytes # (Manual) (0.11-0.59) K/uL Eosinophils # (Manual) (0-0.5) K/uL Metamyelocytes # (Man) (0-0) K/uL Myelocytes # (Manual) (0-0) K/uL RBC Morphology Sample Site POC pH (7.35-7.45) POC pCO2 (35-46) mmHg POC pO2 (80-95) mmHg POC HCO3 (19-24) chuck/L POC Total CO2 (24-31) mmol/L POC Base Excess (-9-1.8) chuck/L ABG pH (Temp Correct) (7.35-7.45) ABG pCO2 (Temp Corrct (35-46) mmHg POC ABG pO2 at Pt Temp POC ABG O2 Sat (90-95) % Blue Test O2 Delivery Device POC O2 Rate Minute Ventilation POC FiO2 % Tidal Volume PEEP POC Sodium (135-144) mmol/L Sodium (136-145) mmol/L POC Potassium (3.3-5.0) mmol/L Potassium (3.5-5.1) mmol/L Chloride (98-107) mmol/L Carbon Dioxide (21-32) mmol/L Anion Gap (3-11) BUN (7-18) mg/dl Creatinine (0.6-1.2) mg/dl Est Cr Clr Drug Dosing ml/min Est GFR ( Amer) Est GFR (Non-Af Amer) BUN/Creatinine Ratio (10-20) Glucose (70-99) mg/dl POC Glucose 282 H 281 H 349 H* (70-99) mg/dl Calcium (8.5-10.1) mg/dl Phosphorus (2.5-4.9) mg/dl Magnesium (1.8-2.4) mg/dl Total Bilirubin (0.2-1) mg/dl AST (15-37) U/L ALT (12-78) U/L Alkaline Phosphatase (45-117) U/L Total Protein (6.4-8.2) gm/dl Albumin (3.4-5.0) gm/dl Globulin (2.5-4.0) gm/dl Albumin/Globulin Ratio (0.9-2) Triglycerides (0-150) mg/dl Beta-Hydroxybutyric Acd (0.2-2.81) mg/dl Procalcitonin (0-0.5) ng/ml 09/18/20 09/18/20 09/18/20 Range/Units 13:03 12:59 12:58 WBC (4.8-10.8) K/uL RBC (4.2-5.4) M/uL Hgb (12.0-16.0) g/dL POC Hgb (12.0-16.0) g/dl Hct (37-47) % POC Hct (37-47) % MCV (80-100) fL MCH (25-34) pg MCHC (32-36) g/dL RDW Std Deviation (36.4-46.3) fL RDW Coeff of Giselle (11.5-14.5) % Plt Count (130-400) K/uL MPV (7.4-10.4) fL Absolute Nucleated RBC (0-0) K/uL Nucleated RBC % (auto) % Neutrophils % (Manual) % Lymphocytes % (Manual) % Monocytes % (Manual) % Eosinophils % (Manual) % Metamyelocytes % (Man) % Myelocytes % (Man) % Neutrophils # (Manual) (1.4-6.5) K/uL Total Absolute Neuts (1.4-6.5) K/uL Lymphocytes # (Manual) (1.2-3.4) K/uL Total Abs Lymphocytes (1.2-3.4) K/uL Monocytes # (Manual) (0.11-0.59) K/uL Eosinophils # (Manual) (0-0.5) K/uL Metamyelocytes # (Man) (0-0) K/uL Myelocytes # (Manual) (0-0) K/uL RBC Morphology Sample Site POC pH (7.35-7.45) POC pCO2 (35-46) mmHg POC pO2 (80-95) mmHg POC HCO3 (19-24) chuck/L POC Total CO2 (24-31) mmol/L POC Base Excess (-9-1.8) chuck/L ABG pH (Temp Correct) (7.35-7.45) ABG pCO2 (Temp Corrct (35-46) mmHg POC ABG pO2 at Pt Temp POC ABG O2 Sat (90-95) % Blue Test O2 Delivery Device POC O2 Rate Minute Ventilation POC FiO2 % Tidal Volume PEEP POC Sodium (135-144) mmol/L Sodium 141 (136-145) mmol/L POC Potassium (3.3-5.0) mmol/L Potassium 4.2 (3.5-5.1) mmol/L Chloride 106 (98-107) mmol/L Carbon Dioxide 28 (21-32) mmol/L Anion Gap 7.0 (3-11) BUN 16 (7-18) mg/dl Creatinine 0.76 (0.6-1.2) mg/dl Est Cr Clr Drug Dosing 128.2 ml/min Est GFR ( Amer) 114.5 Est GFR (Non-Af Amer) 98.8 BUN/Creatinine Ratio 21.2 H (10-20) Glucose 313 H* (70-99) mg/dl POC Glucose 362 H* 355 H* (70-99) mg/dl Calcium 8.9 (8.5-10.1) mg/dl Phosphorus (2.5-4.9) mg/dl Magnesium 2.4 (1.8-2.4) mg/dl Total Bilirubin (0.2-1) mg/dl AST (15-37) U/L ALT (12-78) U/L Alkaline Phosphatase (45-117) U/L Total Protein (6.4-8.2) gm/dl Albumin (3.4-5.0) gm/dl Globulin (2.5-4.0) gm/dl Albumin/Globulin Ratio (0.9-2) Triglycerides (0-150) mg/dl Beta-Hydroxybutyric Acd 1.77 (0.2-2.81) mg/dl Procalcitonin (0-0.5) ng/ml 09/18/20 09/18/20 09/18/20 Range/Units 12:06 11:07 10:15 WBC (4.8-10.8) K/uL RBC (4.2-5.4) M/uL Hgb (12.0-16.0) g/dL POC Hgb (12.0-16.0) g/dl Hct (37-47) % POC Hct (37-47) % MCV (80-100) fL MCH (25-34) pg MCHC (32-36) g/dL RDW Std Deviation (36.4-46.3) fL RDW Coeff of Giselle (11.5-14.5) % Plt Count (130-400) K/uL MPV (7.4-10.4) fL Absolute Nucleated RBC (0-0) K/uL Nucleated RBC % (auto) % Neutrophils % (Manual) % Lymphocytes % (Manual) % Monocytes % (Manual) % Eosinophils % (Manual) % Metamyelocytes % (Man) % Myelocytes % (Man) % Neutrophils # (Manual) (1.4-6.5) K/uL Total Absolute Neuts (1.4-6.5) K/uL Lymphocytes # (Manual) (1.2-3.4) K/uL Total Abs Lymphocytes (1.2-3.4) K/uL Monocytes # (Manual) (0.11-0.59) K/uL Eosinophils # (Manual) (0-0.5) K/uL Metamyelocytes # (Man) (0-0) K/uL Myelocytes # (Manual) (0-0) K/uL RBC Morphology Sample Site POC pH (7.35-7.45) POC pCO2 (35-46) mmHg POC pO2 (80-95) mmHg POC HCO3 (19-24) chuck/L POC Total CO2 (24-31) mmol/L POC Base Excess (-9-1.8) chuck/L ABG pH (Temp Correct) (7.35-7.45) ABG pCO2 (Temp Corrct (35-46) mmHg POC ABG pO2 at Pt Temp POC ABG O2 Sat (90-95) % Blue Test O2 Delivery Device POC O2 Rate Minute Ventilation POC FiO2 % Tidal Volume PEEP POC Sodium (135-144) mmol/L Sodium (136-145) mmol/L POC Potassium (3.3-5.0) mmol/L Potassium (3.5-5.1) mmol/L Chloride (98-107) mmol/L Carbon Dioxide (21-32) mmol/L Anion Gap (3-11) BUN (7-18) mg/dl Creatinine (0.6-1.2) mg/dl Est Cr Clr Drug Dosing ml/min Est GFR ( Amer) Est GFR (Non-Af Amer) BUN/Creatinine Ratio (10-20) Glucose (70-99) mg/dl POC Glucose 318 H* 324 H* 271 H (70-99) mg/dl Calcium (8.5-10.1) mg/dl Phosphorus (2.5-4.9) mg/dl Magnesium (1.8-2.4) mg/dl Total Bilirubin (0.2-1) mg/dl AST (15-37) U/L ALT (12-78) U/L Alkaline Phosphatase (45-117) U/L Total Protein (6.4-8.2) gm/dl Albumin (3.4-5.0) gm/dl Globulin (2.5-4.0) gm/dl Albumin/Globulin Ratio (0.9-2) Triglycerides (0-150) mg/dl Beta-Hydroxybutyric Acd (0.2-2.81) mg/dl Procalcitonin (0-0.5) ng/ml 09/18/20 09/18/20 09/18/20 Range/Units 09:11 08:03 04:51 WBC (4.8-10.8) K/uL RBC (4.2-5.4) M/uL Hgb (12.0-16.0) g/dL POC Hgb (12.0-16.0) g/dl Hct (37-47) % POC Hct (37-47) % MCV (80-100) fL MCH (25-34) pg MCHC (32-36) g/dL RDW Std Deviation (36.4-46.3) fL RDW Coeff of Giselle (11.5-14.5) % Plt Count (130-400) K/uL MPV (7.4-10.4) fL Absolute Nucleated RBC (0-0) K/uL Nucleated RBC % (auto) % Neutrophils % (Manual) % Lymphocytes % (Manual) % Monocytes % (Manual) % Eosinophils % (Manual) % Metamyelocytes % (Man) % Myelocytes % (Man) % Neutrophils # (Manual) (1.4-6.5) K/uL Total Absolute Neuts (1.4-6.5) K/uL Lymphocytes # (Manual) (1.2-3.4) K/uL Total Abs Lymphocytes (1.2-3.4) K/uL Monocytes # (Manual) (0.11-0.59) K/uL Eosinophils # (Manual) (0-0.5) K/uL Metamyelocytes # (Man) (0-0) K/uL Myelocytes # (Manual) (0-0) K/uL RBC Morphology Sample Site POC pH (7.35-7.45) POC pCO2 (35-46) mmHg POC pO2 (80-95) mmHg POC HCO3 (19-24) chuck/L POC Total CO2 (24-31) mmol/L POC Base Excess (-9-1.8) chuck/L ABG pH (Temp Correct) (7.35-7.45) ABG pCO2 (Temp Corrct (35-46) mmHg POC ABG pO2 at Pt Temp POC ABG O2 Sat (90-95) % Blue Test O2 Delivery Device POC O2 Rate Minute Ventilation POC FiO2 % Tidal Volume PEEP POC Sodium (135-144) mmol/L Sodium (136-145) mmol/L POC Potassium (3.3-5.0) mmol/L Potassium (3.5-5.1) mmol/L Chloride (98-107) mmol/L Carbon Dioxide (21-32) mmol/L Anion Gap (3-11) BUN (7-18) mg/dl Creatinine (0.6-1.2) mg/dl Est Cr Clr Drug Dosing ml/min Est GFR ( Amer) Est GFR (Non-Af Amer) BUN/Creatinine Ratio (10-20) Glucose (70-99) mg/dl POC Glucose 242 H 190 H (70-99) mg/dl Calcium (8.5-10.1) mg/dl Phosphorus (2.5-4.9) mg/dl Magnesium (1.8-2.4) mg/dl Total Bilirubin (0.2-1) mg/dl AST (15-37) U/L ALT (12-78) U/L Alkaline Phosphatase (45-117) U/L Total Protein (6.4-8.2) gm/dl Albumin (3.4-5.0) gm/dl Globulin (2.5-4.0) gm/dl Albumin/Globulin Ratio (0.9-2) Triglycerides (0-150) mg/dl Beta-Hydroxybutyric Acd (0.2-2.81) mg/dl Procalcitonin 0.10 (0-0.5) ng/ml 09/18/20 Range/Units 04:50 WBC (4.8-10.8) K/uL RBC (4.2-5.4) M/uL Hgb (12.0-16.0) g/dL POC Hgb (12.0-16.0) g/dl Hct (37-47) % POC Hct (37-47) % MCV (80-100) fL MCH (25-34) pg MCHC (32-36) g/dL RDW Std Deviation (36.4-46.3) fL RDW Coeff of Giselle (11.5-14.5) % Plt Count (130-400) K/uL MPV (7.4-10.4) fL Absolute Nucleated RBC (0-0) K/uL Nucleated RBC % (auto) % Neutrophils % (Manual) % Lymphocytes % (Manual) % Monocytes % (Manual) % Eosinophils % (Manual) % Metamyelocytes % (Man) % Myelocytes % (Man) % Neutrophils # (Manual) (1.4-6.5) K/uL Total Absolute Neuts (1.4-6.5) K/uL Lymphocytes # (Manual) (1.2-3.4) K/uL Total Abs Lymphocytes (1.2-3.4) K/uL Monocytes # (Manual) (0.11-0.59) K/uL Eosinophils # (Manual) (0-0.5) K/uL Metamyelocytes # (Man) (0-0) K/uL Myelocytes # (Manual) (0-0) K/uL RBC Morphology Sample Site POC pH (7.35-7.45) POC pCO2 (35-46) mmHg POC pO2 (80-95) mmHg POC HCO3 (19-24) chuck/L POC Total CO2 (24-31) mmol/L POC Base Excess (-9-1.8) chuck/L ABG pH (Temp Correct) (7.35-7.45) ABG pCO2 (Temp Corrct (35-46) mmHg POC ABG pO2 at Pt Temp POC ABG O2 Sat (90-95) % Blue Test O2 Delivery Device POC O2 Rate Minute Ventilation POC FiO2 % Tidal Volume PEEP POC Sodium (135-144) mmol/L Sodium (136-145) mmol/L POC Potassium (3.3-5.0) mmol/L Potassium (3.5-5.1) mmol/L Chloride (98-107) mmol/L Carbon Dioxide (21-32) mmol/L Anion Gap (3-11) BUN (7-18) mg/dl Creatinine (0.6-1.2) mg/dl Est Cr Clr Drug Dosing ml/min Est GFR ( Amer) Est GFR (Non-Af Amer) BUN/Creatinine Ratio (10-20) Glucose (70-99) mg/dl POC Glucose (70-99) mg/dl Calcium (8.5-10.1) mg/dl Phosphorus (2.5-4.9) mg/dl Magnesium (1.8-2.4) mg/dl Total Bilirubin (0.2-1) mg/dl AST (15-37) U/L ALT (12-78) U/L Alkaline Phosphatase (45-117) U/L Total Protein (6.4-8.2) gm/dl Albumin (3.4-5.0) gm/dl Globulin (2.5-4.0) gm/dl Albumin/Globulin Ratio (0.9-2) Triglycerides 388 H (0-150) mg/dl Beta-Hydroxybutyric Acd (0.2-2.81) mg/dl Procalcitonin (0-0.5) ng/ml Medications Administered Current Inpatient Medications Acetaminophen (Acetaminophen 325 Mg Tab) 650 mg PO Q4H PRN PRN Reason: Pain or Fever Stop: 10/14/20 13:53 Last Admin: 09/14/20 17:50 Dose: 650 mg Documented by: Albuterol (Albut/Ipratrop 3mg/0.5mg Neb 3 Ml Vial) 3 ml NEB QIDR PRN PRN Reason: Shortness Of Breath Stop: 10/14/20 14:59 Baclofen (Baclofen 10 Mg Tab) 10 mg PO DAILY [facility] Stop: 10/18/20 08:59 Last Admin: 09/18/20 08:31 Dose: 10 mg Documented by: Buspirone HCl (Buspirone 5 Mg Tab) 10 mg PO TID [facility] Stop: 10/17/20 20:59 Last Admin: 09/18/20 19:54 Dose: 10 mg Documented by: Dextrose (Dextrose 50% 50 Ml Syringe) 25 - 50 ml IV UD PRN; Protocol PRN Reason: Hypoglycemia Protocol Stop: 10/14/20 13:53 Docusate Calcium (Docusate Calcium 240 Mg Capsule) 240 mg PO BID [facility] Stop: 10/18/20 20:59 Last Admin: 09/18/20 19:54 Dose: 240 mg Documented by: Enoxaparin Sodium (Enoxaparin Inj 60 Mg/0.6 Ml Syr) 60 mg SQ Q12H [facility] Stop: 10/15/20 08:59 Last Admin: 09/18/20 19:56 Dose: 60 mg Documented by: Fentanyl Citrate (Fentanyl Bolus From Bag) 50 mcg IV Q60M PRN PRN Reason: Pain or Agitation Stop: 09/29/20 18:08 Gabapentin (Gabapentin 250 Mg/5 Ml 470 Ml Btl) 300 mg PO TID [facility] Stop: 10/18/20 13:59 Last Admin: 09/18/20 19:56 Dose: 300 mg Documented by: Glucagon (Glucagon For Inj 1 Mg Vial) 1 mg SQ UD PRN; Protocol PRN Reason: Hypoglycemia Protocol Stop: 10/14/20 13:53 Glucose (Glucose 10 Tabs/Tube) 4 - 8 tabs PO UD PRN; Protocol PRN Reason: Hypoglycemia Protocol Stop: 10/14/20 13:53 Glucose (Glucose 40% Gel 15 Gm Tube) 15 - 30 gm PO UD PRN; Protocol PRN Reason: Hypoglycemia Protocol Stop: 10/14/20 13:53 Hydromorphone HCl (Hydromorphone Inj 0.5 Mg/0.5 Ml Syr) 0.5 mg IV Q2H PRN PRN Reason: Moderate Pain (4,5,6) on NRS Stop: 10/01/20 14:48 Last Admin: 09/19/20 04:57 Dose: 0.5 mg Documented by: Fentanyl Citrate (Fentanyl Drip) 1,250 mcg in 250 mls @ 25 mls/hr IV .Q10H [facility]; Protocol Stop: 09/29/20 18:14 Last Admin: 09/19/20 06:12 Dose: 125 mcg/hr, 25 mls/hr Documented by: Famotidine 20 mg/ Syringe 5 mls @ 2.5 mls/min IV BID [facility] Stop: 10/16/20 08:59 Last Admin: 09/18/20 19:57 Dose: 2.5 mls/min Documented by: Insulin Human Regular 250 (units/ Sodium Chloride) 250 mls @ 6.6 mls/hr IV .Q24 H [facility]; Protocol Stop: 10/17/20 16:14 Last Admin: 09/19/20 04:00 Dose: 6.6 units/hr, 6.6 mls/hr Documented by: Cefepime HCl 2,000 mg/ Syringe 20 mls @ 5 mls/min IV Q8H [facility]; Protocol Stop: 09/25/20 09:59 Last Admin: 09/19/20 02:03 Dose: 5 mls/min Documented by: Dexmedetomidine HCl 400 mcg/ (Sodium Chloride) 100 mls @ 29.8 mls/hr IV .Q3H22M [facility]; Protocol Stop: 09/22/20 13:44 Last Admin: 09/19/20 06:57 Dose: 1 mcg/kg/hr, 29.8 mls/hr Documented by: Ketamine HCl (Ketalar / Nss) 500 mg in 500 mls @ 95.36 mls/hr IV .Q5H15M [facility]; Protocol Stop: 10/18/20 12:59 Last Admin: 09/19/20 07:49 Dose: 0.7 mg/kg/hr, 83.4 mls/hr Documented by: Dexamethasone Sodium Phosphate (20 mg/ Dextrose) 30 mls @ 0.833 mls/min IV DAILY [facility] Stop: 10/19/20 08:59 Magnesium Sulfate/Dextrose (Magnesium Sulfate / D5w) 1 gm in 100 mls @ 50 mls/hr IV Q2H [facility] Stop: 09/19/20 09:43 Last Admin: 09/19/20 07:49 Dose: 50 mls/hr Documented by: Insulin Aspart (Insulin Aspart 100 Units/Ml 3 Ml Pen) 0 units SC Q4H [facility]; Protocol Stop: 10/17/20 19:59 Last Admin: 09/19/20 07:50 Dose: 4 units Documented by: Insulin Glargine (Insulin Glargine Solostar 100 Units/Ml 3 Ml Pen) 20 units SC BID [facility] Stop: 10/17/20 08:59 Last Admin: 09/18/20 16:20 Dose: 20 units Documented by: Levothyroxine Sodium (Levothyroxine Sodium 50 Mcg Tablet) 50 mcg PO DAILYBB [facility] Stop: 10/15/20 06:29 Last Admin: 09/19/20 06:13 Dose: 50 mcg Documented by: Magnesium Hydroxide (Magnesium Hydroxide Susp 30 Ml Udc) 30 ml PO Q12H PRN PRN Reason: Constipation Stop: 10/14/20 13:53 Midazolam HCl (Midazolam Hcl 1 Mg/Ml 2ml Vial) 1 mg IV Q2H PRN PRN Reason: Agitation Stop: 10/17/20 14:48 Last Admin: 09/19/20 04:57 Dose: 1 mg Documented by: Miscellaneous (Carbohydrates For Hypoglycemia ) 15 - 30 gm PO UD PRN PRN Reason: Hypoglycemia Protocol Stop: 10/14/20 13:53 Miscellaneous (Icu Electrolyte Replacement Protocol) 1 ea N/A BID@06,18 [facility]; Protocol Stop: 09/23/20 17:59 Last Admin: 09/19/20 06:12 Dose: 1 ea Documented by: Miscellaneous Information (Pharmacy Glycemic Mgmt Consult) 1 ea N/A UD PRN PRN Reason: Consult Stop: 10/15/20 13:24 Miscellaneous Information (Cefepime Consult Active) 1 ea N/A UD PRN PRN Reason: Consult Stop: 10/18/20 09:07 Nutritional Formula (Peptamen Intense Vhp 1.0 Vikash 1,000 Ml Bag) 1,000 ml OG .CONTINUOUS [facility]; Protocol Stop: 10/16/20 11:59 Last Admin: 09/19/20 00:26 Dose: 1,000 ml Documented by: Ondansetron HCl (Ondansetron Inj 2 Mg/Ml 2 Ml Vial) 4 mg IV Q6H PRN PRN Reason: Nausea Stop: 10/14/20 13:53 Oxcarbazepine (Oxcarbazepine 150 Mg Tablet) 150 mg PO BID@0700,1600 [facility] Stop: 10/14/20 15:59 Last Admin: 09/19/20 06:13 Dose: 150 mg Documented by: Oxcarbazepine (Oxcarbazepine 150 Mg Tablet) 600 mg PO HS [facility] Stop: 10/14/20 20:59 Last Admin: 09/15/20 20:33 Dose: 600 mg Documented by: Polyethylene Glycol (Polyethylene (Miralax) 17 Gm Pack) 17 gm PO DAILY [facility] Stop: 10/18/20 09:14 Last Admin: 09/18/20 10:04 Dose: 17 gm Documented by: Potassium Chloride (Potassium Chloride 20 Meq/15 Ml Udc) 20 meq PO Q4H [facility]; Protocol Stop: 09/19/20 09:46 Last Admin: 09/19/20 06:12 Dose: 20 meq Documented by: Quetiapine Fumarate (Quetiapine Fumarate 200 Mg Tab) 400 mg PO BID [facility] Stop: 10/18/20 08:59 Last Admin: 09/18/20 19:55 Dose: 400 mg Documented by: Sertraline HCl (Sertraline Hcl 50 Mg Tablet) [facility] [place] [facility] Stop: 10/16/20 08:59 Last Admin: 09/18/20 10:04 Dose: 50 mg Documented by: Simvastatin (Simvastatin 10 Mg Tab) 10 mg PO [facility] Stop: 10/14/20 20:59 Last Admin: 09/18/20 19:54 Dose: 10 mg Documented by: Trolamine Salicylate (Trolamine Salicylate 10% Crm 255 Appln/85 Gm Tube) 1 appln EXT BID PRN PRN Reason: Skin Irritation Stop: 10/14/20 13:53 Resident Activity Tracking Resident Involvement: Resident Care Provided Care Provided: Adult Hospital Medicine
[2020-09-19] MEDS: BACLOFEN 10 MG TAB PO SCH (08:06)
[2020-09-19] MEDS: QUEtiapine FUMARATE 200 MG TAB PO SCH ×3 (08:06→23:50)
[2020-09-19] MEDS: busPIRone 5 MG TAB PO SCH ×4 (08:07→23:49)
[2020-09-19] MEDS: ENOXAPARIN INJ 60 MG/0.6 ML SYR SQ SCH ×2 (08:08→20:50)
[2020-09-19] MEDS: DOCUSATE CALCIUM 240 MG CAPSULE PO SCH ×2 (08:08→20:51)
[2020-09-19] MEDS: FAMOTIDINE 20 MG in SYRINGE 3 ML IV SCH ×2 (08:09→20:47)
[2020-09-19] MEDS: GABAPENTIN 250 MG/5 ML 470 ML BTL PO SCH ×4 (08:09→23:50)
[2020-09-19] MEDS: POLYETHYLENE (MIRALAX) 17 GM PACK PO SCH (08:10)
--- NOTE | 2020-09-19 08:38 | XRay Report ---
XR chest 1V portable HISTORY: resp failure COMPARISON: Chest 09/18/2020. FINDINGS: Endotracheal tube terminates 2.1 cm from the elias. No pneumothorax. No pleural effusions. The heart is mildly enlarged. There are low lung volumes. Diffuse bilateral airspace opacities persi st. A spinal stimulator lead is unchanged in position. Nasogastric tube terminates below the diaphrag m. The tip is not included on this study. IMPRESSION: 1. Satisfactory support line placement. 2. No change in the diffuse bilateral airspace opacities likely representing a pneumonia. ACT 112: Negative or not required by law. Electronically signed by: José Olsen M.D. 09/19/2020 8:37 AM
--- NOTE | 2020-09-19 08:54 | Billing Data ---
Date of Service September 19, 2020 Coding Level of Care Code Critical Care 09 17- mins
[2020-09-19] MEDS ORDERED: DEXAMETHASONE SOD PHOSPHATE 20 MG in SYRINGE 0 ML IV SCH (09:00)
[2020-09-19] MEDS ORDERED: ACETAMINOPHEN 1000 MG/100 ML IV IV PRN (09:35)
[2020-09-19] MEDS: DEXAMETHASONE SOD PHOSPHATE 20 MG in DEXTROSE 5% 25 ML IV SCH (10:00)
[2020-09-19] MEDS ORDERED: ACETAMINOPHEN 1,000 MG/100 ML VIAL IV PRN (10:00)
[2020-09-19] MEDS: INSULIN GLARGINE SOLOSTAR 100 UNITS/ML 3 ML PEN SC SCH ×2 (10:32→20:49)
--- NOTE | 2020-09-19 11:17 | Pharmacy Report ---
Pharmacy Glycemic Short Note 2 - Date of Service September 19, 2020 - Glycemic Short BSG Results (Last 24 hours): 09/18/20 09/18/20 09/18/20 12:06 12:58 12:59 Glucose POC Glucose 318 H* 355 H* 362 H* 09/18/20 09/18/20 09/18/20 13:03 14:03 15:06 Glucose 313 H* POC Glucose 349 H* 281 H 09/18/20 09/18/20 09/18/20 16:10 17:03 18:10 Glucose POC Glucose 282 H 282 H 244 H 09/18/20 09/18/20 09/18/20 19:05 20:09 20:58 Glucose POC Glucose 194 H 186 H 172 H 09/18/20 09/18/20 09/19/20 22:07 23:07 00:03 Glucose POC Glucose 140 H 131 H 144 H 09/19/20 09/19/20 09/19/20 01:06 02:07 02:47 Glucose POC Glucose 132 H 134 H 135 H 09/19/20 09/19/20 09/19/20 03:56 04:17 05:05 Glucose 140 H POC Glucose 147 H 143 H 09/19/20 09/19/20 09/19/20 06:20 07:59 08:53 Glucose POC Glucose 146 H 142 H 148 H 09/19/20 10:04 Glucose POC Glucose 161 H OUTPATIENT ANTIDIABETIC REGIMEN: * glimeperide 2mg, metformin 1000 mg BID * A1c 9.0% 09/15 ASSESSMENT: 09/19 * BSGs well controlled on insulin drip this AM * Patient has been extubated, tube feeds have been stopped, IV dexamethasone co ntinues however * Patient will be NPO today, swallow eval possible tomorrow AM * Will hold insulin drip until noon-time and reassess control off insulin drip. Lantus dosing has been increased to "severe" stress wt-based dosing. * If it appears patient can be managed w/o insulin drip, will convert Novolog to Q 4 hr dosing with "severe" stress CF and CR 09/18 * BSGs trended up throughout the day yesterday, 130, 218, 307, 312 mg/dL * Insulin infusion initiated around dinnertime and has been infusing since that time * BSGs consistently in 100-200 mg/dL range this morning, but increased significantly with increase in dexamethasone this morning * Will plan to continue insulin infusion today and provide steroid-induced hyperglycemia with NPH * Dexamethasone increased to 20 mg IV daily x 5 days, followed by 10 mg daily x 5 days per [facility] protocol * NPH 0.4 unit/kg based on adjusted body weight to start * Peptamen intense currently infusing at 50 mL/hr providing ~16 g CHO over 4 hour period 09/17 * Insulin infusion transitioned to SC insulin yesterday * Patient received 30 units of Lantus and 2 units of Novolog (32 units total) * Continues on dexamethasone 6 mg IV * Will utilize ICU protocol q4h with corresponding Lantus 13 units SC BID * Instructions to cover tube feeds added to Novolog order * K+: 3.3 this morning - given 80 mEq of KCl PO * Lunch BSG of 307 mg/dL -> if still uncontrolled at 1600 check will consider IV insulin bolus vs. insulin gtt PLAN FOR INPATIENT GLYCEMIC CONTROL: * Hold insulin infusion this AM, recheck BSG at 1200 - will then determine if drip needs resumed * Basal insulin * Lantus 20 units BID * Bolus insulin * NovoLog per scale q4h * Goal Range: Low 110 - High 140 mg/dL * Correction Factor: 15mg/dL/unit * Nutritional / Prandial insulin per carb ratio of 1 unit per 5 grams CHO consumed
--- NOTE | 2020-09-19 14:08 | Hospitalist Progress Note ---
Date of Service September 19, 2020 Assessment & Plan (1) Pneumonia due to 2019 novel coronavirus: Hypoxia to the 70s in the ED. COVID + on 09/08 with random screening, sx started 09/10. - Started on dexa and inhalers from the ED on 09/12, not hypoxic at that time - Continue with dexamethasone, now on high dose ardsnet protocol 20 mg a day x 5d then 10 mg a day x 5 d, remdesivir completed. - Extubated on 09/19. - Continue supportive care (2) Anemia: 10.6 on admission, stable. Likely some iron deficiency. - Will get anemia labs once out of the ICU (3) Diabetes: A1c was 9.0% this admission. - Holding metformin due to IV contrast - Significant hyperglycemia due to dexamethasone, now with glycemic pharmacy control -> Now on basal/bolus. (4) Hypothyroid: No TSH in chart. - Continue Synthroid 50 mcg a day - Get TSH once out of the ICU (5) HTN (hypertension): BP is 120/70 presently. - Prazosin and propranolol on hold if rebound tachycardia will use prn metoprolol (6) GERD (gastroesophageal reflux disease): No report of GERD today. - Continue famotidine IV BID (7) Hypercholesterolemia: - Continue simvastatin (8) Mood disorder: - Will adjust as needed once respiratory status stable. (9) Morbid obesity with BMI of 40.0-44.9, adult: Encourage weight loss. (10) DVT prophylaxis: Lovenox 60 mg SQ Q12h -> Will reduce dosing once out of the ICU. Admission and Anticipated Discharge Date Admission Date: September 14, 2020 Subjective Feels she is doing ok this afternoon. She was extubated this morning. Reports she "alive" when asked how she is. Denies significant shortness of breath and is on an Oxymask. Physical Exam Constitutional: WD/WN, vitals as above + acute distress Eyes: EOM intact bilaterally; no conjunctival abnormality ENMT: external ear and nose normal, oropharynx normal Neck: trachea midline, no thyromegaly normal visual inspection Respiratory: + labored breathing and + tachypneic; no respiratory distress Auscultation: + crackles; no wheezes Cardiovascular: RRR, no murmur, no edema Gastrointestinal (Abdomen): Inspection/Auscultation: abdomen normal to inspection; abdomen not distended Musculoskeletal: no cyanosis or clubbing, extremities motor strength 5/5 Skin: no rashes, warm and dry Neurologic: moves all extremities and awake Psychiatric: Orientation: alert, oriented to person and cooperative Results & Data Results & Data ([facility]) Vital Signs (Past 12 Hours) Vital Signs Temp Pulse Resp BP Pulse Ox 09/19/20 10:30 37.6 C H 81 93 09/19/20 10:00 37.6 C H 78 93 09/19/20 09:40 37.7 C H 81 122/69 90 09/19/20 09:30 37.8 C H 83 92 09/19/20 09:17 38.0 C H 78 140/83 89 L 09/19/20 09:00 38.1 C H 75 20 90 09/19/20 08:40 38.2 C H 72 135/74 91 09/19/20 08:30 38.2 C H 70 89 L 09/19/20 08:00 38.3 C H 69 94 09/19/20 07:40 38.3 C H 67 144/86 H 94 09/19/20 07:30 38.3 C H 71 20 93 09/19/20 07:00 38.3 C H 68 94 09/19/20 06:41 38.4 C H 66 93 09/19/20 06:40 38.4 C H 66 138/83 93 09/19/20 06:30 38.4 C H 58 L 90 09/19/20 06:00 38.3 C H 66 94 09/19/20 05:40 38.3 C H 66 137/89 93 09/19/20 05:30 38.2 C H 66 93 09/19/20 05:00 38.2 C H 66 93 09/19/20 04:50 20 09/19/20 04:40 38.2 C H 68 143/88 H 91 09/19/20 04:30 38.2 C H 62 91 09/19/20 04:25 65 19 90 09/19/20 04:00 38.1 C H 63 89 L 09/19/20 03:40 38.1 C H 67 158/84 H 90 09/19/20 03:30 38.2 C H 67 91 09/19/20 03:00 38.2 C H 70 90 09/19/20 02:47 38.2 C H 71 158/98 H 89 L 09/19/20 02:45 38.2 C H 73 133/103 H 90 09/19/20 02:40 38.2 C H 72 162/102 H 85 L 09/19/20 02:30 38.3 C H 80 84 L 09/19/20 02:00 38.2 C H 66 91 PG Care Time/CCT Total # of Minutes Spent Total Time Spent with Patient: Total time spent is greater than 50% in coordination of care (as documented) at patient's floor/unit and/or counseling patient: Coding Level of Care Code 52129 Subseq Hosp Care Lvl 3 Diagnoses Pneumonia due to 2019 novel coronavirus U07.1; J12.82 Anemia D64.9 Diabetes E11.9 Hypothyroid E03.9 HTN (hypertension) I10 GERD (gastroesophageal reflux disease) K21.9 Hypercholesterolemia E78.00 Mood disorder F39 Morbid obesity with BMI of 40.0-44.9, adult E66.01; Z68.41 DVT prophylaxis Z29.9
[2020-09-19] MEDS: SIMVASTATIN 10 MG TAB PO SCH ×2 (20:47→23:50)
[2020-09-19] MEDS ORDERED: OXYMETAZOLINE 0.05% 30 ML BTL ONE (21:09)
[2020-09-20 04:45] LABS: Hemoglobin 9.5 g/dL (12.0-16.0); Mean Corpuscular Hemoglobin 28.1 pg (25-34); Mean Corpuscular Hgb Conc 32.8 g/dL (32-36); Mean Corpuscular Volume 85.8 fL (80-100); Mean Platelet Volume 9.9 fL (7.4-10.4); Nucleated RBC # (auto) 0.04 K/uL (0-0); Nucleated RBC % (auto) 0.3 %; Platelet Count 359 K/uL (130-400); RDW Coefficient of Variation 14.9 % (11.5-14.5); RDW Standard Deviation 46.3 fL (36.4-46.3); Red Blood Count 3.38 M/uL (4.2-5.4); White Blood Count 12.36 K/uL (4.8-10.8)
[2020-09-20] MEDS: INSULIN ASPART 100 UNITS/ML 3 ML PEN SC SCH ×5 (04:51→20:31)
[2020-09-20 04:55] LABS: INR 1.1 (0.9-1.1); Partial Thromboplastin Time 28.5 Seconds (21.0-31.0); Prothrombin Time 11.7 Seconds (9.0-12.0)
[2020-09-20 05:05] LABS: ALC (manual) 2.45 K/uL (1.2-3.4); ANC (manual) 8.42 K/uL (1.4-6.5); Eosinophils # (manual) 0.11 K/uL (0-0.5); Eosinophils % (manual) 0.9 %; Lymphocytes # (manual) 2.45 K/uL (1.2-3.4); Lymphocytes % (manual) 19.8 %; Metamyelocytes # (manual) 0.74 K/uL (0-0); Monocytes # (manual) 0.32 K/uL (0.11-0.59); Monocytes % (manual) 2.6 %; Myelocytes # (manual) 0.32 K/uL (0-0); Myelocytes % (manual) 2.6 %; Neutrophils # (manual) 8.42 K/uL (1.4-6.5); Neutrophils % (manual) 68.1 %
[2020-09-20 05:06] LABS: Albumin Level 2.4 gm/dl (3.4-5.0); BUN Creatinine Ratio 36.8 (10-20); Calcium 8.6 mg/dl (8.5-10.1); Creatinine Clr Calc Pharmacy 177.8 ml/min; Est GFR (African American) 136.9; Est GFR (Non-African American) 118.2; Magnesium 2.3 mg/dl (1.8-2.4); Potassium 3.6 mmol/L (3.5-5.1)
[2020-09-20 05:09] LABS: Albumin Globulin Ratio 0.5 (0.9-2); Bilirubin,Total 0.3 mg/dl (0.2-1); Globulin 4.5 gm/dl (2.5-4.0); Phosphorus 4.6 mg/dl (2.5-4.9); Total Protein 6.9 gm/dl (6.4-8.2)
[2020-09-20] MEDS: POTASSIUM CHLORIDE / WTR 10 MEQ/100 ML PLCT IV SCH ×4 (05:55→09:15)
--- NOTE | 2020-09-20 07:04 | Billing Data ---
Date of Service September 20, 2020 Coding Level of Care Code 29522 Initial Inpt Care Lvl 3
--- NOTE | 2020-09-20 07:07 | Critical Care Progress Note ---
Date of Service September 20, 2020 Assessment & Plan (1) COVID-19: Reason critically ill: 39y/o F who presented to the ICU on 09/15 following worsening respiratory status in the setting of COVID-19 infection; stable for Downgrade from ICU level of care Neuro: - CAM ICU negative - Will continue baclofen, BuSpar, Trileptal, Seroquel, and Zoloft without changes at this time Cardiac/Vascular: - Hyperlipidemia -continue simvastatin - continue to monitor on telemetry Respiratory: - patient intubated on 09/15 for concern for COVID-19 induced hypoxic respiratory failure - continue decadron 20mg for 2 additional days followed by 10mg for 5 additional days - continue on oxygen support maintaining O2 sats >90% GI/Nutrition: - s/p extubation yesterday - Speech-language pathology evaluation today, demonstrating toleration of diet recommended minced/moist diet and advance as tolerated - continue PPI Renal/Lytes: - no current electrolyte abnormalities - continue to monitor electrolytes and replace per ICU protocol ENDO: - continue to monitor glycemic control while on Decadron - will receive additional 2 days of Decadron 20mg before decrease to Decadron 10mg for additional 5 days - pharmacy glycemic management consulted HEME: - hgb stable at 9.5 - continue to monitor ID: - COVID-19 positive from prior to admission - negative nasal MRSA earlier in hospital course - blood culture negative - discontinued Cefepime DVT Prophylaxis: - continue Lovenox (2) Acute respiratory failure with hypoxia: (3) GERD (gastroesophageal reflux disease): (4) Hypoxia: (5) Hypertriglyceridemia: (6) Hyperglycemia: (7) Hypercholesterolemia: (8) Hypothyroid: Admission and Anticipated Discharge Date Admission Date: September 14, 2020 Supervising Physician Co-Signing Physician Notes Dr. Xie was resident physician during care of patient. I separately evaluated patient for arriaga portions of the history and the exam. I was present during the critical portion of medical decision making, and I discussed the case with the resident. I generally agree with the findings and plan. Patient has since significant improvement, stable for downgrade out of the ICU to MedSurg in the Covid unit. Subjective Patient no acute events overnight, continues to feel overall improved with decreased feelings of shortness of breath, wheeze; was able to be transitioned off oxygen mask early this morning and on to nasal cannula without complication. Review of Systems Review of Systems: All systems reviewed & are unremarkable except as noted in Subjective Physical Exam Constitutional: + obese Eyes: PERRL, conjunctivae normal, anicteric sclerae ENMT: external ear and nose normal, oropharynx normal Neck: normal visual inspection and trachea midline Respiratory: normal respiratory effort; no respiratory distress Auscul tation: + wheezes (best heard over upper lobes); no crackles and no rales Cardiovascular: Rate/Rhythm: regular rate and regular rhythm Heart Sounds: no gallop, no murmur and no cardiac rub Vessels: normal peripheral pulses Extremities: no edema Gastrointestinal (Abdomen): normal bowel sounds, soft, nontender, no hepatosplenomegaly Musculoskeletal: no cyanosis or clubbing, extremities motor strength 5/5 Skin: no rashes, warm and dry Neurologic: PERRL, EOMI, accommodation nl, no face palsy, no dysarthria deep tendon reflexes 2+ bilaterally Psychiatric: A+Ox3, euthymic affect Results & Data Results & Data ([facility]) Vital Signs (Past 12 Hours) Vital Signs Temp Pulse Pulse Resp BP Pulse Ox 09/20/20 06:00 37.2 C 93 H 93 09/20/20 05:40 37.2 C 90 18 131/88 93 09/20/20 05:00 37.2 C 90 94 09/20/20 04:41 37.2 C 89 94 09/20/20 04:40 37.2 C 94 H 157/88 H 94 09/20/20 03:40 37.2 C 88 18 129/82 92 09/20/20 03:00 37.1 C 90 95 09/20/20 02:40 37.1 C 91 H 136/89 93 09/20/20 02:01 37.5 C 96 H 91 09/20/20 02:00 37.5 C 87 129/84 92 09/20/20 01:56 37.5 C 88 137/106 H 93 09/20/20 01:40 20 09/20/20 01:00 37.4 C 90 93 09/20/20 00:40 37.5 C 91 H 147/107 H 93 09/20/20 00:00 37.4 C 89 94 09/19/20 23:50 91 H 09/19/20 23:40 37.4 C 88 22 156/97 H 92 09/19/20 23:00 37.4 C 91 H 93 09/19/20 22:40 37.4 C 90 148/98 H 93 09/19/20 22:30 37.4 C 87 94 09/19/20 22:00 37.5 C 90 94 09/19/20 21:48 37.5 C 87 163/105 H 95 09/19/20 21:44 89 20 95 09/19/20 21:40 37.5 C 97 H 163/105 H 95 09/19/20 21:30 37.5 C 91 H 90 09/19/20 21:00 37.5 C 98 H 95 09/19/20 20:40 37.5 C 93 H 139/109 H 95 09/19/20 20:30 37.5 C 98 H 95 09/19/20 20:00 37.5 C 97 H 95 09/19/20 19:40 37.5 C 98 H 170/114 H 93 09/19/20 19:30 37.5 C 103 H 95 Laboratory Results 09/20/20 09/20/20 09/20/20 Range/Units 11:55 07:23 04:37 WBC (4.8-10.8) K/uL RBC (4.2-5.4) M/uL Hgb (12.0-16.0) g/dL POC Hgb Hct (37-47) % POC Hct MCV (80-100) fL MCH (25-34) pg MCHC (32-36) g/dL RDW Std Deviation (36.4-46.3) fL RDW Coeff of Giselle (11.5-14.5) % Plt Count (130-400) K/uL MPV (7.4-10.4) fL Absolute Nucleated RBC (0-0) K/uL Nucleated RBC % (auto) % Neutrophils % (Manual) % Lymphocytes % (Manual) % Monocytes % (Manual) % Eosinophils % (Manual) % Metamyelocytes % (Man) % Myelocytes % (Man) % Neutrophils # (Manual) (1.4-6.5) K/uL Total Absolute Neuts (1.4-6.5) K/uL Lymphocytes # (Manual) (1.2-3.4) K/uL Total Abs Lymphocytes (1.2-3.4) K/uL Monocytes # (Manual) (0.11-0.59) K/uL Eosinophils # (Manual) (0-0.5) K/uL Metamyelocytes # (Man) (0-0) K/uL Myelocytes # (Manual) (0-0) K/uL PT (9.0-12.0) Seconds INR (0.9-1.1) APTT (21.0-31.0) Seconds PTT Ratio Specimen Type Sample Site Patient Temperature POC pH POC pCO2 POC pO2 POC HCO3 POC Total CO2 POC Base Excess O2 Sat Pulse Oximetry ABG pH (Temp Correct) ABG pCO2 (Temp Corrct POC ABG pO2 at Pt Temp POC ABG O2 Sat Blue Test Set Respiration Rate O2 Delivery Device POC O2 Rate Minute Ventilation Vent Mode Vent Setting Spontaneous Rate FiO2 (liters per min) POC FiO2 Tidal Volume Spontaneous Tidal Vol End Tidal CO2 PEEP High PEEP Setting Low PEEP Setting Pressure Support POC Pressure Suppt Pressure Support Vent Pressure High Time High Time Low EPAP IPAP POC Blood Gas Comment POC Sodium Sodium (136-145) mmol/L POC Potassium Potassium (3.5-5.1) mmol/L Chloride (98-107) mmol/L Carbon Dioxide (21-32) mmol/L Anion Gap (3-11) BUN (7-18) mg/dl Creatinine (0.6-1.2) mg/dl Est Cr Clr Drug Dosing ml/min Est GFR ( Amer) Est GFR (Non-Af Amer) BUN/Creatinine Ratio (10-20) Glucose (70-99) mg/dl POC Glucose 261 H 117 H 96 (70-99) mg/dl Calcium (8.5-10.1) mg/dl Phosphorus (2.5-4.9) mg/dl Magnesium (1.8-2.4) mg/dl Total Bilirubin (0.2-1) mg/dl AST (15-37) U/L ALT (12-78) U/L Alkaline Phosphatase (45-117) U/L Total Protein (6.4-8.2) gm/dl Albumin (3.4-5.0) gm/dl Globulin (2.5-4.0) gm/dl Albumin/Globulin Ratio (0.9-2) 09/20/20 09/20/20 09/20/20 Range/Units 04:31 04:31 04:31 WBC 12.36 H (4.8-10.8) K/uL RBC 3.38 L (4.2-5.4) M/uL Hgb 9.5 L (12.0-16.0) g/dL POC Hgb Hct 29.0 L (37-47) % POC Hct MCV 85.8 (80-100) fL MCH 28.1 (25-34) pg MCHC 32.8 (32-36) g/dL RDW Std Deviation 46.3 (36.4-46.3) fL RDW Coeff of Giselle 14.9 H (11.5-14.5) % Plt Count 359 (130-400) K/uL MPV 9.9 (7.4-10.4) fL Absolute Nucleated RBC 0.04 H (0-0) K/uL Nucleated RBC % (auto) 0.3 % Neutrophils % (Manual) 68.1 % Lymphocytes % (Manual) 19.8 % Monocytes % (Manual) 2.6 % Eosinophils % (Manual) 0.9 % Metamyelocytes % (Man) 6.0 % Myelocytes % (Man) 2.6 % Neutrophils # (Manual) 8.42 H (1.4-6.5) K/uL Total Absolute Neuts 8.42 H (1.4-6.5) K/uL Lymphocytes # (Manual) 2.45 (1.2-3.4) K/uL Total Abs Lymphocytes 2.45 (1.2-3.4) K/uL Monocytes # (Manual) 0.32 (0.11-0.59) K/uL Eosinophils # (Manual) 0.11 (0-0.5) K/uL Metamyelocytes # (Man) 0.74 H (0-0) K/uL Myelocytes # (Manual) 0.32 H (0-0) K/uL PT 11.7 (9.0-12.0) Seconds INR 1.1 (0.9-1.1) APTT 28.5 (21.0-31.0) Seconds PTT Ratio 1.0 Specimen Type Sample Site Patient Temperature POC pH POC pCO2 POC pO2 POC HCO3 POC Total CO2 POC Base Excess O2 Sat Pulse Oximetry ABG pH (Temp Correct) ABG pCO2 (Temp Corrct POC ABG pO2 at Pt Temp POC ABG O2 Sat Blue Test Set Respiration Rate O2 Delivery Device POC O2 Rate Minute Ventilation Vent Mode Vent Setting Spontaneous Rate FiO2 (liters per min) POC FiO2 Tidal Volume Spontaneous Tidal Vol End Tidal CO2 PEEP High PEEP Setting Low PEEP Setting Pressure Support POC Pressure Suppt Pressure Support Vent Pressure High Time High Time Low EPAP IPAP POC Blood Gas Comment POC Sodium Sodium 145 (136-145) mmol/L POC Potassium Potassium 3.6 (3.5-5.1) mmol/L Chloride 109 H (98-107) mmol/L Carbon Dioxide 31 (21-32) mmol/L Anion Gap 5.0 (3-11) BUN 20 H (7-18) mg/dl Creatinine 0.55 L (0.6-1.2) mg/dl Est Cr Clr Drug Dosing 177.8 ml/min Est GFR ( Amer) 136.9 Est GFR (Non-Af Amer) 118.2 BUN/Creatinine Ratio 36.8 H (10-20) Glucose 95 (70-99) mg/dl POC Glucose (70-99) mg/dl Calcium 8.6 (8.5-10.1) mg/dl Phosphorus 4.6 (2.5-4.9) mg/dl Magnesium 2.3 (1.8-2.4) mg/dl Total Bilirubin 0.3 (0.2-1) mg/dl AST 31 (15-37) U/L ALT 31 (12-78) U/L Alkaline Phosphatase 88 (45-117) U/L Total Protein 6.9 (6.4-8.2) gm/dl Albumin 2.4 L (3.4-5.0) gm/dl Globulin 4.5 H (2.5-4.0) gm/dl Albumin/Globulin Ratio 0.5 L (0.9-2) 09/19/20 09/19/20 09/19/20 Range/Units 23:29 20:46 15:47 WBC (4.8-10.8) K/uL RBC (4.2-5.4) M/uL Hgb (12.0-16.0) g/dL POC Hgb Hct (37-47) % POC Hct MCV (80-100) fL MCH (25-34) pg MCHC (32-36) g/dL RDW Std Deviation (36.4-46.3) fL RDW Coeff of Giselle (11.5-14.5) % Plt Count (130-400) K/uL MPV (7.4-10.4) fL Absolute Nucleated RBC (0-0) K/uL Nucleated RBC % (auto) % Neutrophils % (Manual) % Lymphocytes % (Manual) % Monocytes % (Manual) % Eosinophils % (Manual) % Metamyelocytes % (Man) % Myelocytes % (Man) % Neutrophils # (Manual) (1.4-6.5) K/uL Total Absolute Neuts (1.4-6.5) K/uL Lymphocytes # (Manual) (1.2-3.4) K/uL Total Abs Lymphocytes (1.2-3.4) K/uL Monocytes # (Manual) (0.11-0.59) K/uL Eosinophils # (Manual) (0-0.5) K/uL Metamyelocytes # (Man) (0-0) K/uL Myelocytes # (Manual) (0-0) K/uL PT (9.0-12.0) Seconds INR (0.9-1.1) APTT (21.0-31.0) Seconds PTT Ratio Specimen Type Sample Site Patient Temperature POC pH POC pCO2 POC pO2 POC HCO3 POC Total CO2 POC Base Excess O2 Sat Pulse Oximetry ABG pH (Temp Correct) ABG pCO2 (Temp Corrct POC ABG pO2 at Pt Temp POC ABG O2 Sat Blue Test Set Respiration Rate O2 Delivery Device POC O2 Rate Minute Ventilation Vent Mode Vent Setting Spontaneous Rate FiO2 (liters per min) POC FiO2 Tidal Volume Spontaneous Tidal Vol End Tidal CO2 PEEP High PEEP Setting Low PEEP Setting Pressure Support POC Pressure Suppt Pressure Support Vent Pressure High Time High Time Low EPAP IPAP POC Blood Gas Comment POC Sodium Sodium (136-145) mmol/L POC Potassium Potassium (3.5-5.1) mmol/L Chloride (98-107) mmol/L Carbon Dioxide (21-32) mmol/L Anion Gap (3-11) BUN (7-18) mg/dl Creatinine (0.6-1.2) mg/dl Est Cr Clr Drug Dosing ml/min Est GFR ( Amer) Est GFR (Non-Af Amer) BUN/Creatinine Ratio (10-20) Glucose (70-99) mg/dl POC Glucose 130 H 156 H 263 H (70-99) mg/dl Calcium (8.5-10.1) mg/dl Phosphorus (2.5-4.9) mg/dl Magnesium (1.8-2.4) mg/dl Total Bilirubin (0.2-1) mg/dl AST (15-37) U/L ALT (12-78) U/L Alkaline Phosphatase (45-117) U/L Total Protein (6.4-8.2) gm/dl Albumin (3.4-5.0) gm/dl Globulin (2.5-4.0) gm/dl Albumin/Globulin Ratio (0.9-2) 09/19/20 Range/Units 04:35 WBC (4.8-10.8) K/uL RBC (4.2-5.4) M/uL Hgb (12.0-16.0) g/dL POC Hgb Cancelled Hct (37-47) % POC Hct Cancelled MCV (80-100) fL MCH (25-34) pg MCHC (32-36) g/dL RDW Std Deviation (36.4-46.3) fL RDW Coeff of Giselle (11.5-14.5) % Plt Count (130-400) K/uL MPV (7.4-10.4) fL Absolute Nucleated RBC (0-0) K/uL Nucleated RBC % (auto) % Neutrophils % (Manual) % Lymphocytes % (Manual) % Monocytes % (Manual) % Eosinophils % (Manual) % Metamyelocytes % (Man) % Myelocytes % (Man) % Neutrophils # (Manual) (1.4-6.5) K/uL Total Absolute Neuts (1.4-6.5) K/uL Lymphocytes # (Manual) (1.2-3.4) K/uL Total Abs Lymphocytes (1.2-3.4) K/uL Monocytes # (Manual) (0.11-0.59) K/uL Eosinophils # (Manual) (0-0.5) K/uL Metamyelocytes # (Man) (0-0) K/uL Myelocytes # (Manual) (0-0) K/uL PT (9.0-12.0) Seconds INR (0.9-1.1) APTT (21.0-31.0) Seconds PTT Ratio Specimen Type Cancelled Sample Site Cancelled Patient Temperature Cancelled POC pH Cancelled POC pCO2 Cancelled POC pO2 Cancelled POC HCO3 Cancelled POC Total CO2 Cancelled POC Base Excess Cancelled O2 Sat Pulse Oximetry Cancelled ABG pH (Temp Correct) Cancelled ABG pCO2 (Temp Corrct Cancelled POC ABG pO2 at Pt Temp Cancelled POC ABG O2 Sat Cancelled Blue Test Cancelled Set Respiration Rate Cancelled O2 Delivery Device Cancelled POC O2 Rate Cancelled Minute Ventilation Cancelled Vent Mode Cancelled Vent Setting Cancelled Spontaneous Rate Cancelled FiO2 (liters per min) Cancelled POC FiO2 Cancelled Tidal Volume Cancelled Spontaneous Tidal Vol Cancelled End Tidal CO2 Cancelled PEEP Cancelled High PEEP Setting Cancelled Low PEEP Setting Cancelled Pressure Support Cancelled POC Pressure Suppt Cancelled Pressure Support Vent Cancelled Pressure High Cancelled Time High Cancelled Time Low Cancelled EPAP Cancelled IPAP Cancelled POC Blood Gas Comment Cancelled POC Sodium Cancelled Sodium (136-145) mmol/L POC Potassium Cancelled Potassium (3.5-5.1) mmol/L Chloride (98-107) mmol/L Carbon Dioxide (21-32) mmol/L Anion Gap (3-11) BUN (7-18) mg/dl Creatinine (0.6-1.2) mg/dl Est Cr Clr Drug Dosing ml/min Est GFR ( Amer) Est GFR (Non-Af Amer) BUN/Creatinine Ratio (10-20) Glucose (70-99) mg/dl POC Glucose (70-99) mg/dl Calcium (8.5-10.1) mg/dl Phosphorus (2.5-4.9) mg/dl Magnesium (1.8-2.4) mg/dl Total Bilirubin (0.2-1) mg/dl AST (15-37) U/L ALT (12-78) U/L Alkaline Phosphatase (45-117) U/L Total Protein (6.4-8.2) gm/dl Albumin (3.4-5.0) gm/dl Globulin (2.5-4.0) gm/dl Albumin/Globulin Ratio (0.9-2) Medications Administered Current Inpatient Medications Acetaminophen (Acetaminophen 325 Mg Tab) 650 mg PO Q4H PRN PRN Reason: Pain or Fever Stop: 10/14/20 13:53 Last Admin: 09/14/20 17:50 Dose: 650 mg Documented by: Albuterol (Albut/Ipratrop 3mg/0.5mg Neb 3 Ml Vial) 3 ml NEB QIDR PRN PRN Reason: Shortness Of Breath Stop: 10/14/20 14:59 Baclofen (Baclofen 10 Mg Tab) 10 mg PO DAILY IAIN Stop: 10/18/20 08:59 Last Admin: 09/20/20 09:49 Dose: 10 mg Documented by: Buspirone HCl (Buspirone 5 Mg Tab) 10 mg PO TID IAIN Stop: 10/17/20 20:59 Last Admin: 09/20/20 13:31 Dose: 10 mg Documented by: Dextrose (Dextrose 50% 50 Ml Syringe) 25 - 50 ml IV UD PRN; Protocol PRN Reason: Hypoglycemia Protocol Stop: 10/14/20 13:53 Docusate Calcium (Docusate Calcium 240 Mg Capsule) 240 mg PO BID IAIN Stop: 10/18/20 20:59 Last Admin: 09/20/20 09:49 Dose: 240 mg Documented by: Enoxaparin Sodium (Enoxaparin Inj 60 Mg/0.6 Ml Syr) 60 mg SQ Q12H [facility] Stop: 10/15/20 08:59 Last Admin: 09/20/20 09:48 Dose: 60 mg Documented by: Famotidine (Famotidine 20 Mg Tab) 20 mg PO BID I[facility] Stop: 10/20/20 20:59 Gabapentin (Gabapentin 300 Mg Cap) 300 mg PO TID [facility] Stop: 10/20/20 13:59 Last Admin: 09/20/20 13:31 Dose: 300 mg Documented by: Glucagon (Glucagon For Inj 1 Mg Vial) 1 mg SQ UD PRN; Protocol PRN Reason: Hypoglycemia Protocol Stop: 10/14/20 13:53 Glucose (Glucose 10 Tabs/Tube) 4 - 8 tabs PO UD PRN; Protocol PRN Reason: Hypoglycemia Protocol Stop: 10/14/20 13:53 Glucose (Glucose 40% Gel 15 Gm Tube) 15 - 30 gm PO UD PRN; Protocol PRN Reason: Hypoglycemia Protocol Stop: 10/14/20 13:53 Dexamethasone Sodium Phosphate (20 mg/ Dextrose) 30 mls @ 0.833 mls/min IV DAILY [facility] Stop: 09/22/20 09:35 Last Infusion: 09/20/20 10:10 Dose: Infused Documented by: Dexamethasone Sodium Phosphate (10 mg/ Syringe) 2.5 mls @ 1 mls/min IV Q24H [facility] Stop: 09/27/20 09:03 Insulin Aspart (Insulin Aspart 100 Units/Ml 3 Ml Pen) 0 units SC Q4H [facility] Stop: 10/17/20 19:59 Last Admin: 09/20/20 12:01 Dose: 15 units Documented by: Insulin Glargine (Insulin Glargine Solostar 100 Units/Ml 3 Ml Pen) 20 units SC BID [facility] Stop: 10/17/20 08:59 Last Admin: 09/20/20 09:50 Dose: 20 units Documented by: Levothyroxine Sodium (Levothyroxine Sodium 50 Mcg Tablet) 50 mcg PO DAILYBB [facility] Stop: 10/15/20 06:29 Last Admin: 09/20/20 07:10 Dose: 50 mcg Documented by: Magnesium Hydroxide (Magnesium Hydroxide Susp 30 Ml Udc) 30 ml PO Q12H PRN PRN Reason: Constipation Stop: 10/14/20 13:53 Miscellaneous (Carbohydrates For Hypoglycemia ) 15 - 30 gm PO UD PRN PRN Reason: Hypoglycemia Protocol Stop: 10/14/20 13:53 Miscellaneous Information (Pharmacy Glycemic Mgmt Consult) 1 ea N/A UD PRN PRN Reason: Consult Stop: 10/15/20 13:24 Ondansetron HCl (Ondansetron Inj 2 Mg/Ml 2 Ml Vial) 4 mg IV Q6H PRN PRN Reason: Nausea Stop: 10/14/20 13:53 Oxcarbazepine (Oxcarbazepine 150 Mg Tablet) 150 mg PO BID@0700,1600 [facility] Stop: 10/14/20 15:59 Last Admin: 09/20/20 07:10 Dose: 150 mg Documented by: Oxcarbazepine (Oxcarbazepine 150 Mg Tablet) 600 mg PO HS [facility] Stop: 10/14/20 20:59 Last Admin: 09/15/20 20:33 Dose: 600 mg Documented by: Polyethylene Glycol (Polyethylene (Miralax) 17 Gm Pack) 17 gm PO DAILY [facility] Stop: 10/18/20 09:14 Last Admin: 09/20/20 09:48 Dose: 17 gm Documented by: Quetiapine Fumarate (Quetiapine Fumarate 200 Mg Tab) 400 mg PO BID [facility] Stop: 10/18/20 08:59 Last Admin: 09/20/20 09:50 Dose: 400 mg Documented by: Sertraline HCl (Sertraline Hcl 50 Mg Tablet) 50 mg PO QAM [facility] Stop: 10/16/20 08:59 Last Admin: 09/20/20 09:49 Dose: 50 mg Documented by: Simvastatin (Simvastatin 10 Mg Tab) 10 mg PO HS [facility] Stop: 10/14/20 20:59 Last Admin: 09/19/20 23:50 Dose: Not Given Documented by: Resident Activity Tracking Resident Involvement: Resident Care Provided Care Provided: Adult Hospital Medicine
[2020-09-20] MEDS: OXcarbazepine 150 MG TABLET PO SCH ×3 (07:10→20:09)
[2020-09-20] MEDS: LEVOTHYROXINE SODIUM 50 MCG TABLET PO SCH (07:10)
[2020-09-20] MEDS: ICU ELECTROLYTE REPLACEMENT PROTOCOL SCH (07:11)
[2020-09-20] MEDS: ENOXAPARIN INJ 60 MG/0.6 ML SYR SQ SCH (09:48)
[2020-09-20] MEDS: POLYETHYLENE (MIRALAX) 17 GM PACK PO SCH (09:48)
[2020-09-20] MEDS: GABAPENTIN 250 MG/5 ML 470 ML BTL PO SCH (09:48)
[2020-09-20] MEDS: FAMOTIDINE 20 MG in SYRINGE 3 ML IV SCH (09:49)
[2020-09-20] MEDS: busPIRone 5 MG TAB PO SCH ×3 (09:49→20:19)
[2020-09-20] MEDS: BACLOFEN 10 MG TAB PO SCH (09:49)
[2020-09-20] MEDS: DEXAMETHASONE SOD PHOSPHATE 20 MG in DEXTROSE 5% 25 ML IV SCH (09:49)
[2020-09-20] MEDS: DOCUSATE CALCIUM 240 MG CAPSULE PO SCH ×2 (09:49→20:09)
[2020-09-20] MEDS: SERTRALINE HCL 50 MG TABLET PO SCH (09:49)
[2020-09-20] MEDS: QUEtiapine FUMARATE 200 MG TAB PO SCH ×2 (09:50→20:09)
[2020-09-20] MEDS: INSULIN GLARGINE SOLOSTAR 100 UNITS/ML 3 ML PEN SC SCH ×2 (09:50→20:32)
[2020-09-20] MEDS ORDERED: METHYLNALTREXONE BROMIDE 12 MG/0.6 ML VIAL SQ ONE (10:00)
--- NOTE | 2020-09-20 11:11 | Pharmacy Report ---
Pharmacy Glycemic Short Note 2 - Date of Service September 20, 2020 - Glycemic Short BSG Results (Last 24 hours): 09/19/20 09/19/20 09/19/20 12:10 15:47 20:46 Glucose POC Glucose 202 H 263 H 156 H 09/19/20 09/20/20 09/20/20 23:29 04:31 04:37 Glucose 95 POC Glucose 130 H 96 09/20/20 07:23 Glucose POC Glucose 117 H OUTPATIENT ANTIDIABETIC REGIMEN: * glimeperide 2mg, metformin 1000 mg BID * A1c 9.0% 09/15 ASSESSMENT: 09/20 * Insulin drip stopped yesterday AM * Patient remains NPO at this time however swallow eval planned today * Dexamethasone 20mg IV daily in the AM continues (Day 3 , before stepping down to 10mg daily) * 60 units SQ insulin administered over last 24 hrs while NPO - will add NPH to ongoing Lantus order to provide additional basal, but also to counter the rise in BSGs observed yesterday following IV dexamethasone despite being NPO * Novolog correction/prandial doses will also be escalated given possibility for PO intake later today and perceived sensitivity to carbs while on steroid 09/19 * BSGs well controlled on insulin drip this AM * Patient has been extubated, tube feeds have been stopped, IV dexamethasone continues however * Patient will be NPO today, swallow eval possible tomorrow AM * Will hold insulin drip until noon-time and reassess control off insulin drip. Lantus dosing has been increased to "severe" stress wt-based dosing. * If it appears patient can be managed w/o insulin drip, will convert Novolog to Q 4 hr dosing with "severe" stress CF and CR 09/18 * BSGs trended up throughout the day yesterday, 130, 218, 307, 312 mg/dL * Insulin infusion initiated around dinnertime and has been infusing since that time * BSGs consistently in 100-200 mg/dL range this morning, but increased significantly with increase in dexamethasone this morning * Will plan to continue insulin infusion today and provide steroid-induced hyperglycemia with NPH * Dexamethasone increased to 20 mg IV daily x 5 days, followed by 10 mg daily x 5 days per [facility] protocol * NPH 0.4 unit/kg based on adjusted body weight to start * Peptamen intense currently infusing at 50 mL/hr providing ~16 g CHO over 4 mone r period 09/17 * Insulin infusion transitioned to SC insulin yesterday * Patient received 30 units of Lantus and 2 units of Novolog (32 units total) * Continues on dexamethasone 6 mg IV * Will utilize ICU protocol q4h with corresponding Lantus 13 units SC BID * Instructions to cover tube feeds added to Novolog order * K+: 3.3 this morning - given 80 mEq of KCl PO * Lunch BSG of 307 mg/dL -> if still uncontrolled at 1600 check will consider IV insulin bolus vs. insulin gtt PLAN FOR INPATIENT GLYCEMIC CONTROL: * Hold insulin infusion this AM, recheck BSG at 1200 - will then determine if drip needs resumed * Basal insulin * Lantus 20 units BID * Add NPH 15 units x 1 with noon BSG check - will add 35 units daily in the AM w/ IV dexamethasone if pt tolerates diet * Bolus insulin * NovoLog per scale q4h * Goal Range: Low 110 - High 140 mg/dL * Correction Factor: 12mg/dL/unit * Nutritional / Prandial insulin per carb ratio of 1 unit per 4 grams CHO consumed
[2020-09-20] MEDS ORDERED: INSULIN HUMAN NPH SC ONE ×2 (12:00)
[2020-09-20] MEDS: GABAPENTIN 300 MG CAP PO SCH ×2 (13:31→20:13)
[2020-09-20] MEDS: fentaNYL DRIP 1,250 MCG/250 ML BAG IV SCH (13:49)
--- NOTE | 2020-09-20 16:57 | Hospitalist Progress Note ---
Date of Service September 20, 2020 Assessment & Plan (1) Pneumonia due to 2019 novel coronavirus: Hypoxia to the 70s in the ED. COVID + on 09/08 with random screening, sx started 09/10. - Started on dexa and inhalers from the ED on 09/12, not hypoxic at that time - Continue with dexamethasone, now on high dose ARDSnet protocol 20 mg daily x 5d then 10 mg daily x 5 d. Remdesivir completed. - Extubated on 09/19. - Continue supportive care -> Still on 6L today, though able to go down to 2L temporarily, but with eventual hypoxemia. Wean O2 as able. (2) Anemia: 10.6 on admission, stable. Likely some iron deficiency. - Will get anemia labs tomorrow (3) Diabetes: A1c was 9.0% this admission. - Holding metformin due to IV contrast - Significant hyperglycemia due to dexamethasone, now with glycemic pharmacy control -> Now on basal/bolus. Blood sugars 95 - 200. (4) Hypothyroid: No TSH in chart. - Continue Synthroid 50 mcg a day - Get TSH once out of the ICU (5) HTN (hypertension): BP is 160/95 presently. - Prazosin and propranolol on hold if rebound tachycardia will use prn metoprolol (6) GERD (gastroesophageal reflux disease): No report of GERD today. - Continue famotidine PO (7) Hypercholesterolemia: - Continue simvastatin (8) Mood disorder: - Will adjust as needed once respiratory status stable. (9) Morbid obesity with BMI of 40.0-44.9, adult: Encourage weight loss. (10) DVT prophylaxis: Lovenox 60 mg SQ daily Admission and Anticipated Discharge Date Admission Date: September 14, 2020 Subjective Feels "agitated" today. Also reports being "frustrated" with the situation. Asks if I can get her out of the hospital. Reports no fevers/chills, chest pain, shortness of breath, abdominal pain, nausea, or vomiting. Physical Exam Constitutional: WD/WN, vitals as above no acute distress Eyes: EOM intact bilaterally; no conjunctival abnormality ENMT: external ear and nose normal, oropharynx normal Neck: trachea midline, no thyromegaly normal visual inspection Respiratory: + labored breathing; no respiratory distress and not tachypneic Auscultation: + crackles; no wheezes Cardiovascular: RRR, no murmur, no edema Gastrointestinal (Abdomen): Inspection/Auscultation: abdomen normal to inspection; abdomen not distended Musculoskeletal: no cyanosis or clubbing, extremities motor strength 5/5 Skin: no rashes, warm and dry Neurologic: moves all extremities and awake Psychiatric: Orientation: alert, oriented to person and cooperative Results & Data Results & Data ([facility]) Vital Signs (Past 12 Hours) Vital Signs Temp Pulse Pulse Resp BP BP Pulse Ox 09/20/20 13:34 37.1 C 92 H 18 158/94 H 93 09/20/20 13:00 37.2 C 91 H 20 93 09/20/20 12:40 37.1 C 99 H 28 H 144/88 H 94 09/20/20 12:00 37.1 C 97 H 19 92 09/20/20 11:40 37.0 C 106 H 17 138/87 93 09/20/20 11:03 36.8 C 116 H 28 H 149/89 H 92 09/20/20 11:00 36.8 C 87 19 91 09/20/20 10:40 36.9 C 103 H 21 148/70 H 91 09/20/20 10:00 37.1 C 99 H 22 95 09/20/20 09:40 37.0 C 96 H 18 136/103 H 96 09/20/20 09:00 37.0 C 96 H 15 95 09/20/20 08:40 37.1 C 86 18 150/92 H 95 09/20/20 08:00 37.1 C 92 H 19 94 09/20/20 07:40 37.1 C 89 23 138/98 93 09/20/20 07:31 37.1 C 91 H 22 153/95 H 93 09/20/20 07:00 37.1 C 92 H 93 09/20/20 06:45 37.1 C 97 H 91 09/20/20 06:00 37.2 C 93 H 93 09/20/20 05:40 37.2 C 90 18 131/88 93 09/20/20 05:00 37.2 C 90 94 PG Care Time/CCT Total # of Minutes Spent Total Time Spent with Patient: Total time spent is greater than 50% in coordination of care (as documented) at patient's floor/unit and/or counseling patient: Coding Level of Care Code 00995 Subseq Hosp Care Lvl 3 Diagnoses Pneumonia due to 2019 novel coronavirus U07.1; J12.82 Anemia D64.9 Diabetes E11.9 Hypothyroid E03.9 HTN (hypertension) I10 GERD (gastroesophageal reflux disease) K21.9 Hypercholesterolemia E78.00 Mood disorder F39 Morbid obesity with BMI of 40.0-44.9, adult E66.01; Z68.41 DVT prophylaxis Z29.9
[2020-09-20] MEDS: ACETAMINOPHEN 325 MG TAB PO PRN (17:03)
[2020-09-20] MEDS: SIMVASTATIN 10 MG TAB PO SCH (20:09)
[2020-09-20] MEDS: FAMOTIDINE 20 MG TAB PO SCH (20:09)
[2020-09-21] MEDS: INSULIN ASPART 100 UNITS/ML 3 ML PEN SC SCH ×6 (00:48→20:25)
[2020-09-21] MEDS: LEVOTHYROXINE SODIUM 50 MCG TABLET PO SCH (06:21)
[2020-09-21] MEDS: OXcarbazepine 150 MG TABLET PO SCH ×3 (06:21→20:16)
[2020-09-21] MEDS: POLYETHYLENE (MIRALAX) 17 GM PACK PO SCH (08:17)
[2020-09-21] MEDS: GABAPENTIN 300 MG CAP PO SCH ×3 (08:18→20:15)
[2020-09-21] MEDS: ENOXAPARIN INJ 60 MG/0.6 ML SYR SQ SCH (08:18)
[2020-09-21] MEDS: dexAMETHasone 4 MG TAB PO SCH (08:18)
[2020-09-21] MEDS: FAMOTIDINE 20 MG TAB PO SCH ×2 (08:18→20:15)
[2020-09-21] MEDS: ACETAMINOPHEN 325 MG TAB PO PRN (08:18)
[2020-09-21] MEDS: QUEtiapine FUMARATE 200 MG TAB PO SCH ×2 (08:18→20:15)
[2020-09-21] MEDS: BACLOFEN 10 MG TAB PO SCH (08:19)
[2020-09-21] MEDS: SERTRALINE HCL 50 MG TABLET PO SCH (08:19)
[2020-09-21] MEDS: busPIRone 5 MG TAB PO SCH ×3 (08:20→20:15)
[2020-09-21] MEDS: DOCUSATE CALCIUM 240 MG CAPSULE PO SCH ×2 (08:20→20:15)
[2020-09-21 08:54] LABS: Folate (Folic Acid) 18.3 ng/ml (>5.38)
[2020-09-21] MEDS ORDERED: INSULIN HUMAN NPH SC SCH ×2 (09:00)
[2020-09-21] MEDS: INSULIN GLARGINE SOLOSTAR 100 UNITS/ML 3 ML PEN SC SCH ×2 (09:42→20:25)
--- NOTE | 2020-09-21 11:11 | Pharmacy Report ---
Pharmacy Glycemic Short Note 2 - Date of Service September 21, 2020 - Glycemic Short BSG Results (Last 24 hours): 09/20/20 09/20/20 09/20/20 11:55 16:54 16:59 POC Glucose 261 H 303 H* 289 H 09/20/20 09/21/20 09/21/20 20:03 00:43 04:27 POC Glucose 186 H 130 H 112 H 09/21/20 07:47 POC Glucose 121 H OUTPATIENT ANTIDIABETIC REGIMEN: * glimeperide 2mg, metformin 1000 mg BID * A1c 9.0% 09/15 ASSESSMENT: 09/20 * BSGs did climb rapidly following performance of swallow eval and advancement of diet * Dexamethasone has been changed to PO and dose has been reduced. Given the uncertain response to the change in steroid will be cautious with AM NPH dose initially, however if BSG begins to climb quickly - will give additional NPH w/ lunch if needed * Fasting BSG at goal with 40 Lantus on board and w/ receipt of 15 units NPH yesterday * Novolog meal time doses will be kept at the same intensity this AM w/ reassessment later today given recent steroid change 09/20 * Insulin drip stopped yesterday AM * Patient remains NPO at this time however swallow eval planned today * Dexamethasone 20mg IV daily in the AM continues (Day 3 of , before stepping down to 10mg daily) * 60 units SQ insulin administered over last 24 hrs while NPO - will add NPH to ongoing Lantus order to provide additional basal, but also to counter the rise in BSGs observed yesterday following IV dexamethasone despite being NPO * Novolog correction/prandial doses will also be escalated given possibility for PO intake later today and perceived sensitivity to carbs while on steroid 09/19 * BSGs well controlled on insulin drip this AM * Patient has been extubated, tube feeds have been stopped, IV dexamethasone continues however * Patient will be NPO today, swallow eval possible tomorrow AM * Will hold insulin drip until noon-time and reassess control off insulin drip. Lantus dosing has been increased to "severe" stress wt-based dosing. * If it appears patient can be managed w/o insulin drip, will convert Novolog to Q 4 hr dosing with "severe" stress CF and CR 09/18 * BSGs trended up throughout the day yesterday, 130, 218, 307, 312 mg/dL * Insulin infusion initiated around dinnertime and has been infusing since that time * BSGs consistently in 100-200 mg/dL range this morning, but increased significantly with increase in dexamethasone this morning * Will plan to continue insulin infusion today and provide steroid-induced hyperglycemia with NPH * Dexamethasone increased to 20 mg IV daily x 5 days, followed by 10 mg daily x 5 days per ARDS protocol * NPH 0.4 unit/kg based on adjusted body weight to start * Peptamen intense currently infusing at 50 mL/hr providing ~16 g CHO over 4 hour period 09/17 * Insulin infusion transitioned to SC insulin yesterday * Patient received 30 units of Lantus and 2 units of Novolog (32 units total) * Continues on dexamethasone 6 mg IV * Will utilize ICU protocol q4h with corresponding Lantus 13 units SC BID * Instructions to cover tube feeds added to Novolog order * K+: 3.3 this morning - given 80 mEq of KCl PO * Lunch BSG of 307 mg/dL -> if still uncontrolled at 1600 check will consider IV insulin bolus vs. insulin gtt PLAN FOR INPATIENT GLYCEMIC CONTROL: * Hold insulin infusion this AM, recheck BSG at 1200 - will then determine if drip needs resumed * Basal insulin * Lantus 20 units BID * NPH 15 units SQ QAM w/ PO dexamethasone 10mg administration * Bolus insulin * NovoLog per scale q4h * Goal Range: Low 110 - High 140 mg/dL * Correction Factor: 12mg/dL/unit * Nutritional / Prandial insulin per carb ratio of 1 unit per 4 grams CHO consumed
--- NOTE | 2020-09-21 14:26 | Hospitalist Progress Note ---
Date of Service September 21, 2020 Assessment & Plan (1) Pneumonia due to 2019 novel coronavirus: Hypoxia to the 70s in the ED. COVID + on 09/08 with random screening, sx started 09/10. - Started on dexa and inhalers from the ED on 09/12, not hypoxic at that time - Continue with dexamethasone, now on high dose ARDSnet protocol. Down to 10 mg PO daily. Finish dexamethasone on 09/24/2020. Remdesivir completed. - Extubated on 09/19. - Continue supportive care -> Down to 4L today. At 3L, her O2 sat stayed around 89%. Will get PT/OT to minimize atelectasis. (2) Anemia: 10.6 on admission, stable. Likely some anemia of illness. Iron labs on the low-normal end. B12/folate were normal. - Monitor (3) Diabetes: A1c was 9.0% this admission. - Holding metformin due to IV contrast - Significant hyperglycemia due to dexamethasone, now with glycemic pharmacy control -> Now on basal/bolus. Blood sugars 95 - 270. (4) Hypothyroid: TSH was 2.1 in 05/2020. - Continue Synthroid 50 mcg a day (5) HTN (hypertension): BP is 145/80 presently. - Prazosin and propranolol on hold if rebound tachycardia will use prn metoprolol (6) GERD (gastroesophageal reflux disease): No report of GERD today. - Continue famotidine PO (7) Hypercholesterolemia: - Continue simvastatin (8) Mood disorder: Mood stable today. Somewhat more hopeful given her improvement. - Will adjust as needed (9) Morbid obesity with BMI of 40.0-44.9, adult: Encourage weight loss. (10) DVT prophylaxis: Lovenox 60 mg SQ daily Admission and Anticipated Discharge Date Admission Date: September 14, 2020 Subjective Somewhat better today. Calmer, less anxious. Still wants to go back to [facility]. Reports no fevers/chills, chest pain, shortness of breath, abdominal pain, nausea, or vomiting. Physical Exam Constitutional: WD/WN, vitals as above no acute distress Eyes: EOM intact bilaterally; no conjunctival abnormality ENMT: external ear and nose normal, oropharynx normal Neck: trachea midline, no thyromegaly normal visual inspection Respiratory: + labored breathing; no respiratory distress and not tachypneic Auscultation: + crackles; no wheezes Cardiovascular: RRR, no murmur, no edema Gastrointestinal (Abdomen): Inspection/Auscultation: abdomen normal to inspection; abdomen not distended Musculoskeletal: no cyanosis or clubbing, extremities motor strength 5/5 Skin: no rashes, warm and dry Neurologic: moves all extremities and awake Psychiatric: Orientation: alert, oriented to person and cooperative Results & Data Results & Data ([facility]) Vital Signs (Past 12 Hours) Vital Signs Temp Pulse Resp BP Pulse Ox 09/21/20 09:36 36.9 C 120 H 18 146/80 H 91 PG Care Time/CCT Total # of Minutes Spent Total Time Spent with Patient: Total time spent is greater than 50% in coordination of care (as documented) at patient's floor/unit and/or counseling patient: Coding Level of Care Code 73788 Subseq Hosp Care Lvl 3 Diagnoses Pneumonia due to 2019 novel coronavirus U07.1; J12.82 Anemia D64.9 Diabetes E11.9 Hypothyroid E03.9 HTN (hypertension) I10 GERD (gastroesophageal reflux disease) K21.9 Hypercholesterolemia E78.00 Mood disorder F39 Morbid obesity with BMI of 40.0-44.9, adult E66.01; Z68.41 DVT prophylaxis Z29.9
--- NOTE | 2020-09-21 16:13 | Electrocardiogram Report ---
Test Reason : Blood Pressure : / mmHG Vent. Rate : 101 BPM Atrial Rate : 101 BPM P-R Int : 158 ms QRS Dur : 076 ms QT Int : 330 ms P-R-T Axes : 020 041 -24 degrees QTc Int : 427 ms Sinus tachycardia Poor R wave progression, consider anterior NV vs. lead placement vs. LVH Nonspecific T wave abnormality Abnormal ECG When compared with ECG of 18-SEP-2020 09:07, Inverted T waves have replaced nonspecific T wave abnormality in Inferior leads Nonspecific T wave abnormality now evident in Lateral leads Confirmed by Ender Howell ([id number]) on 09/21/2020 4:12:44 PM Referred By: REFERRED SELF Confirmed By:Ender Howell
[2020-09-21] MEDS: SENNA 8.6 MG TAB PO SCH (19:00)
[2020-09-21] MEDS: traMADol HCL 50 MG TABLET PO PRN (19:00)
[2020-09-21] MEDS: SIMVASTATIN 10 MG TAB PO SCH (20:15)
[2020-09-22] MEDS: INSULIN ASPART 100 UNITS/ML 3 ML PEN SC SCH ×7 (00:54→23:34)
[2020-09-22] MEDS: OXcarbazepine 150 MG TABLET PO SCH ×3 (06:19→20:15)
[2020-09-22] MEDS: LEVOTHYROXINE SODIUM 50 MCG TABLET PO SCH (06:19)
[2020-09-22] MEDS: ENOXAPARIN INJ 60 MG/0.6 ML SYR SQ SCH (08:19)
[2020-09-22] MEDS: QUEtiapine FUMARATE 200 MG TAB PO SCH ×2 (08:19→20:13)
[2020-09-22] MEDS: POLYETHYLENE (MIRALAX) 17 GM PACK PO SCH (08:19)
[2020-09-22] MEDS: DOCUSATE CALCIUM 240 MG CAPSULE PO SCH ×2 (08:20→20:14)
[2020-09-22] MEDS: FAMOTIDINE 20 MG TAB PO SCH ×2 (08:20→20:14)
[2020-09-22] MEDS: GABAPENTIN 300 MG CAP PO SCH ×3 (08:20→20:15)
[2020-09-22] MEDS: busPIRone 5 MG TAB PO SCH ×3 (08:20→20:13)
[2020-09-22] MEDS: SERTRALINE HCL 50 MG TABLET PO SCH (08:21)
[2020-09-22] MEDS: dexAMETHasone 4 MG TAB PO SCH (08:21)
[2020-09-22] MEDS: SENNA 8.6 MG TAB PO SCH (08:22)
[2020-09-22] MEDS: BACLOFEN 10 MG TAB PO SCH (08:24)
[2020-09-22] MEDS: traMADol HCL 50 MG TABLET PO PRN (08:47)
[2020-09-22] MEDS ORDERED: INSULIN HUMAN NPH SC SCH ×2 (09:00)
[2020-09-22] MEDS: INSULIN GLARGINE SOLOSTAR 100 UNITS/ML 3 ML PEN SC SCH (09:38)
--- NOTE | 2020-09-22 11:28 | Pharmacy Report ---
Pharmacy Glycemic Short Note 2 - Date of Service September 22, 2020 - Glycemic Short BSG Results (Last 24 hours): 09/21/20 09/21/20 09/21/20 11:59 15:59 19:11 POC Glucose 270 H 271 H 159 H 09/22/20 09/22/20 09/22/20 00:16 04:00 07:59 POC Glucose 128 H 113 H 126 H OUTPATIENT ANTIDIABETIC REGIMEN: * glimeperide 2mg, metformin 1000 mg BID * A1c 9.0% 09/15 ASSESSMENT: 09/22 * BSGs did climb following administration of PO dexamethasone 10mg yesterday. BSGs peaking mid-day in the 270s. - will continue to up-titrate NPH * Fasting BSG at goal today with 40 units Lantus on board as after receiving 15 units NPH yesterday. Will decrease HS Lantus dose due to larger NPH dose today. 09/21 * BSGs did climb rapidly following performance of swallow eval and advancement of diet * Dexamethasone has been changed to PO and dose has been reduced. Given the uncertain response to the change in steroid will be cautious with AM NPH dose initially, however if BSG begins to climb quickly - will give additional NPH w/ lunch if needed * Fasting BSG at goal with 40 Lantus on board and w/ receipt of 15 units NPH yesterday * Novolog meal time doses will be kept at the same intensity this AM w/ reassessment later today given recent steroid change 09/20 * Insulin drip stopped yesterday AM * Patient remains NPO at this time however swallow eval planned today * Dexamethasone 20mg IV daily in the AM continues (Day 3 of , before stepping down to 10mg daily) * 60 units SQ insulin administered over last 24 hrs while NPO - will add NPH to ongoing Lantus order to provide additional basal, but also to counter the rise in BSGs observed yesterday following IV dexamethasone despite being NPO * Novolog correction/prandial doses will also be escalated given possibility for PO intake later today and perceived sensitivity to carbs while on steroid 09/19 * BSGs well controlled on insulin drip this AM * Patient has been extubated, tube feeds have been stopped, IV dexamethasone continues however * Patient will be NPO today, swallow eval possible tomorrow AM * Will hold insulin drip until noon-time and reassess control off insulin drip. Lantus dosing has been increased to "severe" stress wt-based dosing. * If it appears patient can be managed w/o insulin drip, will convert Novolog to Q 4 hr dosing with "severe" stress CF and CR PLAN FOR INPATIENT GLYCEMIC CONTROL: * Basal insulin * Lantus 20 units AM + 15 HS * NPH 30 units SQ QAM w/ PO dexamethasone 10mg administration * Bolus insulin * NovoLog per scale q4h * Goal Range: Low 110 - High 140 mg/dL * Correction Factor: 12mg/dL/unit * Nutritional / Prandial insulin per carb ratio of 1 unit per 3 grams CHO consumed
--- NOTE | 2020-09-22 12:27 | Hospitalist Progress Note ---
Date of Service September 22, 2020 Assessment & Plan (1) Pneumonia due to 2019 novel coronavirus: Hypoxia to the 70s in the ED. COVID + on 09/08 with random screening, sx started 09/10. - Started on dexa and inhalers from the ED on 09/12, not hypoxic at that time - Continue with dexamethasone, now on high dose ARDSnet protocol. Down to 10 mg PO daily. Finish dexamethasone on 09/24/2020. Remdesivir completed. - Extubated on 09/19. - Continue supportive care -> Down to 3L today. Will remove Bacon today and attempt to get her out of bed to see how she does with movement. (2) Anemia: 10.6 on admission, stable. Likely some anemia of illness. Iron labs on the low-normal end. B12/folate were normal. - Monitor (3) Diabetes: A1c was 9.0% this admission. - Holding metformin - Significant hyperglycemia due to dexamethasone, now with glycemic pharmacy control -> Now on basal/bolus. Blood sugars 115 - 270. (4) Hypothyroid: TSH was 2.1 in 05/2020. - Continue Synthroid 50 mcg a day = Will recheck tomorrow. (5) HTN (hypertension): BP is 125/80 presently. - Prazosin and propranolol on hold if rebound tachycardia will use prn metoprolol (6) GERD (gastroesophageal reflux disease): No report of GERD today. - Continue famotidine PO (7) Hypercholesterolemia: - Continue simvastatin (8) Mood disorder: Mood stable today. Somewhat more hopeful given her improvement. - Will adjust as needed (9) Morbid obesity with BMI of 40.0-44.9, adult: Encourage weight loss. (10) DVT prophylaxis: Lovenox 60 mg SQ daily Admission and Anticipated Discharge Date Admission Date: September 14, 2020 Subjective Feeling better today. Reports no fevers/chills, chest pain, shortness of breath, abdominal pain, nausea, or vomiting. Physical Exam Constitutional: WD/WN, vitals as above no acute distress Eyes: EOM intact bilaterally; no conjunctival abnormality ENMT: external ear and nose normal, oropharynx normal Neck: trachea midline, no thyromegaly normal visual inspection Respiratory: no respiratory distress, no labored breathing and not tachypneic Auscultation: + crackles; no wheezes Cardiovascular: RRR, no murmur, no edema Gastrointestinal (Abdomen): Inspection/Auscultation: abdomen normal to inspection; abdomen not distended Musculoskeletal: no cyanosis or clubbing, extremities motor strength 5/5 Skin: no rashes, warm and dry Neurologic: moves all extremities and awake Psychiatric: Orientation: alert, oriented to person and cooperative Results & Data Results & Data ([facility]) Vital Signs (Past 12 Hours) Vital Signs Temp Pulse Resp BP Pulse Ox 09/22/20 10:12 92 09/22/20 08:49 90 09/22/20 08:08 36.7 C 94 H 18 126/83 93 PG Care Time/CCT Total # of Minutes Spent Total Time Spent with Patient: Total time spent is greater than 50% in coordination of care (as documented) at patient's floor/unit and/or counseling patient: Coding Level of Care Code 11895 Subseq Hosp Care Lvl 2 Diagnoses Pneumonia due to 2019 novel coronavirus U07.1; J12.82 Anemia D64.9 Diabetes E11.9 Hypothyroid E03.9 HTN (hypertension) I10 GERD (gastroesophageal reflux disease) K21.9 Hypercholesterolemia E78.00 Mood disorder F39 Morbid obesity with BMI of 40.0-44.9, adult E66.01; Z68.41 DVT prophylaxis Z29.9
[2020-09-22] MEDS: SIMVASTATIN 10 MG TAB PO SCH (20:14)
[2020-09-22] MEDS ORDERED: INSULIN GLARGINE SOLOSTAR 100 UNITS/ML 3 ML PEN SC SCH (21:00)
[2020-09-23] MEDS: INSULIN ASPART 100 UNITS/ML 3 ML PEN SC SCH ×3 (03:34→12:52)
[2020-09-23] MEDS: LEVOTHYROXINE SODIUM 50 MCG TABLET PO SCH (06:06)
[2020-09-23] MEDS: OXcarbazepine 150 MG TABLET PO SCH (06:06)
[2020-09-23 06:14] LABS: Hematocrit (blood only) 34.6 % (37-47); Hemoglobin 10.7 g/dL (12.0-16.0); Mean Corpuscular Hemoglobin 27.4 pg (25-34); Mean Corpuscular Hgb Conc 30.9 g/dL (32-36); Mean Corpuscular Volume 88.5 fL (80-100); Mean Platelet Volume 10.5 fL (7.4-10.4); Platelet Count 317 K/uL (130-400); RDW Coefficient of Variation 15.4 % (11.5-14.5); RDW Standard Deviation 48.2 fL (36.4-46.3); Red Blood Count 3.91 M/uL (4.2-5.4); White Blood Count 13.63 K/uL (4.8-10.8)
[2020-09-23 07:15] LABS: BUN Creatinine Ratio 27.3 (10-20); Calcium 9.3 mg/dl (8.5-10.1); Creatinine Clr Calc Pharmacy 127.5 ml/min; Est GFR (African American) 114.5; Est GFR (Non-African American) 98.8; Potassium 3.7 mmol/L (3.5-5.1); Thyroid Stimulating Hormone 1.04 uIu/ml (0.300-4.500)
[2020-09-23] MEDS: DOCUSATE CALCIUM 240 MG CAPSULE PO SCH (08:41)
[2020-09-23] MEDS: POLYETHYLENE (MIRALAX) 17 GM PACK PO SCH (08:41)
[2020-09-23] MEDS: GABAPENTIN 300 MG CAP PO SCH ×2 (08:41→14:06)
[2020-09-23] MEDS: QUEtiapine FUMARATE 200 MG TAB PO SCH (08:42)
[2020-09-23] MEDS: FAMOTIDINE 20 MG TAB PO SCH (08:42)
[2020-09-23] MEDS: ENOXAPARIN INJ 60 MG/0.6 ML SYR SQ SCH (08:43)
[2020-09-23] MEDS: busPIRone 5 MG TAB PO SCH ×2 (08:57→14:06)
[2020-09-23] MEDS: SERTRALINE HCL 50 MG TABLET PO SCH (08:57)
[2020-09-23] MEDS: dexAMETHasone 4 MG TAB PO SCH (08:58)
[2020-09-23] MEDS ORDERED: INSULIN HUMAN NPH SC SCH (09:00)
[2020-09-23] MEDS ORDERED: DEXAMETHASONE SOD PHOSPHATE 10 MG in SYRINGE 0 ML IV SCH (09:00)
[2020-09-23] MEDS ORDERED: INSULIN GLARGINE SOLOSTAR 100 UNITS/ML 3 ML PEN SC SCH ×2 (09:00→21:00)
[2020-09-23] MEDS: BACLOFEN 10 MG TAB PO SCH (09:02)
--- NOTE | 2020-09-23 12:43 | Pharmacy Report ---
Pharmacy Glycemic Short Note 2 - Date of Service September 23, 2020 - Glycemic Short BSG Results (Last 24 hours): 09/22/20 09/22/20 09/22/20 15:54 20:13 23:29 Glucose POC Glucose 281 H 151 H 118 H 09/23/20 09/23/20 09/23/20 05:56 08:00 12:08 Glucose 91 POC Glucose 110 H 188 H OUTPATIENT ANTIDIABETIC REGIMEN: * glimeperide 2mg, metformin 1000 mg BID * A1c 9.0% 09/15 ASSESSMENT: 09/23 * Mid-day hyperglycemia again problematic yesterday. Continue to uptitrate NPH in AM with PO dexamethasone. Novolog carb ratio will be adjusted as well to increase meal time doses. Will scale down HS Lantus dose given the larger NPH dose 09/22 * BSGs did climb following administration of PO dexamethasone 10mg yesterday. BSGs peaking mid-day in the 270s. - will continue to up-titrate NPH * Fasting BSG at goal today with 40 units Lantus on board as after receiving 15 units NPH yesterday. Will decrease HS Lantus dose due to larger NPH dose today. 2 * BSGs did climb rapidly following performance of swallow eval and advancement of diet * Dexamethasone has been changed to PO and dose has been reduced. Given the uncertain response to the change in steroid will be cautious with AM NPH dose initially, however if BSG begins to climb quickly - will give additional NPH w/ lunch if needed * Fasting BSG at goal with 40 Lantus on board and w/ receipt of 15 units NPH yesterday * Novolog meal time doses will be kept at the same intensity this AM w/ reassessment later today given recent steroid change 2/ * Insulin drip stopped yesterday AM * Patient remains NPO at this time however swallow eval planned today * Dexamethasone 20mg IV daily in the AM continues (Day 3 , before stepping down to 10mg daily) * 60 units SQ insulin administered over last 24 hrs while NPO - will add NPH to ongoing Lantus order to provide additional basal, but also to counter the rise in BSGs observed yesterday following IV dexamethasone despite being NPO * Novolog correction/prandial doses will also be escalated given possibility for PO intake later today and perceived sensitivity to carbs while on steroid 09/19 * BSGs well controlled on insulin drip this AM * Patient has been extubated, tube feeds have been stopped, IV dexamethasone continues however * Patient will be NPO today, swallow eval possible tomorrow AM * Will hold insulin drip until noon-time and reassess control off insulin drip. Lantus dosing has been increased to "severe" stress wt-based dosing. * If it appears patient can be managed w/o insulin drip, will convert Novolog to Q 4 hr dosing with "severe" stress CF and CR PLAN FOR INPATIENT GLYCEMIC CONTROL: * Basal insulin * Lantus 20 units AM + 8 HS * NPH 45 units SQ QAM w/ PO dexamethasone 10mg administration * Bolus insulin * NovoLog per scale q4h * Goal Range: Low 110 - High 140 mg/dL * Correction Factor: 12mg/dL/unit * Nutritional / Prandial insulin per carb ratio of 1 unit per 2.5 grams CHO consumed
--- NOTE | 2020-09-23 17:02 | Discharge Summary ---
Date of Service September 23, 2020 Admission HPI Per Admitting Provider 39 y/o F c/o worsening SOB. Pt tested positive on 09/08 during a random screening. She started to have SOB and cough on 09/10. She was seen in the ED on 09/12 for worsening SOB and cough. She was maintaining her O2 sats at that time and d/c'd back to intermediate with dexamethasone. Pt has also been using an inhaler since that time. Over the last two days she has had worsening SOB to the point where if she moves at all she is SOB. Not SOB at rest. She was noted to be in the 80s at the intermediate and in the 70s in the ED today. She feels chest tightness with the SOB, but no srinivasa chest pain. She has not had much of an appetite the last few days due to nausea, but she does feel hungry now. No emesis. She has had diarrhea. Pt denies fever, abd pain, LE pain or swelling. Principal Diagnosis Covid-19 Discharge Exam Constitutional WD/WN, vitals as above no acute distress Eyes EOM intact bilaterally; no conjunctival abnormality ENMT external ear and nose normal, oropharynx normal Neck trachea midline, no thyromegaly normal visual inspection Respiratory no respiratory distress, no labored breathing and not tachypneic Auscultation: + crackles; no wheezes Cardiovascular RRR, no murmur, no edema Gastrointestinal (Abdomen) Inspection/Auscultation: abdomen normal to inspection; abdomen not distended Musculoskeletal no cyanosis or clubbing, extremities motor strength 5/5 Skin no rashes, warm and dry Neurologic moves all extremities and awake Psychiatric Orientation: alert, oriented to person and cooperative Discharge Data Allergies Allergy/AdvReac Type Severity Reaction Status Date / Time cephalexin [From Keflex] Allergy Severe Unknown Verified 09/14/20 17:54 ketorolac [From Toradol] Allergy Severe Unknown Verified 09/14/20 17:54 Penicillins Allergy Severe Unknown Verified 09/14/20 17:54 latex Allergy Mild Unknown Verified 09/14/20 17:54 Consultations 09/14/20 12:41 ED Decision to Admit Stat 09/15/20 18:06 Consult Director Of Procurement Routine Ordered Studies 09/14/20 11:07 CT angio chest PE protocol Stat Hospital Course (1) Pneumonia due to 2019 novel coronavirus: Hypoxia to the 70s in the ED. COVID + on 09/08 with random screening, sx started 09/10. - Started on dexa and inhalers from the ED on 09/12, not hypoxic at that time - Continue with dexamethasone, now on high dose ARDSnet protocol. Down to 10 mg PO daily. Finish dexamethasone on 09/24/2020. Remdesivir completed. - Extubated on 09/19. - Continue supportive care -> Down to room air at rest, but 3L with exertion. Discharged on last days of steroid taper and NPH insulin for while she is on the steroids. (2) Anemia: 10.6 on admission, stable. Likely some anemia of illness. Iron labs on the low-normal end. B12/folate were normal. - Monitor (3) Diabetes: A1c was 9.0% this admission. - Holding metformin - Significant hyperglycemia due to dexamethasone, now with glycemic pharmacy control -> Now on basal/bolus. Blood sugars 115 - 270. (4) Hypothyroid: TSH was 2.1 in 05/2020. TSH was 1.0 this admission. - Continue Synthroid 50 mcg a day (5) HTN (hypertension): BP is 125/80 presently. - Prazosin and propranolol on hold if rebound tachycardia will use prn metoprolol (6) GERD (gastroesophageal reflux disease): No report of GERD today. - Continue famotidine PO (7) Hypercholesterolemia: - Continue simvastatin (8) Mood disorder: Mood stable today. Somewhat more hopeful given her improvement. - Will adjust as needed (9) Morbid obesity with BMI of 40.0-44.9, adult: Encourage weight loss. (10) DVT prophylaxis: Lovenox 60 mg SQ daily Total Time Total Time Spent Total Time Spent (In Minutes): 35 Discharge Plan Discharge Items [facility] Disposition[facility] Reason For Visit: HYPOXIA Discharge Diagnosis: Covid-19 pneumonia Activity: Resume your previous activity Non-emergency contact: Primary Care Provider Call non-emergency contact if: your symptoms worsen Follow-up/Referrals: [facility] [Primary Care Provider] - Diet: Carb Consistent or DM2 Addtl Attending Provider Instructions: Ms. Galaviz was admitted for Covid-19 pneumonia. She required intubation for several days, but was extubated and is now stable on low levels of O2. She tolerates being on room air at rest with O2 sat ~91 - 92%. With ambulation/exertion, she requires 3L NC O2 to stay above 90% O2 sat. She finished remdesivir and is on a tapered dose of dexamethasone. She will need dexamethasone 6 mg for 3 more days. While on dexamethasone, her sugars have been high, so she has been getting NPH insulin 30 units with each morning dose of steroids. She is not on any antibiotics at this time. We did reduce her beta maris as her blood pressure has been normal here. This can be adjusted as needed once she is feeling better. She is 13 days past diagnosis with improving symptoms, so she was removed from isolation on her last day in the hospital. Pending Studies at Discharge: No Stand-Alone Forms: [facility] Skilled Items Patient informed of condition?: Yes Discharge Level of Care: Other Communicable Disease: No Discharge Prognosis: Improving Lines: None Urinary Catheter: No Medications and DC Order Prescriptions: New Novolin N NPH U-100 Insulin 100 unit/mL Suspension 30 unit SC TODAY@0900 Qty: 0 RF: 0 Continued multivitamin Tablet 1 tab PO DAILY RF: 0 oxcarbazepine 150 mg Tablet 150 mg PO BID RF: 0 sertraline 100 mg Tablet 200 mg PO DAILY RF: 0 simvastatin 10 mg Tablet 10 mg PO HS RF: 0 glimepiride 2 mg Tablet 2 mg PO DAILY PRN (Reason: Blood Sugars) RF: 0 ascorbic acid (vitamin C) [Vitamin C] 500 mg Tablet 1,000 mg PO DAILY RF: 0 baclofen 10 mg Tablet 10 mg PO DAILY@11,16 RF: 0 levothyroxine 50 mcg Tablet 50 mcg PO DAILY RF: 0 pantoprazole 40 mg Tablet,Delayed Release (Dr/Ec) 40 mg PO BID RF: 0 buspirone 30 mg Tablet 30 mg PO BID RF: 0 metformin 1,000 mg Tablet 1,000 mg PO BID RF: 0 trazodone 300 mg Tablet 300 mg PO HS RF: 0 docusate sodium [Colace] 100 mg Capsule 200 mg PO DAILY RF: 0 gabapentin 300 mg Capsule 300 mg PO TID RF: 0 oxcarbazepine [Trileptal] 600 mg Tablet 600 mg PO HS RF: 0 albuterol sulfate 90 mcg/actuation Hfa Aerosol Inhaler 1 inh INHALATION QID PRN (Reason: Shortness Of Breath) RF: 0 topiramate 100 mg Tablet 100 mg PO BID RF: 0 prazosin 2 mg Capsule 2 mg PO HS RF: 0 nortriptyline 50 mg Capsule 50 mg PO HS RF: 0 trolamine salicylate [Analgesic Creme] 10 % Cream 1 applic TOPICAL BID PRN (Reason: Skin Irritation) RF: 0 quetiapine 400 mg Tablet 400 mg PO BID RF: 0 cholecalciferol (vitamin D3) [Vitamin D3] 50 mcg (2,000 unit) Tablet 50 mcg PO DAILY RF: 0 dexamethasone 0.5 mg Tablet 6 mg PO DAILY Qty: 3 RF: 0 Changed propranolol 40 mg Tablet 40 mg PO DAILY Qty: 0 RF: 0 Discontinued methocarbamol 500 mg Tablet 1,000 mg PO BID RF: 0 zinc sulfate 220 mg Tablet 220 mg PO TID RF: 0 bumetanide [Bumex] 1 mg Tablet 1 mg PO BID RF: 0 omeprazole 20 mg Tablet,Delayed Release (Dr/Ec) 40 mg PO DAILY RF: 0 Discharge Orders: Discharge Order (Routine); Ordered 09/23/20 Ordered By: Demetrio Monreal Admission Data Admit Date/Time: 09/14/20 12:45 Attending Provider: Demetrio Monreal Admit Provider: Jennifer Gloria Primary Care Provider: [facility] Other Providers: Demetrio Monreal ; Jennifer Gloria ; Magdy Briggs Other Interventions: Discharge Summary Assessment (RN) Last Done: 09/23/20 12:51 Coding Level of Care Code D/C Day Management >30 mins Diagnoses Pneumonia due to 2019 novel coronavirus U07.1; J12.82 Anemia D64.9 Diabetes E11.9 Hypothyroid E03.9 HTN (hypertension) I10 GERD (gastroesophageal reflux disease) K21.9 Hypercholesterolemia E78.00 Mood disorder F39 Morbid obesity with BMI of 40.0-44.9, adult E66.01; Z68.41 DVT prophylaxis Z29.9
== END 2020-09-23 14:58 | DRG 177 ==
LOC: ED 07:09 → 2E 12:45 → SUATTDRO 12:45 → 2E 13:16 → 1E 09-15 16:09 → 2W 09-20 13:21
DX: E03.9 Hypothyroidism, unspecified; E87.6 Hypokalemia; E66.01 Morbid (severe) obesity due to excess calories; I10 Essential (primary) hypertension; K21.9 Gastro-esophageal reflux disease without esophagitis; E11.9 Type 2 diabetes mellitus without complications; Z79.82 Long term (current) use of aspirin; J12.82 Pneumonia due to coronavirus disease 2019; E78.00 Pure hypercholesterolemia, unspecified; Z79.899 Other long term (current) drug therapy; Z79.84 Long term (current) use of oral hypoglycemic drugs; E83.39 Other disorders of phosphorus metabolism; Z87.891 Personal history of nicotine dependence; D64.9 Anemia, unspecified; E83.42 Hypomagnesemia; Z68.41 Body mass index [BMI] 40.0-44.9, adult; U07.1 COVID-19